=== PATIENT | female | born 1970 ===

== ENCOUNTER 2025-04-05 09:01 | Outpatient (AMB) | payer OTHER, SELFPAY ==
--- OUTSIDE RECORDS SUMMARY | 2025-04-05 10:01 | XMS_ITS | Encounter Summary ---
Author Organization [facility] Address [address] 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 No Sex and Gender Information Value Date Recorded Sex Assigned at Female 04/01/2020 8:33 PM EDT Legal Sex Female 9:32 PM EDT Gender Identity Female 04/01/2020 8:33 PM EDT Sexual Orientation Straight 04/01/2020 8: 33 PM EDT 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 Not on file Not on file documented as of this encounter Plan of Treatment Upcoming Encounters Date Type Department Care Team (Late st Contact Info) Description 10/04/2024 Procedure Pass [address] [address] 04/06/2025 3:45 PM EDT Appointment [facility] [address] [place] [address] Sylvie Eugene MD [address] [place] [address] documented as of this encounter Visit Diagnoses Not on filedocumented in this encounter Care Teams Outbound Sales Consultant Relationship Specialty Start Date End Date Sylvie Eugene MD [address] [place] [address] PCP - General 06/05/17 Katie Landeros NP [address] [place] [address] Historical LMR Provider 06/03/17 2 Sylvie Eugene MD [address] [place] [address] Historical LMR Provider 06/03/17 documented as of this encounter Additional Source Comments The information contained in this document represents components of the legal health record. It is not the complete legal health record.[facility]
--- OUTSIDE RECORDS SUMMARY | 2025-04-05 10:01 | XMS_ITS | Clinical Summary ---
Author Organization [facility] Address [address] [place] [address] Care Team Providers Care Paper Bag Making Machinist Name Role Phone Sylvie Eugene MD Primary Care Provider [phone] Allergies No known active allergies Medications traMADol (ULTRAM) 50 MG tablet Take 50 mg by mouth 4 times daily (every 6 hours) as needed for moderate pain or severe pain. 1-2 tabs (50-100mg) Active acetaminophen (TYLENOL) 650 MG CR tablet Take 650 mg by mouth 4 times daily (every 6 hours) as needed for mild pain or moderate pain. Active albuterol (Proventil HFA) 108 (90 Base) MCG/ACT inhaler Inhale 2 puffs 4 (four) times a day. Active aspirin (ECOTRIN) 325 MG EC tablet Take 325 mg by mouth 2 (two) times a day. Active atorvastatin (LIPITOR) 80 MG tablet Take 80 mg by mouth daily. Active docusate sodium (COLACE) 100 MG capsule Take 100 mg by mouth 2 (two) times a day. Active fluticasone (FloNASE) 50 mcg/spray nasal spray 2 sprays into each nostril daily. Active loratadine (CLARITIN) 10 MG tablet Take 10 mg by mouth daily. Active montelukast (SINGULAIR) 10 MG tablet Take 10 mg by mouth nightly. Active PANTOprazole (PROTONIX) 40 MG EC tablet Take 40 mg by mouth daily. Active polyethylene glycol (miraLAx) 17 g packet Take 17 g by mouth daily as needed for constipation. Active senna (SENOKOT) 8.6 MG Tab tablet Take 1 tablet by mouth daily as needed for constipation. Active ondansetron (ZOFRAN) 4 MG tablet Take 4 mg by mouth 4 times daily (every 6 hours) as needed for nausea or vomiting. Active Social History Tobacco Use Types Packs/Day Years Used Date Smoking Tobacco: Never Assessed OASIS D0700: Social Isolation Answer Da te Recorded Frequency of experiencing loneliness or isolatio n Never 02/01/2023 OASIS A1250: Transportation Answer Date Recorded Lack of Transportation (Medical) No 02/01/2023 Lack of Transportation (Non-Medical) No 02/01/2023 Patient Unable or Declines to Respond No 02/01/2023 Comments Unknown Sex and Gender Information Value Date Recorded Sex Assigned at Not on file Legal Sex Female 10:08 AM EDT Gender Identity Not on file Sexual Orientation Not on file Last Filed Vital Signs Vital Sign Reading Time Taken Comments Blood Pressure 118/76 02/01/2023 11:03 AM EDT Pulse 76 02/01/2023 11:03 AM EDT Temperature 36.4 C (97.5 F) 02/01/2023 11:03 AM EDT Respiratory Rate 20 01/24/2023 3:15 PM EDT Oxygen Saturation 98% 02/01/2023 11:03 AM EDT Inhaled Oxygen Concentration - - Weight 68 kg (150 lb) 01/24/2023 11:45 AM EDT Height 157.5 cm (5' 2 ) 01/24/2023 11:45 AM EDT Body Mass Index 27.44 01/24/2023 11:45 AM EDT Plan of Treatment Health Maintenance Due Date Last Done Comments Hepatitis C Virus Screening 1972 HIV Screening 1985 DTaP/Tdap/Td Vaccines (1 - Tdap) 1991 Hepatitis B Vaccines (1 of 3 - 19+ 3-dose series) 04/17 Pap Smear (Ages 21-65) 1993 Mammogram 2012 Colonoscopy 2017 Pneumococcal Vaccines 50+ (1 of 1 - PCV) 2022 Zoster (Shingles) Vaccine (1 of 2) 2022 COVID-19 Vaccine (1 - 2023- season) 2024 Influenza Vaccine 03/16/2025 Insurance Care Teams Paper Bag Making Machinist Relationship Specialty Start Date End Date Sylvie Eugene MD [address] [place] [address] PCP - General 01/23/23
--- OUTSIDE RECORDS SUMMARY | 2025-04-05 10:01 | XMS_ITS | Encounter Summary ---
Author Organization [facility] Address [address] [facility] [address] [place] [address] Care Team Providers Care Commissioner Public Works Name Role Phone Soo Han DDS Unavailable [phone] Encounter Details Date Type Department Care Team (Latest Contact Info) Description 04/28/2021 Abstract [facility] Dental, Provider, DDS Social History Tobacco Use Types Packs/Day Years Used Date Smoking Tobacco: Never Assessed Comments Unknown Sex and Gender Information Value Date Recorded Sex Assigned at Female 07/20/2022 4:28 PM EST Legal Sex Female 5:35 PM EDT Gender Identity Female 07/20/2022 4:28 PM EST Sexual Orientation Straight 05/16/2024 9: 50 AM EDT documented as of this encounter Plan of Treatment Upcoming Encounters Date Type Department Care Team (Late st Contact Info) Description 08/23/2025 2:00 PM EST Office Visit [facility] [address] [place] [address] Katty Warner documented as of this encounter Visit Diagnoses Not on filedocumented in this encounter Care Teams Commissioner Public Works Relationship Specialty Start Date End Date Soo Han DDS [address] [place] [address] Dental Analytical Research Chemist 02/22/25 documented as of this encounter
== END 2025-04-05 09:26 | disposition home or self-care (01) ==
LOC: HO.HMGAL 09:01
PROVIDERS: PCP Family Medicine; Visit Provider Registered Nurse Emergency
DX: J30.89 Other allergic rhinitis (principal)
CPT/HCPCS: 95117; 95165

== ENCOUNTER 2025-04-18 09:07 | Outpatient (AMB) | payer OTHER, SELFPAY ==
--- OUTSIDE RECORDS SUMMARY | 2025-04-18 09:48 | XMS_ITS | Encounter Summary ---
Author Organization [facility] Address [address] [facility] [address] [place] [address] Phone Care Team Providers Care Torch Straightener Name Role Phone Katie Landeros WASH TANK TENDER Unavailable [phone] Sylvie Eugene MD Unavailable [phone] Sylvie Eugene MD Primary Care Provider Encounter Details Date Type Department Care Team (Late st Contact Info) Description 04/02/2020 Procedure Pass [facility], [address] [address] Social History Tobacco Use Types Packs/Day Years Used Date Smoking Tobacco: Former Smokeless Tobacco: Never Comments:quit 24 years ago [...] Orientation Straight 04/01/2020 8: 33 PM EDT documented as of this encounter Plan of Treatment Not on file documented as of this encounter Visit Diagnoses Not on filedocumented in this encounter Care Teams Torch Straightener Relationship Specialty Start Date End Date Sylvie Eugene MD [address] [place] [address] PCP - General 06/05/17 Katie Landeros NP [address] [place] [address] Historical LMR Provider 06/03/1708/23/ 2 Sylvie Eugene MD [address] [place] [address] Historical LMR Provider 06/03/17 documented as of this encounter Additional Source Comments The information contained in this document represents components of the legal health record. It is not the complete legal health record.[facility]
--- OUTSIDE RECORDS SUMMARY | 2025-04-18 09:48 | XMS_ITS | Encounter Summary ---
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 It is not the complete legal health record.[facility]
--- OUTSIDE RECORDS SUMMARY | 2025-04-18 09:48 | XMS_ITS | Encounter Summary ---
Author Organization [facility] Address [address] [place] [address] Phone Care Team Providers Care Aerodynamics Engineer Name Role Phone Katie Landeros DIRECTOR OF GRADUATE ADMISSIONS Unavailable [phone] Sylvie Eugene MD Unavailable [phone] Sylvie Eugene MD Primary Care Provider Encounter Details Date Type Department Care Team (Late st Contact Info) Description 04/01/2020 Procedure Pass [facility], [facility] - [address] [id number] Social History Tobacco Use Types Packs/Day Years [...] on filedocumented in this encounter Care Teams Aerodynamics Engineer Relationship Specialty Start Date End Date Sylvie Eugene MD [address] [place] [address] PCP - General 06/05/17 Katie Landeros NP [address] [place] [address] Historical LMR Provider 06/03/17 2 Sylvie Eugene MD [address] [place] [address] Historical LMR Provider 06/03/17 documented as of this encounter Additional Source Comments The information contained in this document represents components of the legal health record. It is not the complete legal health record.[facility]
--- OUTSIDE RECORDS SUMMARY | 2025-04-18 09:48 | XMS_ITS | Encounter Summary ---
Author Organization [facility] Address [address] [place] [address] Phone Care Team Providers Care Sheetmetal Patternmaker Name Role Phone Sylvie Eugene MD Unavailable [phone] Sylvie Eugene MD Primary Care Provider Encounter Details Date Type Department Care Team (Late st Contact Info) Description 09/29/2023 Procedure Pass [facility], [facility] [address] [place] [address] Social History Tobacco Use Types Packs/Day Years Used Date Smoking Tobacco: Former Cigarettes 0 08/16/1990 - 08/16/1996 Smokeless Tobacco: Never Comments:quit 24 years ago Alcohol Use Standard Drinks/Week Comments Not 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 Not on anastacia e 12/11/2022 Are you concerned about learning? Not on file 12/11/2022 No 12/11/2022 No 12/11/2022 Digital Access Answer Date Recorded No 01/11/2023 No 01/11/2023 Reliable internet access at home? Not on file 01/11/2023 Device with a working camera? 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 It is not the complete legal health record.[facility]
--- OUTSIDE RECORDS SUMMARY | 2025-04-18 09:48 | XMS_ITS | Encounter Summary ---
Author Organization [facility] Address [address] [facility] [address] [place] [address] Care Team Providers Care File Drawer Finisher Name Role Phone Soo Han DDS Unavailable [phone] Encounter Details Date Type Department Care Team (Latest Contact Info) Description 09/19/2020 Abstract [facility] Dental, Provider, DDS Social [...] Description 08/23/2025 2:00 PM EST Office Visit [facility] DENTAL [address] [place] [address] Katty Warner documented as of this encounter Visit Diagnoses Not on filedocumented in this encounter Care Teams File Drawer Finisher Relationship Specialty Start Date End Date Soo Han DDS [address] [place] [address] Dental Management Assistant 02/22/25 documented as of this encounter
--- OUTSIDE RECORDS SUMMARY | 2025-04-18 09:48 | XMS_ITS | Encounter Summary ---
Author Organization [facility] Address [address] [facility] [address]t [place] [address] Care Team Providers Care Employment Advisor Name Role Phone Soo Han DDS Unavailable [phone] Encounter Details Date Type Department Care Team (Latest Contact Info) Description 03/14/2020 Abstract [facility] Dental, Provider, DDS Social [...] Description 08/23/2025 2:00 PM EST Office Visit [facility] [address] [place] [address] Katty Warner documented as of this encounter Visit Diagnoses Not on filedocumented in this encounter Care Teams Employment Advisor Relationship Specialty Start Date End Date Soo Han DDS [address] [place] [address] Dental Tow Truck Driver 02/22/25 documented as of this encounter
--- OUTSIDE RECORDS SUMMARY | 2025-04-18 09:48 | XMS_ITS | Encounter Summary ---
Author Organization [facility] Address [address] [facility] 7t [place] [address] Care Team Providers Care Constitutional Law Professor Name Role Phone Soo Han DDS Unavailable [phone] Encounter Details Date Type Department Care Team (Latest Contact Info) Description 10/31/2021 Abstract [facility] Dental, Provider, DDS Social [...] Description 08/23/2025 2:00 PM EST Office Visit [facility] D[facility] [address] [place] [address] Katty Warner documented as of this encounter Visit Diagnoses Not on filedocumented in this encounter Care Teams Constitutional Law Professor Relationship Specialty Start Date End Date Soo Han DDS [address] [place] [address] Dental Bowling Floor Desk Clerk 02/22/25 documented as of this encounter
--- OUTSIDE RECORDS SUMMARY | 2025-04-18 09:48 | XMS_ITS | Encounter Summary ---
Author Organization [facility] Address [address] [facility] [address] [place] [address] Phone Care Team Providers Care Bilingual Nanny Name Role Phone Katie Landeros NP Unavailable [phone] Sylvie Eugene MD Unavailable Sylvie Eugene MD Primary Care Provider Encounter Details Date Type Department Care Team (Late st Contact Info) Description 06/15/2019 Ancillary Orders Virtual Department [address] [place] [address] Sylvie Eugene MD [address] [place] [address] Breast screening Social History Tobacco Use Types Packs/Day Years [...] on file documented as of this encounter Results * BI MAMMOGRAM SCREENING WITH TOMOSYNTHESIS WITH CAD (BILATERAL) (07/21/2019 1:52 PM EST) Anatomical Region Laterality Modality Breast Left, Breast Right, Breast Bilateral Bila teral Mammography 07/23/2019 5:58 PM EST Impressions 07/23/2019 6:02 PM EST No findings suspicious for malignancy. In the absence of a worrisome palpable abnormality, annual screening mammography is recommended. BI-RADS CATEGORY: 2 - Benign finding. DENSITY: There are scattered fibroglandular densities. POS [id number] Narrative 07/23/2019 6:02 PM EST COMPARISON: 05/18/2012 through 07/16/2017. Bilateral 3-D tomosynthesis with 2-D reconstructions in the CC and MLO projection of each breast was obtained. Computer-aided detection system also utilized. No new mass, asymmetry, architectural distortion or suspicious calcifications have become apparent on either side. Slight increase in scattered punctate calcifications bilaterally but no new worrisome clusters. Procedure Note Abdirahman Herzog MD - 07/23/2019 COMPARISON: 05/18/2012 through 07/16/2017. Bilateral 3-D tomosynthesis with 2-D reconstructions in the CC and MLOprojection of each breast was obtained. Computer-aided detection systemalso utilized. No new mass, asymmetry, architectural distortion or suspiciouscalcifications have become apparent on either side. Slight increase in scattered punctate calcifications bilaterally but nonew worrisome clusters. IMPRESSION: No findings suspicious for malignancy. In the absence of a worrisomepalpable abnormality, annual screening mammography is recommended. BI-RADS CATEGORY: 2 - Benign finding. DENSITY: There are scattered fibroglandular densities. POS [id number] Sylvie Eugene MD IMG MG EXAMS Final R esult documented in this encounter Visit Diagnoses Diagnosis Breast screening Breast screening, unspecified Breast screening Breast screening, unspecified documented in this encounter Care Teams Bilingual Nanny Relationship Specialty Start Date End Date Sylvie Eugene MD [address] [place] [address] PCP - General 06/05/17 Katie Landeros NP [address] [place] [address] Historical LMR Provider 06/03/17 2 Sylvie Eugene MD [address] [place] [address] Historical LMR Provider 06/03/17 documented as of this encounter Additional Source Comments The information contained in this document represents components of the legal health record. It is not the complete legal health record.[facility]
--- OUTSIDE RECORDS SUMMARY | 2025-04-18 09:48 | XMS_ITS | Encounter Summary ---
Author Organization [facility] Address [address] [facility] [address] [place] [address] Phone Care Team Providers Care Flexible Babysitter Name Role Phone Katie Landeros NP Unavailable [phone] Sylvie Eugene MD Unavailable [phone] Sylvie Eugene MD Primary Care Provider Encounter Details Date Type Department Care Team (Late st Contact Info) Description 06/05/2017 Ancillary Orders [facility], [facility] [address] [place] [address] Sylvie Eugene MD [address] [place], [place] [phone] Diagnosis unknown Social History Tobacco Use Types Packs/Day Years [...] MAMMOGRAM SCREENING WITH TOMOSYNTHESIS WITH CAD (BILATERAL) (07/16/2017 3:39 PM EST) Anatomical Region Laterality Modality Breast Left, Breast Right, Breast Bilateral Bila teral Mammography 07/20/2017 11:3 2 AM EST Impressions 07/20/2017 11:37 AM EST Normal negative. Annual screening is recommended. Patient notified by letter. BI-RADS CATEGORY: 1 - Negative. DENSITY: The breast tissue is extremely dense, an appearance which could obscure a lesion on mammography. POS: [id number] Narrative 07/20/2017 11:37 AM EST Screening Mammogram, bilateral with utilization of computer aided detection and tomosynthesis as well as 2-D C view imaging. Comparison: Dating back to 2013 and the most recent prior examination dated 2015. Findings: No suspicious masses or suspicious clustered microcalcifications are present. No architectural distortion or significant asymmetry is present. Breasts are composed of area dense breast parenchyma. Procedure Note Rachell Bansal MD - 07/20/2017 Screening Mammogram, bilateral with utilization of computer aideddetection and tomosynthesis as well as 2-D C view imaging. Comparison: Dating back to 2013 and the most recent prior examinationdated 2015. Findings: No suspicious masses or suspicious clustered microcalcificationsare present. No architectural distortion or significant asymmetry ispresent. Breasts are composed of area dense breast parenchyma. IMPRESSION: Normal negative. Annual screening is recommended. Patient notified by letter. BI-RADS CATEGORY: 1 - Negative. DENSITY: The breast tissue is extremely dense, an appearance which couldobscure a lesion on mammography. POS: [id number] Sylvie Eugene MD IMG MG EXAMS Final R esult documented in this encounter Visit Diagnoses Diagnosis Diagnosis unknown Diagnosis unknown documented in this encounter Care Teams Flexible Babysitter Relationship Specialty Start Date End Date Sylvie Eugene MD [address] [place] [address] PCP - General 06/05/17 Katie Landeros NP [address] [place] [address] Historical LMR Provider 06/03/1708/23/ 2 Sylvie Eugene MD [address] [place] [address] Historical LMR Provider 06/03/17 documented as of this encounter Additional Source Comments The information contained in this document represents components of the legal health record. It is not the complete legal health record.[facility]
--- OUTSIDE RECORDS SUMMARY | 2025-04-18 09:48 | XMS_ITS | Encounter Summary ---
Author Organization [facility] Address [address] [facility] [address] [place] [address] Phone Care Team Providers Care Media Marketing Director Name Role Phone Katie Landeros DUMP MOTOR OPERATOR Unavailable [phone] Sylvie Eugene MD Unavailable [phone] Sylvie Eugene MD Primary Care Provider Encounter Details Date Type Department Care Team (Late st Contact Info) Description 05/09/2020 Procedure Pass [facility], [address] [id number] Social History Tobacco Use Types Packs/Day Years [...] on filedocumented in this encounter Care Teams Media Marketing Director Relationship Specialty Start Date End Date Sylvie Eugene MD [address] [place] [address] PCP - General 06/05/17 Katie Landeros NP [address] [place] [address] Historical LMR Provider 06/03/1708/23/ 2 Sylvie Eugene MD [address] [place] [address] Historical LMR Provider 06/03/17 documented as of this encounter Additional Source Comments The information contained in this document represents components of the legal health record. It is not the complete legal health record.[facility]
--- OUTSIDE RECORDS SUMMARY | 2025-04-18 09:48 | XMS_ITS | Encounter Summary ---
Author Organization [facility] Address [address] [facility] [address] [place] [address] Phone Care Team Providers Care Model Builder Name Role Phone Katie Landeros NP Unavailable Sylvie Eugene MD Unavailable [phone] Sylvie Eugene MD Primary Care Provider Encounter Details Date Type Department Care Team (Late st Contact Info) Description 05/09/2020 Ancillary Orders Virtual Department [address] [place] [address] Sylvie Eugene MD [address] [place] [address] Breast cancer screening by mammogram Social History Tobacco Use Types Packs/Day Years [...] documented as of this encounter Results * (ABNORMAL) BI MAMMOGRAM SCREENING WITH TOMOSYNTHESIS WITH CAD (BILATERAL) (09/18/2020 10:07 AM EST) Anatomical Region Laterality Modality Breast Left, Breast Right, Breast Bilateral Bila teral Mammography 09/18/2020 11:1 4 AM EST Impressions 09/18/2020 11:26 AM EST Recommend additional imaging for possible developing small mass in the left breast. No other findings suspicious for malignancy. The radiology department will attempt to recall the patient for the additional imaging. BI-RADS CATEGORY: 0 - Incomplete. Need additional imaging evaluation. DENSITY: The breast tissue is heterogeneously dense, which could obscure a lesion on mammography. LEFT RECOMMENDATION DUE DATE: 1 Month Left Additional Imaging RIGHT RECOMMENDATION DUE DATE: 12 Months Right Mammography Screening Recall imaging: Spot compression MLO, 90 degrees ML views left breast, block off left breast ultrasound in case necessary. Narrative 09/18/2020 11:26 AM EST Bilateral mammography is performed in conjunction with computed aided detection. 3-D tomography along with 2-D C view imaging was also performed. Comparison made to previous dated as far back as 05/19/2013 and as recent as 07/21/2019. Possible new partially obscured sub-centimeter mass in the mid-anterior left breast on the MLO tomosynthesis views slightly above the nipple line. Visible correlate is not demonstrated on the cc view. No other suspicious masses, areas of architectural distortion or suspicious microcalcifications. A few scattered bilateral microcatheter occasions are stable. Procedure Note Andrews Mcfadden MD - 09/18/2020 Bilateral mammography is performed in conjunction with computed aideddetection. 3-D tomography along with 2-D C view imaging was alsoperformed. Comparison made to previous dated as far back as 05/19/2013 andas recent as 07/21/2019. Possible new partially obscured sub-centimeter mass in the mid-anteriorleft breast on the MLO tomosynthesis views slightly above the nipple line.Visible correlate is not demonstrated on the cc view. No other suspiciousmasses, areas of architectural distortion or suspiciousmicrocalcifications. A few scattered bilateral microcatheter occasions arestable. IMPRESSION: Recommend additional imaging for possible developing small mass in theleft breast. No other findings suspicious for malignancy. The radiology department will attempt to recall the patient for theadditional imaging. BI-RADS CATEGORY: 0 - Incomplete. Need additional imaging evaluation. DENSITY: The breast tissue is heterogeneously dense, which could obscurea lesion on mammography. LEFT RECOMMENDATION DUE DATE: 1 Month Left Additional Imaging RIGHT RECOMMENDATION DUE DATE: 12 Months Right Mammography Screening Recall imaging: Spot compression MLO, 90 degrees ML views left breast,block off left breast ultrasound in case necessary. us Sylvie Eugene MD IMG MG EXAMS Final R esult documented in this encounter Visit Diagnoses Diagnosis Breast cancer screening by mammogram Breast cancer screening by mammogram documented in this encounter Care Teams Model Builder Relationship Specialty Start Date End Date Sylvie Eugene MD [address] [address] PCP - General 06/05/17 Katie Landeros NP [address] [place] [address] Historical LMR Provider 06/03/17 2 Sylvie Eugene MD [address] [place] [address] Historical LMR Provider 06/03/17 documented as of this encounter Additional Source Comments The information contained in this document represents components of the legal health record. It is not the complete legal health record.[facility]
--- OUTSIDE RECORDS SUMMARY | 2025-04-18 09:48 | XMS_ITS | Encounter Summary ---
Author Organization [employer] Address [address] [facility] [address] [place] [address] Care Team Providers Care Review Manager Name Role Phone Soo Han DDS Unavailable [phone] Encounter Details Date Type Department Care [...] Description 08/23/2025 2:00 PM EST Office Visit [facility] DENT[facility] [address] [place] [address] Katty Warner documented as of this encounter Visit Diagnoses Not on filedocumented in this encounter Care Teams Review Manager Relationship Specialty Start Date End Date Soo Han DDS [address] [place] [address] Dental Par[employer]utuel Ticket Seller 02/22/25 documented as of this encounter
--- OUTSIDE RECORDS SUMMARY | 2025-04-18 09:48 | XMS_ITS | Clinical Summary ---
Author Organization [facility] Address [address] [facility] [address] [place] [address] Phone Care Team Providers Care Senior Planning Analyst Name Role Phone Sylvie Eugene MD Unavailable [phone] Sylvie Eugene MD Primary Care Provider Allergies Active Allergy Reactions Criticality Noted Date Comments Cat/Feline Products 06/09/2023 House Dust 06/09/2023 Other reaction(s): dust mites Pollen Extracts 06/09/2023 Other reaction(s): trees,grass,stone Medications montelukast sodium (MONTELUKAST ORAL) Take by mouth. Active loratadine (CLARITIN) 10 mg tablet Take 10 mg by mouth daily. Active acetaminophen (TYLENOL) 325 mg tablet Take 2 tablets (650 mg total) by mouth every 6 (six) hours as needed for mild pain or headache. 30 tablet 04/03/2020 Active fluticasone propionate (FLONASE ALLERGY RELIEF NASL) 01/14/2005 Active aspirin 325 MG EC tablet Take 1 tablet by mouth every morning. 05/14/2023 Active albuterol 90 mcg/actuation inhaler Inhale 2 puffs into the lungs. 05/17/2020 Active LIPITOR 80 mg tablet Take 80 mg by mouth daily. Active ferrous sulfate 325 mg (65 mg ewiiaapaayp iron) EC tablet Take 325 mg by mouth daily with breakfast. 04/03/2024 Active ascorbic acid, vitamin C, (VITAMIN C) 100 MG tablet Take 100 mg by mouth daily. 04/12/2024 Active Active Problems Problem Noted Date Diagnosed Date Fibroids 01/18/2024 Assessment & Plan (01/18/2024 11:41 AM EDT): The natural history of fibroids was reviewed with the patient. I explained that most fibroids tend to shrink during menopause or at least not grow any further. I explained that the fibroids appear to be stable on ultrasound. Pap smear of cervix with ASCUS, cannot exclude H GSIL 06/25/2023 Assessment & Plan (01/18/2024 11:41 AM EDT): I reviewed the natural history of cervical dysplasia with the patient including appropriate follow-up and treatment. The plan is for repeat Pap and colposcopy in July of this year. Occipital cerebral infarction 04/02/2020 Assessment & Plan (04/02/2020 5:49 PM EDT): Exam today reveals mild decrease sensation right face, and blurry vision of the right periphery. Patient started on aspirin 325 mg daily high-dose statin. This is hypertension has been allowed and blood pressures have been 120s to 140 systolically. *Hypercoagulable labs drawn. *Telemetry reveals sinus rhythm with no evidence of A. Fib. *CTA of the head neck shows no evidence of arterial stenosis. *Echocardiogram-no evidence of arterial septal defect. No evidence of patent foramen ovale. Normal EF no valvular abnormalities. Tele-neurology consulted and recommendations:- -MRI of the brain to confirm that findings on CT and clinically are indeed a stroke. -Dual platelet treatment with aspirin and Plavix for 3 weeks. If in fact patient has a stroke continue Plavix indefinitely and stop aspirin after 3 weeks. -Tele monitoring for afib and implantable loop recorder/30-day holtor at discharge. - OT for evaluation of ability to drive given peripheral vision disturbance. - Recommends outpatient malignant screening-i.e. mammogram, Pap smear. -Follow-up at [facility] stroke clinic in 1 to 2 months for further evaluation of stroke in young person. If MRI does not reveal acute stroke reconsult tele-neurology for further recommendations. Encounters Date Type Department Care Team Description 04/06/2025 3:29 PM EDT - 04/06/2025 11:59 PM EDT Hospital Encounter [facility] [address] [place] [address] Sylvie Eugene MD Discharge Disposition: Home or Self Care 10/04/2024 Procedure Pass [facility] [address] [place] [address] from Last 3 Months Family History Medical History Relation Comments Alzheimer's disease Maternal Grandfather Diabetes Maternal Grandmother Parkinson's disease Maternal Grandmother Cancer Paternal Grandmother Heart block Paternal Grandmother Breast cancer Neg Hx Relation Status Comments Father Alive Maternal Grandfather Maternal Grandmother Mother Alive Paternal Grandfather Paternal Grandmother Sister Alive Social History Tobacco Use Types Packs/Day Years Used Date Smoking Tobacco: Former Cigarettes 0 08/16/1990 - 08/16/1996 Smokeless Tobacco: Never Tobacco Cessation:Counseling Given: Not Answered Comments:quit 24 years ago Alcohol Use Standard [...] 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 Not on file Not on file Last Filed Vital Signs Vital Sign Reading Time Taken Comments Blood Pressure 112/74 07/25/2024 8:40 AM EST Pulse 73 04/03/2020 11:32 AM EDT Temperature 37.2 C (99 F) 04/03/2020 11:32 AM EDT Respiratory Rate 16 04/03/2020 11:32 AM EDT Oxygen Saturation 95% 04/03/2020 9:45 AM EDT Inhaled Oxygen Concentration - - Weight 57.2 kg (126 lb) 07/25/2024 8:40 AM EST Height 157.5 cm (5' 2 ) 07/25/2024 8:40 AM EST Body Mass Index 23.05 07/25/2024 8:40 AM EST Plan of Treatment Health Maintenance Due Date Last Done Comments DEPRESSION SCREENING 1984 HEPATITIS C SCREENING 1990 HIV ONE-TIME SCREENING (18-65 YEARS) 1990 COLOGUARD 2017 COLONOSCOPY 2017 COLORECTAL CANCER SCREENING 2017 FIT TEST 2017 FOBT 2017 SIGMOIDOSCOPY 2017 VIRTUAL COLONOSCOPY 2017 PNEUMOCOCCAL VACCINES (50+ years) (2 of 2 - PCV) 2022 09/20/2017 ZOSTER VACCINES (1 of 2) 2022 INFLUENZA VACCINE (#1) 2025 , 05/11/2022, 05/11/2022, Additional history exists LIPID PANEL 04/02/2025 04/02/2020, 04/02/2020 COVID-19 VACCINE ( season) 2025 05/11/2022, 06/22/2021, 11/27/2020, Additional history exists PAP SMEAR 07/25/2025 07/25/2024, 11/15, 06/09/2023 SMOKING Hx and SMOKELESS TOBACCO SCREENING 04/06/2026 04/06/2025 MAMMOGRAM 04/06/2027 04/06/2025, 12/14, 12/18/2022, Additional history exists Adult Td,Tdap Booster 10/12/2032 10/12/2022, 013 HEPATITIS A VACCINES Aged Out No long er eligible based on patient's age to complete this topic HIB VACCINES Aged Out No longer eligi ble based on patient's age to complete this topic MENINGOCOCCAL VACCINES (ACWY) Aged Out No longer eligible based on patient's age to complete this topic MENINGOCOCCAL VACCINES (B) Aged Out N o longer eligible based on patient's age to complete this topic Medical Devices Not on file Procedures Procedure Name Priority Date/Time Associated Diagnosis Comments BI MAMMOGRAM SCREENING WITH TOMOSYNTHESIS WITH CAD (BILATERAL) Routine 04/06/2025 3:43 PM EDT Breast screening PAP TEST Routine 07/25/2024 12:00 AM EST LIPID PANEL Routine 04/02/2020 3:23 AM EDT from Last 3 Months or Most Recently Relevant to Health Maintenance Results * BI MAMMOGRAM SCREENING WITH TOMOSYNTHESIS WITH CAD (BILATERAL) (04/06/2025 3:43 PM EDT) Anatomical Region Laterality Modality Breast Left, Breast Right, Breast Bilateral Bila teral Mammography 04/09/2025 8:51 AM EDT Impressions 04/09/2025 8:53 AM EDT No mammographic evidence of malignancy in either breast. Annual screening mammography is recommended. BI-RADS 2 BENIGN The patient will be notified of the results and recommendations. Narrative 04/09/2025 8:53 AM EDT BI MAMMOGRAM SCREENING WITH TOMOSYNTHESIS WITH CAD (BILATERAL) Additional patient information: Screening. COMPARISON: Comparison is made with relevant prior imaging. Breast composition: The breasts are heterogeneously dense, which may obscure small masses. FINDINGS: Stable benign calcifications in both breasts. No abnormal masses, suspicious calcifications, or other significant findings are identified mammographically in either breast. Procedure Note Ada Elizondo MD - 04/09/2025 BI MAMMOGRAM SCREENING WITH TOMOSYNTHESIS WITH CAD (BILATERAL) Additional patient information: Screening. COMPARISON: Comparison is made with relevant prior imaging. Breast composition: The breasts are heterogeneously dense, which mayobscure small masses. FINDINGS: Stable benign calcifications in both breasts. No abnormal masses, suspicious calcifications, or other significantfindings are identified mammographically in either breast. IMPRESSION: No mammographic evidence of malignancy in either breast. Annual screening mammography is recommended. BI-RADS 2 BENIGN The patient will be notified of the results and recommendations. us Sylvie Eugene MD IMG MG EXAMS Final R esult * (ABNORMAL) Pap Test (07/25/2024 12:00 AM EST) 07/25/2024 07/26/2024 9:2 8 AM EST Narrative SEE NARRATIVE - 07/27/2024 2:17 PM EST [address] [address] Regional Manager: Spencer Wright MD MANAGER PUBLISHING Cytology Report FINAL DIAGNOSIS A. PAP SMEAR (THIN PREP) CE: SPECIMEN ADEQUACY: Satisfactory for evaluation; transformation zone absent/insufficient. INTERPRETATION: EPITHELIAL CELL ABNORMALITY - SQUAMOUS. Low grade squamous intraepithelial lesion. This specimen was analyzed by the automated ThinPrep Imaging System ([employer] and manually rescreened by a wash oil cooler operator and/or pathologist. Electronically Signed Out By: MD Paradise Munoz CT(ASCP) By his/her signature above, the pathologist listed as making the Final Diagnosis certifies that he/she has personally reviewed this case and confirmed or corrected the diagnosis. The Pap test is a screening test primarily for squamous cancers and precursors and has associated false-negative and false-positive results. New technologies such as liquid-based preparations may decrease but will not eliminate all false-negative results. Regular sampling and follow-up of unexplained clinical signs and symptoms are recommended to minimize false negative results. PROCEDURES/ADDENDA HPV Testing (Requested) Ordered Date: 07/26/2024 A. PAP SMEAR (THIN PREP) CE: High-risk HPV Panel w/ extended genotyping POS HPV 16-NEG HPV 18-NEG HPV 45-NEG HPV 33/58-NEG HPV 31-NEG HPV 56/59/66-NEG HPV 51-NEG HPV 52-POS HPV 35/39/68-NEG Performed by real-time polymerase chain reaction (PCR) at [facility], [address] [place] [address] using the FDA-approved [employer] Onclarity9 HPV Assay with extended genotyping. Uses of the assay in scenarios other than those approved by the FDA should be considered off-label use. The accuracy and precision of this test for all other off-label specimen sources has been verified in the Cytopathology Laboratory of the [facility] and has not been cleared or approved by the U.S. Food and Drug Administration. Clinical correlation is advised. The assay assesses the E6/E7 DNA target and utilizes human beta globin as an internal control. Cytology and HPV testing are screening assays and should not be used as the sole means of detecting cancer. False-positives and false-negatives can occur. CLINICAL HISTORY Date of Last Menstrual Period: 10-08-2022 Menstrual History: Post Menopausal Infection History: HPV: OTHER HIGH RISK, 2022, 2023 Treatment History: Concurrent BXs Other Clinical Conditions: Screening Pap Abnormal PAP: ASCUS-H, 2022 SPECIMEN SOURCE A: PAP SMEAR (THIN PREP) CE Patient Name: KADEEM LEWIS : 1970 (Age: 54) Sex: F Institution: [facility] Location: [facility] Date of Collection: 07/25/2024 Date of Reported: 07/27/2024 12:54 Results to: Norman Godron MD, BS Norman Gordon MD CYTOLOGY ORDERABLES Edited Re sult - Final SEE NARRATIVE * (ABNORMAL) Lipid panel (04/02/2020 3:23 AM EDT) HDL 67 mg/dL [facility] Comment: Interpretation <40 mg/dL: Low HDL cholesterol (major risk factor for CHD) Greater than or equal to 60 mg/dL: High HDL cholesterol ( negative risk factor for CHD) HDL - cholesterol is affected by a number of factors, e.g. smoking, excerise, hormones, sex and age. CHOLESTEROL 204 0 - 240 mg/dL [facility] TRIGLYCERIDES 131 30 - 160 mg/dL [facility] LDL 111 50 - 129 mg/dL [facility] Comment: LDL levels in terms of risk for coronary heart disease: <100 mg/dL: Optimal 100-129 mg/dL: Near or above optimal 130-159 mg/dL: Borderline high 160-189 mg/dL: High >190 mg/dL: Very High CARDIAC RISK RATIO 3.0(L) 3.3 - 4.4 C [facility] 04/02/2020 3:23 AM EDT 04/02/2020 3:32 AM EDT us Garett Romo MD LAB BLOOD ORDERABLES Fin al Result [address] [address] from Last 3 Months or Most Recently Relevant to Health Maintenance Insurance [facility] Advance Directives For more information, please contact: [phone] (9AM - 5PM [place], Wednesday-Wednesday) * Full Code (Confirmed) (Latest Code Status on File) Date Activated Date Inactivated Comments 04/02/2020 5:37 AM Question Answer Comments Code Status Confirmed With: Patient Code Status Communicated To: Inpatient Attending Care Teams Senior Planning Analyst Relationship Specialty Start Date End Date Sylvie Eugene MD [address] [place] [address] PCP - General 06/05/17 Sylvie Eugene MD Historical LMR Provider 06/03/17 Additional Source Comments The information contained in this document represents components of the legal health record. It is not the complete legal health record.[facility]
--- OUTSIDE RECORDS SUMMARY | 2025-04-18 09:48 | XMS_ITS | Encounter Summary ---
Author Organization [facility] Address [address] [place] [address] Phone Care Team Providers Care President Name Role Phone Katie Landeros DIALYSIS CHIEF EQUIPMENT TECHNICIAN Unavailable [phone] Sylvie Eugene MD Unavailable [phone] Sylvie Eugene MD Primary Care Provider Encounter Details Date Type Department Care Team (Late st Contact Info) Description 04/01/2020 Procedure Pass [facility], Ct Scan - [address] [id number] Social History Tobacco Use Types Packs/Day Years [...] on filedocumented in this encounter Care Teams President Relationship Specialty Start Date End Date Sylvie Eugene MD [address] [place] [address] PCP - General 06/05/17 Katie Landeros NP [address] [place] [address] Historical LMR Provider 06/03/17 2 Sylvie Eugene MD [address] [place] [address] Historical LMR Provider 06/03/17 documented as of this encounter Additional Source Comments The information contained in this document represents components of the legal health record. It is not the complete legal health record.[facility]
--- OUTSIDE RECORDS SUMMARY | 2025-04-18 09:48 | XMS_ITS | Encounter Summary ---
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 file Not on file documented as of this encounter Plan of Treatment Not on file documented as of this encounter Visit Diagnoses Not on filedocumented in this encounter Care Teams Medical Writer Relationship Specialty Start Date End Date Sylvie Eugene MD [address] [place] [address] PCP - General 06/05/17 Katie Landeros NP [address] [place] [address] Historical LMR Provider 06/03/17 2 Sylvie Eugene MD [address] [place] [address] Historical LMR Provider 06/03/17 documented as of this encounter Additional Source Comments The information contained in this document represents components of the legal health record. It is not the complete legal health record.[facility]
--- OUTSIDE RECORDS SUMMARY | 2025-04-18 09:48 | XMS_ITS | Clinical Summary ---
Author Organization [employer] Address [address] [place] [address] 7t [place] [address] Care Team Providers Care Road Supervisor Of Engines Name Role Phone Soo Han DDS Unavailable [phone] Allergies No known active allergies Medications amoxicillin (Amoxil) 500 MG capsule TAKE 4 CAPSULES BY MOUTH 1 HOUR BEFORE DENTAL APPOINTMENT 4 Active albuterol 108 (90 Base) MCG/ACT inhaler Inhale 2 puffs. 0 Active aspirin 325 MG EC tablet Take 325 mg by mouth 2 times daily. Active Lipitor 80 MG tablet Take 80 mg by mouth. 2 Active fluticasone (Flonase) 50 MCG/ACT nasal spray Administer 2 sprays into affected nostril(s) Once per day. Active loratadine (Claritin) 10 MG tablet Take 10 mg by mouth Once per day. 8 Active montelukast (Singulair) 10 MG tablet See Instructions, TAKE 1 TABLET DAILY BEFORE DINNER, # 90 tablet, Refills 1, Tot. Refills 1, Maintenance, 03/01/24 10:16:00 EDT, Instructions Replace Required Details, Route to Pharmacy Electronically, [facility], 158, cm, 01/05... 2 Active Encounters Date Type Department Care Team Description 03/14/2025 3:00 PM EDT Office Visit [facility] DENTAL [address] [place] [address] Soo Han DDS 03/08/2025 Travel 02/28/2025 3:00 PM EDT Office Visit [facility] DENT[facility] [address] [place] [address] Soo Han DDS 02/28/2025 Travel 02/27/2025 Travel 02/14/2025 2:00 PM EDT Office Visit [facility] DENT[facility] [address] [place] [address] Soo Han DDS 02/08/2025 3:00 PM EDT Office Visit [facility] DENT[facility] [address] [place] [address] Katty Warner Encounter for dental examination (Primary Dx); Accretions on teeth; Dental calculus; Stage 2 grade A localized periodontitis per AAP/EFP 2017 classification 02/07/2025 Travel from Last 3 Months Social History Tobacco Use Types Packs/Day Years Used Date Smoking Tobacco: Never Assessed Comments Unknown Sex and Gender Information Value Date Recorded Sex Assigned at Female 07/20/2022 4:28 PM EST Legal Sex Female 5:35 PM EDT Gender Identity Female 07/20/2022 4:28 PM EST Sexual Orientation Straight 05/16/2024 9: 50 AM EDT Last Filed Vital Signs Vital Sign Reading Time Taken Comments Blood Pressure 91/69 03/14/2025 3:10 PM EDT Pulse 68 03/14/2025 3:10 PM EDT Temperature - - Respiratory Rate - - Oxygen Saturation - - Inhaled Oxygen Concentration - - Weight - - Height - - Body Mass Index - - Plan of Treatment Upcoming Encounters Date Type Department Care Team (Late st Contact Info) Description 08/23/2025 2:00 PM EST Office Visit [facility] DENTAL [address] [place] [address] Katty Warner Health Maintenance Due Date Last Done Comments CT Colonography 1972 Colonoscopy 1972 Colorectal Cancer Screening 1972 Depression Screening 1972 FIT DNA/Cologuard 1972 FIT 1972 FOBT 1972 HIV Screening 1972 SDOH Screening 1972 Sigmoidoscopy 1972 Disability Screening 1972 Alcohol/Substance Use Screening 1984 Tobacco Screening 1984 Family Planning (PISQ) 1987 Hepatitis C Screening 1990 Hepatitis B Vaccines (1 of 3 - 19+ 3-dose series) 1991 Pap Smear 1993 Cervical Cancer Screening 2002 HPV/Cotest 2002 Pneumococcal Vaccine: 50+ Years (2 of 2 - PCV) 09/20/2018 09/20/2017 Zoster Vaccines (1 of 2) 2022 COVID-19 Vaccine (5 - season) 2024 05/11/2022, 06/22/2021, 11/27/2020, Additional history exists Influenza Vaccine (#1) 2025 , 05/11/2022, 05/11/2022, Additional history exists Dental Oral Exam 08/11/2025 02/08/2025, 01/2024, 12/27/2023, Additional history exists Dental Prophylaxis 08/11/2025 02/08/2025, 1 08/21/2023, 12/27/2023, Additional history exists Dental X-Ray: Full Mouth 11/07/2025 11/06/2022, 12/2016 Mammogram 12/23/2025 12/24/2023, 12/14, 12/18/2022, Additional history exists Dental X-Ray: Bitewings 02/09/2026 02/09/20, 12/27/2023, 11/06/2022, Additional history exists DTaP/Tdap/Td Vaccines (3 - Td or Tdap) 10/12/2032 10/12/2022, 08/18/2012 RSV Patients and Patients Aged 60 years or older (1 - 1-dose 75+ series) 2047 HIB Vaccines Aged Out No longer eligi ble based on patient's age to complete this topic HPV Vaccines Aged Out No longer eligi ble based on patient's age to complete this topic Hepatitis A Vaccines Aged Out No long er eligible based on patient's age to complete this topic IPV Vaccines Aged Out No longer eligi ble based on patient's age to complete this topic Meningococcal B Vaccine Aged Out No l onger eligible based on patient's age to complete this topic Meningococcal Vaccine Aged Out No marycarmen og eligible based on patient's age to complete this topic RSV under 20 months Aged Out No longe r eligible based on patient's age to complete this topic Rotavirus Vaccines Aged Out No longer eligible based on patient's age to complete this topic Procedures Procedure Name Priority Date/Time Associated Diagnosis Comments 31 CROWN - PORCELAIN FUSED TO HIGH MO METAL Routine 03/14/2025 3:00 PM EDT 24 DIF RESIN-BASED COMPOSITE - 3 SURF, ANTERIOR Routine 02/28/2025 3:00 PM EDT 31 CORE BUILDUP, INCL ANY PINS WHEN REQ Routine 02/14/2025 2:00 PM EDT 31 CROWN PREP Routine 02/14/2025 2:00 PM EDT BITEWINGS - 4 RADIOGRAPHIC IMAGES Routine 02/08/2025 3:00 PM EDT Full PROPHYLAXIS - ADULT Routine 025 3:00 PM EDT PERIODIC ORAL EVALUATION - ESTABLISHED PATIENT Routine 02/08/2025 3:00 PM EDT INTRAORAL - COMPLETE SERIES OF RADIOGRAPHIC IMAGES Routine 11/06/2022 1:30 PM EDT from Last 3 Months or Most Recently Relevant to Health Maintenance Insurance [employer] Care Teams Road Supervisor Of Engines Relationship Specialty Start Date End Date Soo Han DDS [address] [place] [address] Dental Automatic Winder Operator 02/22/25
--- OUTSIDE RECORDS SUMMARY | 2025-04-18 09:48 | XMS_ITS | Clinical Summary ---
Author Organization [facility] Address [address] [place] [address] Care Team Providers Care Pbx Inspector Name Role Phone Sylvie Eugene MD Primary Care Provider [phone] Allergies No known active allergies Medications traMADol [...] 2024 Influenza Vaccine 03/16/2025 Insurance Care Teams Pbx Inspector Relationship Specialty Start Date End Date Sylvie Eugene MD [address] [place] [address] PCP - General 01/23/23
--- OUTSIDE RECORDS SUMMARY | 2025-04-18 09:48 | XMS_ITS | Encounter Summary ---
Author Organization [employer] Address [address] [facility] 7t [place] [address] Care Team Providers Care Wort Extractor Name Role Phone Soo Han DDS Unavailable [phone] Encounter Details Date Type Department Care Team (Latest Contact Info) Description 11/11/2018 Abstract [facility] Dental, Provider, DDS Social [...] Description 08/23/2025 2:00 PM EST Office Visit [facility] DENTAL [address] [place] [address] Katty Warner documented as of this encounter Visit Diagnoses Not on filedocumented in this encounter Care Teams Wort Extractor Relationship Specialty Start Date End Date Soo Han DDS [address] [place] [address] Dental Primer Supervisor 02/22/25 documented as of this encounter
--- OUTSIDE RECORDS SUMMARY | 2025-04-18 09:48 | XMS_ITS | Encounter Summary ---
Author Organization [facility] Address [address] [facility] [address] [place] [address] Phone Care Team Providers Care Automotive Technician Instructor Name Role Phone Sylvie Eugene MD Unavailable [phone] Sylvie Eugene MD Primary Care Provider Encounter Details Date Type Department Care Team (Late st Contact Info) Description 09/29/2023 Transcribe Orders Virtual Department [address] [place] [address] Sylvie Eugene MD [address] [place] [address] Breast screening (Primary Dx) Social History Tobacco Use Types Packs/Day Years [...] 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 Annual screening mammography is recommended. BI-RADS 2 BENIGN The patient will be notified of the results and recommendations. Narrative 12/29/2023 8:59 AM EDT BI MAMMOGRAM SCREENING WITH TOMOSYNTHESIS WITH CAD (BILATERAL) Additional patient information: Screening. COMPARISON: Comparison is made with relevant prior imaging, dating back to 2016. Breast composition: The breast tissue is heterogeneously dense which may obscure small masses. FINDINGS: There are scattered groups of amorphous and punctate calcifications bilaterally, there has been no significant interval change dating back to 2016. No abnormal masses, suspicious calcifications, or other significant findings are identified mammographically in either breast. Procedure Note Katie Martinez MD - 12/29/2023 BI MAMMOGRAM SCREENING WITH TOMOSYNTHESIS WITH CAD (BILATERAL) Additional patient information: Screening. COMPARISON: Comparison is made with relevant prior imaging, dating back [id number]. Breast composition: The breast tissue is heterogeneously dense which mayobscure small masses. FINDINGS: There are scattered groups of amorphous and punctate calcificationsbilaterally, there has been no significant interval change dating back [id number]. No abnormal masses, suspicious calcifications, or other significantfindings are identified mammographically in either breast. IMPRESSION: No mammographic evidence of malignancy in either breast. Annual screening mammography is recommended. BI-RADS 2 BENIGN The patient will be notified of the results and recommendations. us Sylvie Eugene MD IMG MG EXAMS Final R esult documented in this encounter Visit Diagnoses Diagnosis Breast screening- Primary Breast screening, unspecified Breast screening Breast screening, unspecified documented in this encounter Care Teams Automotive Technician Instructor Relationship Specialty Start Date End Date Sylvie Eugene MD [address] [place] [address] PCP - General 06/05/17 Sylvie Eugene MD Historical LMR Provider 06/03/17 documented as of this encounter Additional Source Comments The information contained in this document represents components of the legal health record. It is not the complete legal health record.[facility]
--- OUTSIDE RECORDS SUMMARY | 2025-04-18 09:49 | XMS_ITS | Encounter Summary ---
Author Organization [facility] Address [address] [facility] [address] [place] [address] Phone Care Team Providers Care Public Health Aide Name Role Phone Katie Landeros RN FAMILY Unavailable [phone] Sylvie Eugene MD Unavailable [phone] Sylvie Eugene MD Primary Care Provider Encounter Details Date Type Department Care Team (Late st Contact Info) Description 09/19/2020 Procedure Pass [facility] - [address] [place] [address] Social History Tobacco Use Types Packs/Day Years [...] on filedocumented in this encounter Care Teams Public Health Aide Relationship Specialty Start Date End Date Sylvie Eugene MD [address] [place] [address] PCP - General 06/05/17 Katie Landeros NP [address] [place] [address] Historical LMR Provider 06/03/17 2 Sylvie Eugene MD [address] [place] [address] Historical LMR Provider 06/03/17 documented as of this encounter Additional Source Comments The information contained in this document represents components of the legal health record. It is not the complete legal health record.[facility]
--- OUTSIDE RECORDS SUMMARY | 2025-04-18 09:49 | XMS_ITS | Encounter Summary ---
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 It is not the complete legal health record.[facility]
--- OUTSIDE RECORDS SUMMARY | 2025-04-18 09:49 | XMS_ITS | Encounter Summary ---
Author Organization [facility] Address [email or web address] [facility] [address] [place] [address] Phone Care Team Providers Care Ash Collector Name Role Phone Katie Landeros NP Unavailable Sylvie Eugene MD Unavailable Sylvie Eugene MD Primary Care Provider Encounter Details Date Type Department Care Team (Late st Contact Info) Description 09/19/2020 Ancillary Orders Virtual Department [address] [place] [address] Sylvie Eugene MD [address] [place] [address] Abnormal mammogram Social History Tobacco Use Types Packs/Day [...] as of this encounter Results * BI US BREAST LIMITED (LEFT) (09/27/2020 1:57 PM EST) Anatomical Region Laterality Modality Breast Left, Breast Bilateral Left Ul trasound 09/27/2020 2:18 PM EST Narrative 09/27/2020 2:18 PM EST Please see diagnostic mammogram report for details. Procedure Note Andrews Mcfadden MD - 09/27/2020 Please see diagnostic mammogram report for details. us Sylvie Eugene MD IMG US BREAST Final R esult * BI MAMMOGRAM DIAGNOSTIC WITH TOMOSYNTHESIS WITH CAD (LEFT) (09/27/2020 1:05 PM EST) Anatomical Region Laterality Modality Breast Left Left Mammography 09/27/2020 2:15 PM EST Impressions 09/27/2020 2:18 PM EST The small asymmetry in the left breast on the MLO view of 09/18/2020 solitary above the nipple line is consistent with superimposed fibroglandular tissue. Bilateral screening mammography in one year recommended. The results were given to the patient by the technologist at the time of the examination. BI-RADS CATEGORY: 2 - Benign finding. DENSITY: The breast tissue is heterogeneously dense, which could obscure a lesion on mammography. Narrative 09/27/2020 2:18 PM EST HISTORY: Abnormal left screening mammogram. EXAM: Left diagnostic mammogram, left breast ultrasound. COMPARISON: Previous left mammograms, most recent 09/18/2020. FINDINGS: The small asymmetry slightly above the nipple line in the mid-anterior aspect of the left breast on the MLO view of 09/18/2020 does not persist on a 90 degree ML view and is much less conspicuous on a spot compression MLO view. Ultrasound of the left breast performed. No sonographic abnormalities demonstrated. Procedure Note Andrews Mcfadden MD - 09/27/2020 HISTORY: Abnormal left screening mammogram. EXAM: Left diagnostic mammogram, left breast ultrasound. COMPARISON: Previous left mammograms, most recent 09/18/2020. FINDINGS: The small asymmetry slightly above the nipple line in the mid-anterioraspect of the left breast on the MLO view of 09/18/2020 does not persist ursula 90 degree ML view and is much less conspicuous on a spot compression MLOview. Ultrasound of the left breast performed. No sonographicabnormalities demonstrated. IMPRESSION: The small asymmetry in the left breast on the MLO view of 09/18/2020olitary above the nipple line is consistent with superimposedfibroglandular tissue. Bilateral screening mammography in one yearrecommended. The results were given to the patient by the technologist at the time ofthe examination. BI-RADS CATEGORY: 2 - Benign finding. DENSITY: The breast tissue is heterogeneously dense, which could obscurea lesion on mammography. us Sylvie Eugene MD IMG MG EXAMS Final R esult documented in this encounter Visit Diagnoses Diagnosis Abnormal mammogram Abnormal mammogram, unspecified Abnormal mammogram Abnormal mammogram, unspecified Abnormal mammogram Abnormal mammogram, unspecified documented in this encounter Care Teams Ash Collector Relationship Specialty Start Date End Date Sylvie Eugene MD [address] [place] [address] PCP - General 06/05/17 Katie Landeros NP [address] [place] [address] Historical LMR Provider 06/03/1708/23/ 2 Sylvie Eugene MD [address] [place] [address] Historical LMR Provider 06/03/17 documented as of this encounter Additional Source Comments The information contained in this document represents components of the legal health record. It is not the complete legal health record.[facility]
== END 2025-04-18 09:18 | disposition home or self-care (01) ==
LOC: HO.HMGAL 09:07
PROVIDERS: PCP Family Medicine; Visit Provider Registered Nurse Emergency
DX: J30.89 Other allergic rhinitis (principal)
CPT/HCPCS: 95117; 95165

== ENCOUNTER 2025-04-25 08:49 | Outpatient (AMB) | payer OTHER, SELFPAY ==
--- OUTSIDE RECORDS SUMMARY | 2025-04-25 10:17 | XMS_ITS | Encounter Summary ---
Author Organization [employer] Address [address] [facility] 7t [place] [address] Care Team Providers Care Human Resources Manager Manufacturing Name Role Phone Soo Han DDS Unavailable [phone] Encounter Details Date Type Department Care [...] Description 08/23/2025 2:00 PM EST Office Visit [facility] DENTAL [address] [place] [address] Katty Warner documented as of this encounter Visit Diagnoses Not on filedocumented in this encounter Care Teams Human Resources Manager Manufacturing Relationship Specialty Start Date End Date Soo Han DDS [address] [place] [address] Dental Customer Contact Sales Associate 02/22/25 documented as of this encounter
--- OUTSIDE RECORDS SUMMARY | 2025-04-25 10:17 | XMS_ITS | Clinical Summary ---
Author Organization [facility] Address [address] [place] [address] Care Team Providers Care Wood Room Hand Name Role Phone Sylvie Eugene MD Primary Care Provider [phone] Allergies No known active allergies Medications traMADol [...] 2024 Influenza Vaccine 03/16/2025 Insurance Care Teams Wood Room Hand Relationship Specialty Start Date End Date Sylvie Eugene MD [address] [place] [address] PCP - General 01/23/23
--- OUTSIDE RECORDS SUMMARY | 2025-04-25 10:17 | XMS_ITS | Encounter Summary ---
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 Breast composition: The breast tissue is heterogeneously dense which mayobscure small masses. FINDINGS: There are scattered groups of amorphous and punctate calcificationsbilaterally, there has been no significant interval change dating back [id number]. No abnormal masses, suspicious calcifications, or other [...] unspecified documented in this encounter Care Teams Ball Worker Relationship Specialty Start Date End Date Sylvie Eugene MD [address] [place] [address] PCP - General 06/05/17 Sylvie Eugene MD Historical LMR Provider 06/03/17 documented as of this encounter Additional Source Comments The information contained in this document represents components of the legal health record. It is not the complete legal health record.[facility]
--- OUTSIDE RECORDS SUMMARY | 2025-04-25 10:17 | XMS_ITS | Encounter Summary ---
Author Organization [employer] Address [address] [facility] 7t [place] [address] Care Team Providers Care Help Desk Operator Name Role Phone Soo Han DDS Unavailable [phone] Encounter Details Date Type Department Care [...] Description 08/23/2025 2:00 PM EST Office Visit [facility] DENTAL [address] [place] [address] Katty Warner documented as of this encounter Visit Diagnoses Not on filedocumented in this encounter Care Teams Help Desk Operator Relationship Specialty Start Date End Date Soo Han DDS [address] [place] [address] Dental Material Expediter 02/22/25 documented as of this encounter
--- OUTSIDE RECORDS SUMMARY | 2025-04-25 10:17 | XMS_ITS | Clinical Summary ---
Author Organization [employer] Address [address] [place] [address] 7t [place] [address] Care Team Providers Care Prepared Foods Associate Name Role Phone Soo Han DDS Unavailable [phone] Allergies No known active allergies Medications [...] Replace Required Details, Route to Pharmacy Electronically, [facility], 158, cm, 01/05... 2 Active Encounters Date Type Department Care Team Description 03/14/2025 3:00 PM EDT Office Visit [facility] DENTAL [address] [place] [address] Soo Han DDS 03/08/2025 Travel 02/28/2025 3:00 PM EDT Office Visit [facility] DENTAL [address] [place] [address] Soo Han DDS 02/28/2025 Travel 02/27/2025 Travel 02/14/2025 2:00 PM EDT Office Visit [facility] DENTAL [address] [place] [address] Soo Han DDS 02/08/2025 3:00 PM EDT Office Visit [facility] DENT[facility] [address] [place] [address] Katty Warner Encounter for dental examination (Primary [...] Description 08/23/2025 2:00 PM EST Office Visit [facility] DENT[facility] [address] [place] [address] Katty Warner Health Maintenance Due Date Last [...] 2) 2022 COVID-19 Vaccine (5 - season) 2025 05/11/2022, 06/22/2021, 11/27/2020, Additional history exists Influenza Vaccine (#1) 2025 , 05/11/2022, 05/11/2022, Additional history exists Dental Oral Exam 08/11/2025 02/08/2025, 01/2024, 12/27/2023, Additional history exists Dental Prophylaxis 08/11/2025 02/08/2025, 1 08/21/2023, 12/27/2023, Additional history exists Dental X-Ray: Full Mouth 11/07/2025 11/06/2022, 12/2016 Mammogram 12/23/2025 12/24/2023, 12/14, 12/18/2022, Additional history exists Dental X-Ray: Bitewings 02/09/2026 02/09/20 25, 12/27/2023, 11/06/2022, Additional history exists DTaP/Tdap/Td Vaccines [...] Most Recently Relevant to Health Maintenance Insurance [employer] Care Teams Prepared Foods Associate Relationship Specialty Start Date End Date Soo Han DDS [address] [place] [address] Dental Corporate Fitness Program Coordinator 02/22/25
--- OUTSIDE RECORDS SUMMARY | 2025-04-25 10:17 | XMS_ITS | Encounter Summary ---
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 It is not the complete legal health record.[facility]
--- OUTSIDE RECORDS SUMMARY | 2025-04-25 10:17 | XMS_ITS | Encounter Summary ---
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 It is not the complete legal health record.[facility]
--- OUTSIDE RECORDS SUMMARY | 2025-04-25 10:17 | XMS_ITS | Encounter Summary ---
Author Organization [employer] Address [address] [facility] 7t [place] [address] Care Team Providers Care Padded Products Inspector Trimmer Name Role Phone Soo Han DDS Unavailable Encounter Details Date Type Department Care Team [...] 2:00 PM EST Office Visit [facility] [address] [place] [address] Katty Warner documented as of this encounter Visit Diagnoses Not on filedocumented in this encounter Care Teams Padded Products Inspector Trimmer Relationship Specialty Start Date End Date Soo Han DDS [address] [place] [address] Dental Genetic Engineer 02/22/25 documented as of this encounter
--- OUTSIDE RECORDS SUMMARY | 2025-04-25 10:17 | XMS_ITS | Encounter Summary ---
Author Organization [facility] Address [address] [facility] [address] [place] [address] Phone Care Team Providers Care Marketing Reporting Analyst Name Role Phone Katie Landeros NP Unavailable [phone] Sylvie Eugene MD Unavailable [phone] Sylvie Eugene MD Primary Care Provider Encounter Details Date Type Department Care Team (Late st Contact Info) Description 06/05/2017 Ancillary Orders [facility], [facility] [address] [place] [address] Sylvie Eugene MD [address] [place], [place] [id number] Diagnosis unknown Social History Tobacco Use Types [...] could obscure a lesion on mammography. POS: [id number] Narrative 07/20/2017 11:37 AM EST Screening Mammogram, [...] which couldobscure a lesion on mammography. POS: [id number] Sylvie Eugene MD IMG MG EXAMS Final R esult documented in this encounter Visit Diagnoses Diagnosis Diagnosis unknown Diagnosis unknown documented in this encounter Care Teams Marketing Reporting Analyst Relationship Specialty Start Date End Date Sylvie Eugene MD [address] [place] [address] PCP - General 06/05/17 Katie Landreos NP 30 [place] [address] Historical LMR Provider 06/03/1708/23/ 2 Sylvie Eugene MD [address] [place] [address] Historical LMR Provider 06/03/17 documented as of this encounter Additional Source Comments The information contained in this document represents components of the legal health record. It is not the complete legal health record.[facility]
--- OUTSIDE RECORDS SUMMARY | 2025-04-25 10:17 | XMS_ITS | Encounter Summary ---
Author Organization [employer] Address [address] [facility] 7t [place] [address] Care Team Providers Care Director Of Marketing And Promotions Name Role Phone Soo Han DDS Unavailable [phone] Encounter Details Date Type Department Care [...] Description 08/23/2025 2:00 PM EST Office Visit [facility] D[facility] [address] [place] [address] Katty Warner documented as of this encounter Visit Diagnoses Not on filedocumented in this encounter Care Teams Director Of Marketing And Promotions Relationship Specialty Start Date End Date Soo Han DDS 9 [place] [address] Dental Photographic Laboratory Technician 02/22/25 documented as of this encounter
--- OUTSIDE RECORDS SUMMARY | 2025-04-25 10:17 | XMS_ITS | Clinical Summary ---
Author Organization [facility] Address [address] [place] [address] Phone Care Team Providers Care Manager Relationship Name Role Phone Sylvie Eugene MD Unavailable [phone] Sylvie Eugene MD Primary Care Provider Allergies [...] Active ferrous sulfate 325 mg (65 mg paskenta iron) EC tablet Take 325 mg by [...] malignant screening-i.e. mammogram, Pap smear. -Follow-up at [facility] stroke clinic in 1 to 2 months for further evaluation of stroke in young person. If MRI does not reveal acute stroke reconsult tele-neurology for further recommendations. 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 PAP SMEAR (THIN PREP) CE: SPECIMEN ADEQUACY: Satisfactory for evaluation; transformation zone absent/insufficient. INTERPRETATION: EPITHELIAL CELL ABNORMALITY - SQUAMOUS. Low grade squamous intraepithelial lesion. This specimen was analyzed by the automated ThinPrep Imaging System (Advanced-Tec.) and manually rescreened by a rn quality and/or pathologist. Electronically Signed Out By: MD [...] by real-time polymerase chain reaction (PCR) at [facility], [address] [place] [address] using the FDA-approved [employer] Onclarity9 HPV Assay with extended genotyping. Uses of the assay in scenarios other than those approved by the FDA should be considered off-label use. The accuracy and precision of this test for all other off-label specimen sources has been verified in the Cytopathology Laboratory of the [facility] and has not been cleared or [...] : 1970 (Age: 54) Sex: F Institution: [facility] Location: [facility] Date of Collection: 07/25/2024 Date of Reported: 07/27/2024 12:54 Results to: Norman Gordon MD, BS Norman Gordon MD CYTOLOGY ORDERABLES Edited Re sult - Final SEE NARRATIVE * (ABNORMAL) Lipid panel (04/02/2020 3:23 AM EDT) HDL 67 mg/dL [facility] Comment: Interpretation <40 mg/dL: Low HDL cholesterol (major risk factor for CHD) Greater than or equal to 60 mg/dL: High HDL cholesterol ( negative risk factor for CHD) HDL - cholesterol is affected by a number of factors, e.g. smoking, excerise, hormones, sex and age. CHOLESTEROL 204 0 - 240 mg/dL [facility] TRIGLYCERIDES 131 30 - 160 mg/dL [facility] LDL 111 50 - 129 mg/dL [facility] Comment: LDL levels in terms of risk for coronary heart disease: <100 mg/dL: Optimal 100-129 mg/dL: Near or above optimal 130-159 mg/dL: Borderline high 160-189 mg/dL: High >190 mg/dL: Very High CARDIAC RISK RATIO 3.0(L) 3.3 - 4.4 [facility] 04/02/2020 3:23 AM EDT 04/02/2020 3:32 AM EDT us Garett Romo MD LAB BLOOD ORDERABLES Fin al Result [address] [address] from Last 3 Months or Most Recently Relevant to Health Maintenance Insurance [facility] Advance Directives For more information, please contact: [phone] (9AM - 5PM [place], Wednesday-Wednesday) * Full Code (Confirmed) (Latest Code Status on File) Date Activated Date Inactivated Comments 04/02/2020 5:37 AM Question Answer Comments Code Status Confirmed With: Patient Code Status Communicated To: Inpatient Attending Care Teams Manager Relationship Relationship Specialty Start Date End Date Sylvie Eugene MD [address] [place] [address] PCP - General 06/05/17 Sylvie Eugene MD Historical LMR Provider 06/03/17 Additional Source Comments The information contained in this document represents components of the legal health record. It is not the complete legal health record.[facility]
--- OUTSIDE RECORDS SUMMARY | 2025-04-25 10:17 | XMS_ITS | Encounter Summary ---
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 Not on file documented as of this encounter Plan of Treatment Not on file documented as of this encounter Visit Diagnoses Not on filedocumented in this encounter Care Teams Aircraft Maintenance Instructor Relationship Specialty Start Date End Date Sylvie Eugene MD [address] [place] [address] PCP - General 06/05/17 Katie Landeros NP [address] [place] [address] Historical LMR Provider 06/03/17 2 Sylvie Eugene MD [address] [place] [address] Historical LMR Provider 06/03/17 documented as of this encounter Additional Source Comments The information contained in this document represents components of the legal health record. It is not the complete legal health record.[facility]
--- OUTSIDE RECORDS SUMMARY | 2025-04-25 10:17 | XMS_ITS | Encounter Summary ---
Author Organization [employer] Address [address] [facility] 7t [place] [address] Care Team Providers Care Industrial Maintenance Tech Name Role Phone Soo Han DDS Unavailable [phone] Encounter Details Date Type Department Care [...] 2:00 PM EST Office Visit [facility] D[facility] [address] [place] [address] Katty Warner documented as of this encounter Visit Diagnoses Not on filedocumented in this encounter Care Teams Industrial Maintenance Tech Relationship Specialty Start Date End Date Soo Han DDS 9 [place] [address] Dental Patternmaker Apprentice Wood 02/22/25 documented as of this encounter
--- OUTSIDE RECORDS SUMMARY | 2025-04-25 10:18 | XMS_ITS | Encounter Summary ---
Author Organization [facility] Address [address] [facility] [address] [place] [address] Phone Care Team Providers Care Applications Sales Consultant Name Role Phone Katie Landeros NP Unavailable Sylvie Eugene MD Unavailable Sylvie Eugene MD Primary Care Provider Encounter Details Date Type Department Care Team (Late st Contact Info) Description 06/15/2019 Ancillary Orders Virtual Department 30 [place] [address] Sylvie Eugene MD [address] [place] [address] Breast screening Social History Tobacco Use Types [...] unspecified documented in this encounter Care Teams Applications Sales Consultant Relationship Specialty Start Date End Date Sylvie Eugene MD [address] [place] [address] PCP - General 06/05/17 Katie Landeros NP 30 [place] [address] Historical LMR Provider 06/03/17 2 Sylvie Eugene MD 30 [place] [address] Historical LMR Provider 06/03/17 documented as of this encounter Additional Source Comments The information contained in this document represents components of the legal health record. It is not the complete legal health record.[facility]
--- OUTSIDE RECORDS SUMMARY | 2025-04-25 10:18 | XMS_ITS | Encounter Summary ---
Author Organization [facility] Address [address] [place] [address] Phone Care Team Providers Care Finance Assistant Name Role Phone Katie Landeros BEAN SPROUT GROWER Unavailable [phone] Sylvie Eugene MD Unavailable [phone] Sylvie Eugene MD Primary Care Provider Encounter Details Date Type Department Care Team (Late st Contact Info) Description 04/01/2020 Procedure Pass [facility], Ct Scan - [address] [id number] Social History Tobacco Use Types Packs/Day Years [...] on filedocumented in this encounter Care Teams Finance Assistant Relationship Specialty Start Date End Date Sylvie Eugene MD [address] [place] [address] PCP - General 06/05/17 Katie Landeros NP [address] [place] [address] Historical LMR Provider 06/03/17 2 Sylvie Eugene MD [address] [place] [address] Historical LMR Provider 06/03/17 documented as of this encounter Additional Source Comments The information contained in this document represents components of the legal health record. It is not the complete legal health record.[facility]
--- OUTSIDE RECORDS SUMMARY | 2025-04-25 10:18 | XMS_ITS | Encounter Summary ---
Author Organization [facility] Address [address] [facility] [address] [place] [address] Phone Care Team Providers Care Risk Management Intern Name Role Phone Katie Landeros NP Unavailable Sylvie Eugene MD Unavailable Sylvie Eugene MD Primary Care Provider Encounter Details Date Type Department Care Team (Late st Contact Info) Description 09/19/2020 Ancillary Orders Virtual Department [address] [place] [address] Sylvie Eugene MD [address] [place] [address] Abnormal mammogram Social History Tobacco Use Types [...] unspecified documented in this encounter Care Teams Risk Management Intern Relationship Specialty Start Date End Date Sylvie Eugene MD [address] [place] [address] PCP - General 06/05/17 Katie Landeros NP 30 [place] [address] Historical LMR Provider 06/03/1708/23/ 2 Sylvie Eugene MD [address] [place] [address] Historical LMR Provider 06/03/17 documented as of this encounter Additional Source Comments The information contained in this document represents components of the legal health record. It is not the complete legal health record.[facility]
--- OUTSIDE RECORDS SUMMARY | 2025-04-25 10:18 | XMS_ITS | Encounter Summary ---
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 It is not the complete legal health record.[facility]
--- OUTSIDE RECORDS SUMMARY | 2025-04-25 10:18 | XMS_ITS | Encounter Summary ---
Author Organization [facility] Address [address] [facility] [address] [place] [address] Phone Care Team Providers Care Clinical Medical Transcriptionist Name Role Phone Katie Landeros CVOR NURSE Unavailable [phone] Sylvie Eugene MD Unavailable [phone] Sylvie Eugene MD Primary Care Provider Encounter Details Date Type Department Care Team (Late st Contact Info) Description 04/02/2020 Procedure Pass [facility], [address] [address] Social History Tobacco Use Types Packs/Day Years [...] on filedocumented in this encounter Care Teams Clinical Medical Transcriptionist Relationship Specialty Start Date End Date Sylvie Eugene MD [address] [place] [address] PCP - General 06/05/17 Katie Landeros NP [address] [place] [address] Historical LMR Provider 06/03/1708/23/ 2 Sylvie Eugene MD [address] [place] [address] Historical LMR Provider 06/03/17 documented as of this encounter Additional Source Comments The information contained in this document represents components of the legal health record. It is not the complete legal health record.[facility]
--- OUTSIDE RECORDS SUMMARY | 2025-04-25 10:18 | XMS_ITS | Encounter Summary ---
Author Organization [facility] Address [address] [facility] [address] [place] [address] Phone Care Team Providers Care Machinist Outside Name Role Phone Katie Landeros COCONUT BOILER Unavailable [phone] Sylvie Eugene MD Unavailable [phone] Sylvie Eugene MD Primary Care Provider Encounter Details Date Type Department Care Team (Late st Contact Info) Description 05/09/2020 Procedure Pass [facility], [address] [phone] Social History Tobacco Use Types Packs/Day Years [...] on filedocumented in this encounter Care Teams Machinist Outside Relationship Specialty Start Date End Date Sylvie Eugene MD [address] [place] [address] PCP - General 06/05/17 Katie aLnderos NP [address] [place] [address] Historical LMR Provider 06/03/1708/23/ 2 Sylvie Eugene MD [address] [place] [address] Historical LMR Provider 06/03/17 documented as of this encounter Additional Source Comments The information contained in this document represents components of the legal health record. It is not the complete legal health record.[facility]
--- OUTSIDE RECORDS SUMMARY | 2025-04-25 10:18 | XMS_ITS | Encounter Summary ---
Author Organization [facility] Address [address] [facility] [address] [place] [address] Phone Care Team Providers Care Devulcanizer Head Name Role Phone Katie Landeros NP Unavailable Sylvie Eugene MD Unavailable [phone] Sylvie Eugene MD Primary Care Provider Encounter Details Date Type Department Care Team (Late st Contact Info) Description 05/09/2020 Ancillary Orders Virtual Department [address] [place] [address] Sylvie Eugene MD [address] [place] [address] Breast cancer screening by mammogram Social History [...] mammogram documented in this encounter Care Teams Devulcanizer Head Relationship Specialty Start Date End Date Sylvie Eugene MD [address] [address] PCP - General 06/05/17 Katie Landeros NP 30 [place] [address] Historical LMR Provider 06/03/17 2 Sylvie Eugene MD 30 [place] [address] Historical LMR Provider 06/03/17 documented as of this encounter Additional Source Comments The information contained in this document represents components of the legal health record. It is not the complete legal health record.[facility]
--- OUTSIDE RECORDS SUMMARY | 2025-04-25 10:18 | XMS_ITS | Encounter Summary ---
Author Organization [facility] Address [address] [place] [address] Phone Care Team Providers Care Hoof Trimmer Name Role Phone Katie Landeros SPRAYER AUTOMATIC SPRAY MACHINE Unavailable [phone] Sylvie Eugene MD Unavailable [phone] Sylvie Eugene MD Primary Care Provider Encounter Details Date Type Department Care Team (Late st Contact Info) Description 04/01/2020 Procedure Pass [facility], Ct Scan - [address] [phone] Social History Tobacco Use Types Packs/Day Years [...] on filedocumented in this encounter Care Teams Hoof Trimmer Relationship Specialty Start Date End Date Sylvie Eugene MD [address] [place] [address] PCP - General 06/05/17 Katie Landeros NP [address] [place] [address] Historical LMR Provider 06/03/17 2 Sylvie Eugene MD [address] [place] [address] Historical LMR Provider 06/03/17 documented as of this encounter Additional Source Comments The information contained in this document represents components of the legal health record. It is not the complete legal health record.[facility]
--- OUTSIDE RECORDS SUMMARY | 2025-04-25 10:18 | XMS_ITS | Encounter Summary ---
Author Organization [facility] Address [address] [facility] [address] [place] [address] Phone Care Team Providers Care Associate School Psychologist Name Role Phone Katie Landeros HOT DOG VENDOR Unavailable [phone] Sylvie Eugene MD Unavailable [phone] Sylvie Eugene MD Primary Care Provider Encounter Details Date Type Department Care Team (Late st Contact Info) Description 09/19/2020 Procedure Pass [facility] - [address] [place] [address] Social History Tobacco Use Types Packs/Day Years [...] on filedocumented in this encounter Care Teams Associate School Psychologist Relationship Specialty Start Date End Date Sylvie Eugene MD [address] [place] [address] PCP - General 06/05/17 Katie Landeros NP [address] [place] [address] Historical LMR Provider 06/03/17 2 Sylvie Eugene MD [address] [place] [address] Historical LMR Provider 06/03/17 documented as of this encounter Additional Source Comments The information contained in this document represents components of the legal health record. It is not the complete legal health record.[facility]
== END 2025-04-25 08:52 | disposition home or self-care (01) ==
LOC: HO.HMGAL 08:49
PROVIDERS: PCP Family Medicine; Visit Provider Registered Nurse Emergency
DX: J30.89 Other allergic rhinitis (principal)
CPT/HCPCS: 95117; 95165

== ENCOUNTER 2025-04-30 09:02 | Outpatient (AMB) | payer OTHER, SELFPAY ==
--- OUTSIDE RECORDS SUMMARY | 2025-04-30 10:32 | XMS_ITS | Encounter Summary ---
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 Not on file documented as of this encounter Plan of Treatment Not on file documented as of this encounter Visit Diagnoses Not on filedocumented in this encounter Care Teams Home Health Occupational Therapist Relationship Specialty Start Date End Date Sylvie Eugene MD [address] [place] [address] PCP - General 06/05/17 Katie Landeros NP [address] [place] [address] Historical LMR Provider 06/03/17 2 Sylvie Eugene MD [address] [place] [address] Historical LMR Provider 06/03/17 documented as of this encounter Additional Source Comments The information contained in this document represents components of the legal health record. It is not the complete legal health record.[facility]
--- OUTSIDE RECORDS SUMMARY | 2025-04-30 10:32 | XMS_ITS | Encounter Summary ---
Author Organization [employer] Address [address] [facility] 7t [place] [address] Care Team Providers Care Mailing Machine Operator Name Role Phone Soo Han DDS Unavailable [phone] Encounter Details Date Type Department Care [...] 2:00 PM EST Office Visit [facility] DENTAL [address] [place] [address] Katty Warner documented as of this encounter Visit Diagnoses Not on filedocumented in this encounter Care Teams Mailing Machine Operator Relationship Specialty Start Date End Date Soo Han DDS [address] [place] [address] Dental High School Coordinator 02/22/25 documented as of this encounter
--- OUTSIDE RECORDS SUMMARY | 2025-04-30 10:32 | XMS_ITS | Encounter Summary ---
Author Organization [employer] Address [address] [facility] 7t [place] [address] Care Team Providers Care Bung Dropper Name Role Phone Soo Han DDS Unavailable [phone] Encounter Details Date Type Department Care [...] Description 08/23/2025 2:00 PM EST Office Visit [facility] DENTAL [address] [place] [address] Katty Warner documented as of this encounter Visit Diagnoses Not on filedocumented in this encounter Care Teams Bung Dropper Relationship Specialty Start Date End Date Soo Han DDS 9 [place] [address] Dental Desk Maker 02/22/25 documented as of this encounter
--- OUTSIDE RECORDS SUMMARY | 2025-04-30 10:32 | XMS_ITS | Encounter Summary ---
Author Organization [employer] Address 75 [facility] 7t [place] [address] Care Team Providers Care Call Center Coordinator Name Role Phone Soo Han DDS Unavailable [phone] Encounter Details Date Type Department Care [...] [facility] DENTAL [address] [place] [address] Katty Warner documented as of this encounter Visit Diagnoses Not on filedocumented in this encounter Care Teams Call Center Coordinator Relationship Specialty Start Date End Date Soo Han DDS 9 [place] [address] Dental School Cafeteria Cook Head 02/22/25 documented as of this encounter
--- OUTSIDE RECORDS SUMMARY | 2025-04-30 10:32 | XMS_ITS | Encounter Summary ---
Author Organization [employer] Address [address] [facility] 7t [place] [address] Care Team Providers Care Air Operations Manager Name Role Phone Soo Han DDS Unavailable [phone] Encounter Details Date Type Department Care [...] PM EST Office Visit [facility] DENTAL [address] [place] [address] Katty Warner documented as of this encounter Visit Diagnoses Not on filedocumented in this encounter Care Teams Air Operations Manager Relationship Specialty Start Date End Date Soo Han DDS 9 [place] [address] Dental Executive Team Leader 02/22/25 documented as of this encounter
--- OUTSIDE RECORDS SUMMARY | 2025-04-30 10:32 | XMS_ITS | Encounter Summary ---
Author Organization [employer] Address 75 [facility] 7t [place] [address] Care Team Providers Care Sheep Herder Name Role Phone Soo Han DDS Unavailable [phone] Encounter Details Date Type Department Care [...] PM EST Office Visit [facility] DENTAL [address] [place] [address] Katty Warner documented as of this encounter Visit Diagnoses Not on filedocumented in this encounter Care Teams Sheep Herder Relationship Specialty Start Date End Date Soo Han DDS 9 [place] [address] Dental Train Gate Attendant 02/22/25 documented as of this encounter
--- OUTSIDE RECORDS SUMMARY | 2025-04-30 10:32 | XMS_ITS | Encounter Summary ---
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 It is not the complete legal health record.[facility]
--- OUTSIDE RECORDS SUMMARY | 2025-04-30 10:33 | XMS_ITS | Encounter Summary ---
Author Organization [facility] Address [address] [place] [address] Phone Care Team Providers Care Cytotechnologist/Cytology Supervisor Name Role Phone Katie Landeros ALMOND CUTTING MACHINE TENDER Unavailable [phone] Sylvie Eugene MD Unavailable [phone] Sylvie Eugene MD Primary Care Provider Encounter Details Date Type Department Care Team (Late st Contact Info) Description 04/01/2020 Procedure Pass [facility], [facility] Scan - [address] [id number] Social History Tobacco Use Types Packs/Day Years [...] on filedocumented in this encounter Care Teams Cytotechnologist/Cytology Supervisor Relationship Specialty Start Date End Date Sylvie Eugene MD [address] [place] [address] PCP - General 06/05/17 Katie Landeros NP [address] [place] [address] Historical LMR Provider 06/03/17 2 Sylvie Eugene MD [address] [place] [address] Historical LMR Provider 06/03/17 documented as of this encounter Additional Source Comments The information contained in this document represents components of the legal health record. It is not the complete legal health record.[facility]
--- OUTSIDE RECORDS SUMMARY | 2025-04-30 10:33 | XMS_ITS | Encounter Summary ---
Author Organization [facility] Address [address] [facility] [address] [place] [address] Phone Care Team Providers Care Installer Inspector Final Name Role Phone Katie Landeros NP Unavailable Sylvie Eugene MD Unavailable [phone] Sylvie Eugene MD Primary Care Provider Encounter Details Date Type Department Care Team (Late st Contact Info) Description 09/19/2020 Ancillary Orders Virtual Department 30 [place] [address] Sylvie Eugene MD [address] [place] [address] Abnormal mammogram Social History Tobacco Use Types [...] unspecified documented in this encounter Care Teams Installer Inspector Final Relationship Specialty Start Date End Date Sylvie Eugene MD [address] [place] [address] PCP - General 06/05/17 Katie Landeros NP 30 [place] [address] Historical LMR Provider 06/03/1708/23/ 2 Sylvie Eugene MD 30 [place] [address] Historical LMR Provider 06/03/17 documented as of this encounter Additional Source Comments The information contained in this document represents components of the legal health record. It is not the complete legal health record.[facility]
--- OUTSIDE RECORDS SUMMARY | 2025-04-30 10:33 | XMS_ITS | Encounter Summary ---
Author Organization [facility] Address [address] [facility] [address] [place] [address] Phone Care Team Providers Care Grinder And Plater Name Role Phone Katie Landeros NP Unavailable [phone] Sylvie Eugene MD Unavailable [phone] Sylvie Eugene MD Primary Care Provider Encounter Details Date Type Department Care Team (Late st Contact Info) Description 06/05/2017 Ancillary Orders [facility], [facility] 30 [place] [address] Sylvie Eugene MD [address] [place], [place] [id number] Diagnosis unknown Social History Tobacco Use Types [...] could obscure a lesion on mammography. POS: [id number] Narrative 07/20/2017 11:37 AM EST Screening Mammogram, [...] which couldobscure a lesion on mammography. POS: [id number] Sylvie Eugene MD IMG MG EXAMS Final R esult documented in this encounter Visit Diagnoses Diagnosis Diagnosis unknown Diagnosis unknown documented in this encounter Care Teams Grinder And Plater Relationship Specialty Start Date End Date Sylvie Eugene MD [address] [place] [address] PCP - General 06/05/17 Katie Landeros NP 30 [place] [address] Historical LMR Provider 06/03/1708/23/ 2 Sylvie Eugene MD [address] [place] [address] Historical LMR Provider 06/03/17 documented as of this encounter Additional Source Comments The information contained in this document represents components of the legal health record. It is not the complete legal health record.[facility]
--- OUTSIDE RECORDS SUMMARY | 2025-04-30 10:33 | XMS_ITS | Encounter Summary ---
Author Organization [facility] Address [address] [facility] [address] [place] [address] Phone Care Team Providers Care Cherry Picker Operator Name Role Phone Katie Landeros NP Unavailable Sylvie Eugene MD Unavailable [phone] Sylvie Eugene MD Primary Care Provider Encounter Details Date Type Department Care Team (Late st Contact Info) Description 05/09/2020 Ancillary Orders Virtual Department 30 [place] [address] Sylvie Eugene MD [address] [place] [address] Breast cancer screening by mammogram Social History [...] left breast ultrasound in case necessary. us Sylvei Eugene MD IMG MG EXAMS Final R esult documented in this encounter Visit Diagnoses Diagnosis Breast cancer screening by mammogram Breast cancer screening by mammogram documented in this encounter Care Teams Cherry Picker Operator Relationship Specialty Start Date End Date Sylvie Eugene MD [address] [address] PCP - General 06/05/17 Katie Landeros NP [address] [place] [address] Historical LMR Provider 06/03/17 2 Sylvie Eugene MD [address] [place] [address] Historical LMR Provider 06/03/17 documented as of this encounter Additional Source Comments The information contained in this document represents components of the legal health record. It is not the complete legal health record.[facility]
--- OUTSIDE RECORDS SUMMARY | 2025-04-30 10:33 | XMS_ITS | Encounter Summary ---
Author Organization [facility] Address [address] [facility] [address] [place] [address] Phone Care Team Providers Care Trading Specialist Name Role Phone Katie Landeros FENCE ERECTOR Unavailable [phone] Sylvie Eugene MD Unavailable [phone] Sylvie Eugene MD Primary Care Provider Encounter Details Date Type Department Care Team (Late st Contact Info) Description 09/19/2020 Procedure Pass [facility] - [address] [place] [address] Social History Tobacco Use Types Packs/Day Years [...] on filedocumented in this encounter Care Teams Trading Specialist Relationship Specialty Start Date End Date Sylvie Eugene MD [address] [place] [address] PCP - General 06/05/17 Katie Landeros NP [address] [place] [address] Historical LMR Provider 06/03/17 2 Sylvie Eugene MD [address] [place] [address] Historical LMR Provider 06/03/17 documented as of this encounter Additional Source Comments The information contained in this document represents components of the legal health record. It is not the complete legal health record.[facility]
--- OUTSIDE RECORDS SUMMARY | 2025-04-30 10:33 | XMS_ITS | Clinical Summary ---
Author Organization [facility] Address [address] [place] [address] Care Team Providers Care Exhibit Technician Name Role Phone Sylvie Eugene MD Primary Care Provider [phone] Allergies No known active allergies Medications traMADol [...] Zoster (Shingles) Vaccine (1 of 2) 2022 Influenza Vaccine 03/16/2025 COVID-19 Vaccine (1 - 2023- season) 2025 Insurance Care Teams Exhibit Technician Relationship Specialty Start Date End Date Sylvie Eugene MD [address] [place] [address] PCP - General 01/23/23
--- OUTSIDE RECORDS SUMMARY | 2025-04-30 10:33 | XMS_ITS | Encounter Summary ---
Author Organization [facility] Address [address] [facility] [address] [place] [address] Phone Care Team Providers Care Geriatrics Physician Name Role Phone Katie Landeros DAIRY EQUIPMENT INSTALLER Unavailable [phone] Sylvie Eugene MD Unavailable [phone] Sylvie Eugene MD Primary Care Provider Encounter Details Date Type Department Care Team (Late st Contact Info) Description 05/09/2020 Procedure Pass [facility], [address] [id number] Social History Tobacco Use Types Packs/Day Years [...] on filedocumented in this encounter Care Teams Geriatrics Physician Relationship Specialty Start Date End Date Sylvie Eugene MD [address] [place] [address] PCP - General 06/05/17 Katie Landeros NP [address] [place] [address] Historical LMR Provider 06/03/1708/23/ 2 Sylvie Eugene MD [address] [place] [address] Historical LMR Provider 06/03/17 documented as of this encounter Additional Source Comments The information contained in this document represents components of the legal health record. It is not the complete legal health record.[facility]
--- OUTSIDE RECORDS SUMMARY | 2025-04-30 10:33 | XMS_ITS | Encounter Summary ---
Author Organization [facility] Address [address] [facility] [address] [place] [address] Phone Care Team Providers Care Caustic Preparer Name Role Phone Katie Landeros ANIMAL STUNNER Unavailable [phone] Sylvie Eugene MD Unavailable [phone] Sylvie Eugene MD Primary Care Provider Encounter Details Date Type Department Care Team (Late st Contact Info) Description 04/02/2020 Procedure Pass [facility], [address] [address] Social History Tobacco Use Types Packs/Day Years [...] on filedocumented in this encounter Care Teams Caustic Preparer Relationship Specialty Start Date End Date Sylvie Eugene MD [address] [place] [address] PCP - General 06/05/17 Katie Landeros NP [address] [place] [address] Historical LMR Provider 06/03/1708/23/ 2 Sylvie Eugene MD [address] [place] [address] Historical LMR Provider 06/03/17 documented as of this encounter Additional Source Comments The information contained in this document represents components of the legal health record. It is not the complete legal health record.[facility]
--- OUTSIDE RECORDS SUMMARY | 2025-04-30 10:33 | XMS_ITS | Encounter Summary ---
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 Breast composition: The breast tissue is heterogeneously dense which mayobscure small masses. FINDINGS: There are scattered groups of amorphous and punctate calcificationsbilaterally, there has been no significant interval change dating back [id number]. No abnormal masses, suspicious calcifications, or other [...] unspecified documented in this encounter Care Teams Pediatric Oncologist Relationship Specialty Start Date End Date Sylvie Eugene MD [address] [place] [address] PCP - General 06/05/17 Sylvie Eugene MD Historical LMR Provider 06/03/17 documented as of this encounter Additional Source Comments The information contained in this document represents components of the legal health record. It is not the complete legal health record.[facility]
--- OUTSIDE RECORDS SUMMARY | 2025-04-30 10:33 | XMS_ITS | Encounter Summary ---
Author Organization [facility] Address [address] [facility] [address] [place] [address] Phone Care Team Providers Care Hop Separator Name Role Phone Katie Landeros NP Unavailable Sylvie Eugene MD Unavailable Sylvie Eugene MD Primary Care Provider Encounter Details Date Type Department Care Team (Late st Contact Info) Description 06/15/2019 Ancillary Orders Virtual Department 30 [place] [address] Sylvie Eugene MD [address] [place] [address] Breast screening Social History Tobacco Use Types [...] unspecified documented in this encounter Care Teams Hop Separator Relationship Specialty Start Date End Date Sylvie Eugene MD [address] [place] [address] PCP - General 06/05/17 Katie Landeros NP [address] [place] [address] Historical LMR Provider 06/03/17 2 Sylvie Eugene MD [address] [place] [address] Historical LMR Provider 06/03/17 documented as of this encounter Additional Source Comments The information contained in this document represents components of the legal health record. It is not the complete legal health record.[facility]
--- OUTSIDE RECORDS SUMMARY | 2025-04-30 10:33 | XMS_ITS | Encounter Summary ---
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 It is not the complete legal health record.[facility]
--- OUTSIDE RECORDS SUMMARY | 2025-04-30 10:33 | XMS_ITS | Encounter Summary ---
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 It is not the complete legal health record.[facility]
--- OUTSIDE RECORDS SUMMARY | 2025-04-30 10:33 | XMS_ITS | Encounter Summary ---
Author Organization [facility] Address [address] [place] [address] Phone Care Team Providers Care Proposal Engineer Name Role Phone Katie Landeros CHEMICAL LABORATORY TESTER Unavailable [phone] Sylvie Eugene MD Unavailable [phone] Sylvie Eugene MD Primary Care Provider Encounter Details Date Type Department Care Team (Late st Contact Info) Description 04/01/2020 Procedure Pass [facility], Ct Scan - [address] [id number] Social History Tobacco Use Types Packs/Day Years [...] on filedocumented in this encounter Care Teams Proposal Engineer Relationship Specialty Start Date End Date Sylvie Eugene MD [address] [place] [address] PCP - General 06/05/17 Katie Landeros NP [address] [place] [address] Historical LMR Provider 06/03/17 2 Sylvie Eugene MD [address] [place] [address] Historical LMR Provider 06/03/17 documented as of this encounter Additional Source Comments The information contained in this document represents components of the legal health record. It is not the complete legal health record.[facility]
--- OUTSIDE RECORDS SUMMARY | 2025-04-30 10:33 | XMS_ITS | Clinical Summary ---
Author Organization [facility] Address [address] [employer] [facility] [address] [place] [address] Phone Care Team Providers Care Inspector Plumbing Name Role Phone Sylvie Eugene MD Unavailable [phone] Sylvie Eugene MD Primary Care Provider Allergies [...] Active ferrous sulfate 325 mg (65 mg [place] iron) EC tablet Take 325 mg by [...] malignant screening-i.e. mammogram, Pap smear. -Follow-up at [facility] stroke clinic in 1 to 2 months for further evaluation of stroke in young person. If MRI does not reveal acute stroke reconsult tele-neurology for further recommendations. 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 PAP SMEAR (THIN PREP) CE: SPECIMEN ADEQUACY: Satisfactory for evaluation; transformation zone absent/insufficient. INTERPRETATION: EPITHELIAL CELL ABNORMALITY - SQUAMOUS. Low grade squamous intraepithelial lesion. This specimen was analyzed by the automated ThinPrep Imaging System ([employer].) and manually rescreened by a presser cotton ginning and/or pathologist. Electronically Signed Out By: MD [...] by real-time polymerase chain reaction (PCR) at [facility] [place], [address] [place] [address] using the FDA-approved Rewalon Onclarity9 HPV Assay with extended genotyping. Uses of the assay in scenarios other than those approved by the FDA should be considered off-label use. The accuracy and precision of this test for all other off-label specimen sources has been verified in the Cytopathology Laboratory of the [facility] [place] and has not been cleared or approved [...] : 1970 (Age: 54) Sex: F Institution: [facility] Location: [facility] Date of Collection: 07/25/2024 Date of Reported: 07/27/2024 12:54 Results to: Norman Gordon MD, BS Norman Gordon MD CYTOLOGY ORDERABLES Edited Re sult - Final SEE NARRATIVE * (ABNORMAL) Lipid panel (04/02/2020 3:23 AM EDT) HDL 67 mg/dL [facility] Comment: Interpretation <40 mg/dL: Low HDL cholesterol (major risk factor for CHD) Greater than or equal to 60 mg/dL: High HDL cholesterol ( negative risk factor for CHD) HDL - cholesterol is affected by a number of factors, e.g. smoking, excerise, hormones, sex and age. CHOLESTEROL 204 0 - 240 mg/dL [facility] TRIGLYCERIDES 131 30 - 160 mg/dL [facility] LDL 111 50 - 129 mg/dL [facility] Comment: LDL levels in terms of risk for coronary heart disease: <100 mg/dL: Optimal 100-129 mg/dL: Near or above optimal 130-159 mg/dL: Borderline high 160-189 mg/dL: High >190 mg/dL: Very High CARDIAC RISK RATIO 3.0(L) 3.3 - 4.4 C [facility] 04/02/2020 3:23 AM EDT 04/02/2020 3:32 AM EDT us Garett Romo MD LAB BLOOD ORDERABLES Fin al Result [address] [address] from Last 3 Months or Most Recently Relevant to Health Maintenance [facility] Advance Directives For more information, please contact: [phone] (9AM - 5PM [place], Wednesday-Wednesday) * Full Code (Confirmed) (Latest Code Status on File) Date Activated Date Inactivated Comments 04/02/2020 5:37 AM Question Answer Comments Code Status Confirmed With: Patient Code Status Communicated To: Inpatient Attending Care Teams Inspector Plumbing Relationship Specialty Start Date End Date Sylvie Eugene MD [address] [place] [address] PCP - General 06/05/17 Sylvie Eugene MD Historical LMR Provider 06/03/17 Additional Source Comments The information contained in this document represents components of the legal health record. It is not the complete legal health record.[facility]
--- OUTSIDE RECORDS SUMMARY | 2025-04-30 10:33 | XMS_ITS | Clinical Summary ---
Author Organization [employer] Address [address] [place] [address] 7t [place] [address] Care Team Providers Care Automobile Body Worker Name Role Phone Soo Han DDS Unavailable [phone] Allergies No known active allergies Medications [...] Replace Required Details, Route to Pharmacy Electronically, [facility], 158, cm, 01/05... 2 Active Encounters Date Type Department Care Team Description 03/14/2025 3:00 PM EDT Office Visit [facility] DENTAL [address] [place] [address] Soo Han DDS 03/08/2025 Travel 02/28/2025 3:00 PM EDT Office Visit [facility] D[facility] [address] [place] [address] Soo Han DDS 02/28/2025 Travel 02/27/2025 Travel 02/14/2025 2:00 PM EDT Office Visit [facility] DENT[facility] [address] [place] [address] Soo Han DDS 02/08/2025 3:00 PM EDT Office Visit [facility] D[facility] [address] [place] [address] Katty Warner Encounter for dental examination (Primary [...] Description 08/23/2025 2:00 PM EST Office Visit [facility] D[facility] [address] [place] [address] Katty Warner Health Maintenance Due Date Last [...] Most Recently Relevant to Health Maintenance Insurance [facility] [employer] [employer] Care Teams Automobile Body Worker Relationship Specialty Start Date End Date Soo Han DDS 9 [place] [address] Dental Director Of Casework 02/22/25
== END 2025-04-30 10:13 | disposition home or self-care (01) ==
LOC: HO.HMGAL 09:02
PROVIDERS: PCP Family Medicine; Visit Provider Registered Nurse Emergency
DX: J30.89 Other allergic rhinitis (principal)
CPT/HCPCS: 95117; 95165

== ENCOUNTER 2025-05-09 09:26 | Outpatient (AMB) | payer OTHER, SELFPAY ==
--- OUTSIDE RECORDS SUMMARY | 2025-05-09 11:14 | XMS_ITS | Encounter Summary ---
Author Organization [employer] Address 75 [facility] 7t [place] [address] Care Team Providers Care Quilting Supervisor Name Role Phone Soo Han DDS Unavailable [phone] Encounter Details Date Type Department Care [...] Description 08/23/2025 2:00 PM EST [facility] D[facility] [address] [place] [address] Katty Warner documented as of this encounter Visit Diagnoses Not on filedocumented in this encounter Care Teams Quilting Supervisor Relationship Specialty Start Date End Date Soo Han DDS 9 [place] [address] Dental Histologic Aide 02/22/25 documented as of this encounter
--- OUTSIDE RECORDS SUMMARY | 2025-05-09 11:14 | XMS_ITS | Encounter Summary ---
Author Organization [employer] Address 75 [facility] 7t [place] [address] Care Team Providers Care Bobbin Marker Name Role Phone Soo Han DDS Unavailable [phone] Encounter Details Date Type Department Care [...] Office Visit [facility] DENTAL [address] [place] [address] Katty Warner documented as of this encounter Visit Diagnoses Not on filedocumented in this encounter Care Teams Bobbin Marker Relationship Specialty Start Date End Date Soo Han DDS 9 [place] [address] Dental Assistant Store Manager Operations 02/22/25 documented as of this encounter
--- OUTSIDE RECORDS SUMMARY | 2025-05-09 11:14 | XMS_ITS | Encounter Summary ---
Author Organization [employer] Address 75 [facility] 7t [place] [address] Care Team Providers Care Parts Administrator Name Role Phone Soo Han DDS Unavailable [phone] Encounter Details Date Type Department Care [...] PM EST Office Visit [facility] DENTAL [address] [place] [address] Katty Warner documented as of this encounter Visit Diagnoses Not on filedocumented in this encounter Care Teams Parts Administrator Relationship Specialty Start Date End Date Soo Han DDS 9 [place] [address] Dental Escort Blind 02/22/25 documented as of this encounter
--- OUTSIDE RECORDS SUMMARY | 2025-05-09 11:14 | XMS_ITS | Clinical Summary ---
Author Organization [employer] Address [address] [place] [address] 7t [place] [address] Care Team Providers Care County Administrator Name Role Phone Soo Han DDS Unavailable [phone] Allergies No known active allergies Medications [...] Replace Required Details, Route to Pharmacy Electronically, [facility], 158, cm, 01/05... 2 Active Encounters Date Type Department Care Team Description 03/14/2025 3:00 PM EDT Office Visit [facility] DENTAL [address] [place] [address] Soo Han DDS 03/08/2025 Travel 02/28/2025 3:00 PM EDT Office Visit [facility] DENTAL [address] [place] [address] Soo Han DDS 02/28/2025 Travel 02/27/2025 Travel 02/14/2025 2:00 PM EDT Office Visit [facility] DENTAL [address] [place] [address] Soo Han DDS 02/08/2025 3:00 PM EDT Office Visit [facility] DENTAL [address] [place] [address] Katty Wanrer Encounter for dental examination (Primary Dx); Accretions [...] Description 08/23/2025 2:00 PM EST Office Visit [facility] DENT[facility] [address] [place] [address] Katty Warner Health Maintenance Due Date Last [...] topic Meningococcal Vaccine Aged Out No marycarmen go eligible based on patient's age to complete [...] Most Recently Relevant to Health Maintenance Insurance [facility] [employer] Care Teams County Administrator Relationship Specialty Start Date End Date Soo Han DDS 9 [place] [address] Dental Solar Designer/Installer 02/22/25
--- OUTSIDE RECORDS SUMMARY | 2025-05-09 11:14 | XMS_ITS | Encounter Summary ---
Author Organization [employer] Address 75 [facility] 7t [place] [address] Care Team Providers Care Ruby Software Developer Name Role Phone Soo Han DDS Unavailable [phone] Encounter Details Date Type Department Care [...] [facility] DENTAL [address] [place] [address] Katty Warner documented as of this encounter Visit Diagnoses Not on filedocumented in this encounter Care Teams Ruby Software Developer Relationship Specialty Start Date End Date Soo Han DDS 9 [place] [address] Dental Security Sergeant 02/22/25 documented as of this encounter
--- OUTSIDE RECORDS SUMMARY | 2025-05-09 11:14 | XMS_ITS | Encounter Summary ---
Author Organization [employer] Address 75 [facility] 7t [place] [address] Care Team Providers Care Tube Builder Airplane Name Role Phone Soo Han DDS Unavailable [phone] Encounter Details Date Type Department Care [...] Description 08/23/2025 2:00 PM EST Office Visit [facility] DENTAL [address] [place] [address] Katty Warner documented as of this encounter Visit Diagnoses Not on filedocumented in this encounter Care Teams Tube Builder Airplane Relationship Specialty Start Date End Date Soo Han DDS 9 [place] [address] Dental Supervisor Television Chassis Repair 02/22/25 documented as of this encounter
== END 2025-05-09 09:27 | disposition home or self-care (01) ==
LOC: HO.HMGAL 09:26
PROVIDERS: PCP Family Medicine; Visit Provider Registered Nurse Emergency
DX: J30.89 Other allergic rhinitis (principal)
CPT/HCPCS: 95117; 95165

== ENCOUNTER 2025-05-21 09:24 | Outpatient (AMB) | payer OTHER, SELFPAY ==
--- OUTSIDE RECORDS SUMMARY | 2025-05-21 10:37 | XMS_ITS | Clinical Summary ---
Author Organization [facility] Address [address] [facility] [address] [place] [address] Phone Care Team Providers Care Complaint Investigations Officer Name Role Phone Sylvie Eugene MD Unavailable [phone] Sylvie Eugene MD Primary Care Provider Allergies [...] Active ferrous sulfate 325 mg (65 mg [place] iron) EC tablet Take 325 mg by [...] - 04/06/2025 11:59 PM EDT Hospital Encounter [facility] [address] [place] [address] Sylvie Eugene MD Discharge Disposition: Home or Self Care 10/04/2024 Procedure Pass [facility] [address] [place] [address] from Last 3 Months Family History Medical [...] 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 PAP SMEAR (THIN PREP) CE: SPECIMEN ADEQUACY: Satisfactory for evaluation; transformation zone absent/insufficient. INTERPRETATION: EPITHELIAL CELL ABNORMALITY - SQUAMOUS. Low grade squamous intraepithelial lesion. This specimen was analyzed by the automated ThinPrep Imaging System ([employer].) and manually rescreened by a professional nurse and/or pathologist. Electronically Signed Out By: MD [...] by real-time polymerase chain reaction (PCR) at [facility], [address] [place] [address] using the FDA-approved Taplet Onclarity9 HPV Assay with extended genotyping. Uses of the assay in scenarios other than those approved by the FDA should be considered off-label use. The accuracy and precision of this test for all other off-label specimen sources has been verified in the Cytopathology Laboratory of the [facility] and has not been cleared or [...] : 1970 (Age: 54) Sex: F Institution: [facility] Location: [facility] Date of Collection: 07/25/2024 Date of Reported: 07/27/2024 12:54 Results to: Norman Gordon MD, BS Norman Gordon MD CYTOLOGY ORDERABLES Edited Re sult - Final SEE NARRATIVE * (ABNORMAL) Lipid panel (04/02/2020 3:23 AM EDT) HDL 67 mg/dL [facility] Comment: Interpretation <40 mg/dL: Low HDL cholesterol (major risk factor for CHD) Greater than or equal to 60 mg/dL: High HDL cholesterol ( negative risk factor for CHD) HDL - cholesterol is affected by a number of factors, e.g. smoking, excerise, hormones, sex and age. CHOLESTEROL 204 0 - 240 mg/dL [facility] TRIGLYCERIDES 131 30 - 160 mg/dL [facility] LDL 111 50 - 129 mg/dL [facility] Comment: LDL levels in terms of risk for coronary heart disease: <100 mg/dL: Optimal 100-129 mg/dL: Near or above optimal 130-159 mg/dL: Borderline high 160-189 mg/dL: High >190 mg/dL: Very High CARDIAC RISK RATIO 3.0(L) 3.3 - 4.4 C [facility] 04/02/2020 3:23 AM EDT 04/02/2020 3:32 AM EDT us Garett Romo MD LAB BLOOD ORDERABLES Fin al Result [address] [address] from Last 3 Months or Most Recently Relevant to Health Maintenance Insurance [facility] Advance Directives For more information, please contact: [phone] (9AM - 5PM [place], Wednesday-Wednesday) * Full Code (Confirmed) (Latest Code Status on File) Date Activated Date Inactivated Comments 04/02/2020 5:37 AM Question Answer Comments Code Status Confirmed With: Patient Code Status Communicated To: Inpatient Attending Care Teams Complaint Investigations Officer Relationship Specialty Start Date End Date Sylvie Eugene MD [address] [place] [address] PCP - General 06/05/17 Sylvie Eugene MD Historical LMR Provider 06/03/17 Additional Source Comments The information contained in this document represents components of the legal health record. It is not the complete legal health record.[facility]
--- OUTSIDE RECORDS SUMMARY | 2025-05-21 10:37 | XMS_ITS | Encounter Summary ---
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 It is not the complete legal health record.[facility]
--- OUTSIDE RECORDS SUMMARY | 2025-05-21 10:37 | XMS_ITS | Encounter Summary ---
Author Organization [facility] Address [address] [employer] [facility] [address] [place] [address] Phone Care Team Providers Care Senior Devops Engineer Name Role Phone Katie Landeros MANAGER FIRE Unavailable [phone] Sylvie Eugene MD Unavailable [phone] Sylvie Eugene MD Primary Care Provider Encounter Details Date Type Department Care Team (Late st Contact Info) Description 07/21/2021 Procedure Pass [facility], [address] [id number] Social History Tobacco Use Types Packs/Day Years [...] on filedocumented in this encounter Care Teams Senior Devops Engineer Relationship Specialty Start Date End Date Sylvie Eugene MD [address] [place] [address] PCP - General 06/05/17 Katie Landeros NP [address] [place] [address] Historical LMR Provider 06/03/17 2 Sylvie Eugene MD [address] [place] [address] Historical LMR Provider 06/03/17 documented as of this encounter Additional Source Comments The information contained in this document represents components of the legal health record. It is not the complete legal health record.[facility]
--- OUTSIDE RECORDS SUMMARY | 2025-05-21 10:37 | XMS_ITS | Encounter Summary ---
Author Organization [facility] Address [address] [employer] [place] [facility] [address] [place] [address] Phone Care Team Providers Care Senior Sales Associate Name Role Phone Katie Landeros WEAVING SUPERVISOR Unavailable [phone] Sylvie Eugene MD Unavailable [phone] Sylvie Eugene MD Primary Care Provider Encounter Details Date Type Department Care Team (Late st Contact Info) Description 05/09/2020 Procedure Pass [facility], [address] [id number] Social History Tobacco Use Types Packs/Day Years [...] filedocumented in this encounter Care Teams Senior Sales Associate Relationship Specialty Start Date End Date Sylvie Eugene MD [address] [place] [address] PCP - General 06/05/17 Katie Landeros NP [address] [place] [address] Historical LMR Provider 06/03/1708/23/ 2 Sylvie Eugene MD [address] [place] [address] Historical LMR Provider 06/03/17 documented as of this encounter Additional Source Comments The information contained in this document represents components of the legal health record. It is not the complete legal health record.[facility]
--- OUTSIDE RECORDS SUMMARY | 2025-05-21 10:37 | XMS_ITS | Encounter Summary ---
Author Organization [facility] Address [address] [employer] [facility] [address] [place] [address] Phone Care Team Providers Care Discharge Planner Name Role Phone Katie Landeros CHIEF HOSPITAL ADMINISTRATOR Unavailable [phone] Sylvie Eugene MD Unavailable [phone] Sylvie Eugene MD Primary Care Provider Encounter Details Date Type Department Care Team (Late st Contact Info) Description 09/19/2020 Procedure Pass [facility] - [address] [place] [address] Social History Tobacco Use Types Packs/Day Years [...] on filedocumented in this encounter Care Teams Discharge Planner Relationship Specialty Start Date End Date Sylvie Eugene MD [address] [place] [address] PCP - General 06/05/17 Katie Landeros NP [address] [place] [address] Historical LMR Provider 06/03/17 2 Sylvie Eugene MD [address] [place] [address] Historical LMR Provider 06/03/17 documented as of this encounter Additional Source Comments The information contained in this document represents components of the legal health record. It is not the complete legal health record.[facility]
--- OUTSIDE RECORDS SUMMARY | 2025-05-21 10:37 | XMS_ITS | Encounter Summary ---
Author Organization [employer] Address [address] [facility] 7t [place] [address] Care Team Providers Care Political Worker Name Role Phone Soo Han DDS Unavailable [phone] Encounter Details Date Type Department Care [...] Description 08/23/2025 2:00 PM EST Office Visit [facility] DENTAL [address] [place] [address] Katty Warner documented as of this encounter Visit Diagnoses Not on filedocumented in this encounter Care Teams Political Worker Relationship Specialty Start Date End Date Soo Han DDS [address] [place] [address] Dental Golf Course Keeper 02/22/25 documented as of this encounter
--- OUTSIDE RECORDS SUMMARY | 2025-05-21 10:37 | XMS_ITS | Encounter Summary ---
Author Organization [employer] Address 75 [facility] 7t [place] [address] Care Team Providers Care Animal Stunner Name Role Phone Soo Han DDS Unavailable [phone] Encounter Details Date Type Department Care [...] 2:00 PM EST Office Visit [facility] DENTAL [address] [place] [address] Katty Warner documented as of this encounter Visit Diagnoses Not on filedocumented in this encounter Care Teams Animal Stunner Relationship Specialty Start Date End Date Soo Han DDS 9 [place] [address] Dental Assistant Hairstylist 02/22/25 documented as of this encounter
--- OUTSIDE RECORDS SUMMARY | 2025-05-21 10:37 | XMS_ITS | Encounter Summary ---
Author Organization [facility] Address [address] [employer] [facility] [address] [place] [address] Phone Care Team Providers Care Forging Machine Operator Name Role Phone Katie Landeros NP Unavailable Sylvie Eugene MD Unavailable [phone] Sylvie Eugene MD Primary Care Provider Encounter Details Date Type Department Care Team (Late st Contact Info) Description 09/19/2020 Ancillary Orders Virtual Department [address] [place] [address] Sylvie Eugene MD [address] [place] [address] Abnormal mammogram Social History Tobacco Use Types [...] unspecified documented in this encounter Care Teams Forging Machine Operator Relationship Specialty Start Date End Date Sylvie Eugene MD [address] [place] [address] PCP - General 06/05/17 Katie Landeros NP [address] [place] [address] Historical LMR Provider 06/03/1708/23/ 2 Sylvie Eugene MD [address] [place] [address] Historical LMR Provider 06/03/17 documented as of this encounter Additional Source Comments The information contained in this document represents components of the legal health record. It is not the complete legal health record.[facility]
--- OUTSIDE RECORDS SUMMARY | 2025-05-21 10:37 | XMS_ITS | Encounter Summary ---
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 Breast composition: The breast tissue is heterogeneously dense which mayobscure small masses. FINDINGS: There are scattered groups of amorphous and punctate calcificationsbilaterally, there has been no significant interval change dating back [id number]. No abnormal masses, suspicious calcifications, or other [...] unspecified documented in this encounter Care Teams Field Nurse Case Manager Relationship Specialty Start Date End Date Sylvie Eugene MD [address] [place] [address] PCP - General 06/05/17 Sylvie Eugene MD Historical LMR Provider 06/03/17 documented as of this encounter Additional Source Comments The information contained in this document represents components of the legal health record. It is not the complete legal health record.[facility]
--- OUTSIDE RECORDS SUMMARY | 2025-05-21 10:37 | XMS_ITS | Clinical Summary ---
Author Organization [facility] Address [address] [place] [address] Care Team Providers Care Telephone Switchboard Operator Name Role Phone Sylvie Eugene MD Primary Care Provider [phone] Allergies No known active allergies Medications traMADol [...] - 2023- season) 2025 Insurance Care Teams Telephone Switchboard Operator Relationship Specialty Start Date End Date Sylvie Eugene MD [address] [place] [address] PCP - General 01/23/23
--- OUTSIDE RECORDS SUMMARY | 2025-05-21 10:37 | XMS_ITS | Encounter Summary ---
Author Organization [facility] Address [address] [place] [address] Phone Care Team Providers Care Replenishment Analyst Name Role Phone Katie Landeros BROADBAND TECHNICIAN Unavailable [phone] Sylvie Eugnee MD Unavailable [phone] Sylvie Eugene MD Primary Care Provider Encounter Details Date Type Department Care Team (Late st Contact Info) Description 04/01/2020 Procedure Pass [facility], Ct Scan - [address] [id number] Social History Tobacco Use Types Packs/Day Years [...] on filedocumented in this encounter Care Teams Replenishment Analyst Relationship Specialty Start Date End Date Sylvie Eugene MD [address] [place] [address] PCP - General 06/05/17 Katie Landeros NP [address] [place] [address] Historical LMR Provider 06/03/17 2 Sylvie Eugene MD [address] [place] [address] Historical LMR Provider 06/03/17 documented as of this encounter Additional Source Comments The information contained in this document represents components of the legal health record. It is not the complete legal health record.[facility]
--- OUTSIDE RECORDS SUMMARY | 2025-05-21 10:37 | XMS_ITS | Encounter Summary ---
Author Organization [facility] Address [address] [employer] [facility] [address] [place] [address] Phone Care Team Providers Care Lozenge Maker Helper Name Role Phone Katie Landeros NP Unavailable [phone] Sylvie Eugene MD Unavailable [phone] Sylvie Eugene MD Primary Care Provider Encounter Details Date Type Department Care Team (Late st Contact Info) Description 06/05/2017 Ancillary Orders [facility], [facility] [address] [place] [address] Sylvie Eugene MD [address] [place], [place] [id number] Diagnosis unknown Social History Tobacco Use Types [...] could obscure a lesion on mammography. POS: [id number] Narrative 07/20/2017 11:37 AM EST Screening Mammogram, [...] which couldobscure a lesion on mammography. POS: [id number] Sylvie Eugene MD IMG MG EXAMS Final R esult documented in this encounter Visit Diagnoses Diagnosis Diagnosis unknown Diagnosis unknown documented in this encounter Care Teams Lozenge Maker Helper Relationship Specialty Start Date End Date Sylvie Eugene MD [address] [place] [address] PCP - General 06/05/17 Katie Landeros NP [address] [place] [address] Historical LMR Provider 06/03/1708/23/ 2 Sylvie Eugene MD [address] [place] [address] Historical LMR Provider 06/03/17 documented as of this encounter Additional Source Comments The information contained in this document represents components of the legal health record. It is not the complete legal health record.[facility]
--- OUTSIDE RECORDS SUMMARY | 2025-05-21 10:37 | XMS_ITS | Encounter Summary ---
Author Organization [employer] Address [address] [facility] 7t [place] [address] Care Team Providers Care Ophthalmic Technician Apprentice Name Role Phone Soo Han DDS Unavailable [phone] Encounter Details Date Type Department Care [...] Office Visit [facility] DENTAL [address] [place] [address] Katty Warner documented as of this encounter Visit Diagnoses Not on filedocumented in this encounter Care Teams Ophthalmic Technician Apprentice Relationship Specialty Start Date End Date Soo Han DDS 9 [place] [address] Dental Animal Care Attendant 02/22/25 documented as of this encounter
--- OUTSIDE RECORDS SUMMARY | 2025-05-21 10:37 | XMS_ITS | Encounter Summary ---
Author Organization [employer] Address [address] [facility] 7t [place] [address] Care Team Providers Care Underwriting Consultant Name Role Phone Soo Han DDS Unavailable [phone] Encounter Details Date Type Department Care [...] Description 08/23/2025 2:00 PM EST Office Visit [facility] DENTAL [address] [place] [address] Katty Warner documented as of this encounter Visit Diagnoses Not on filedocumented in this encounter Care Teams Underwriting Consultant Relationship Specialty Start Date End Date Soo Han DDS 9 [place] [address] Dental Desulphurizer Operator 02/22/25 documented as of this encounter
--- OUTSIDE RECORDS SUMMARY | 2025-05-21 10:37 | XMS_ITS | Encounter Summary ---
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 It is not the complete legal health record.[facility]
--- OUTSIDE RECORDS SUMMARY | 2025-05-21 10:37 | XMS_ITS | Encounter Summary ---
Author Organization [facility] Address [address] [place] [address] Phone Care Team Providers Care Wet Process Assistant Head Miller Name Role Phone Katie Landeros RACE CAR DRIVER Unavailable [phone] Sylvie Eugene MD Unavailable [phone] Sylvie Eugene MD Primary Care Provider Encounter Details Date Type Department Care Team (Late st Contact Info) Description 04/01/2020 Procedure Pass [facility], Ct Scan - [address] [id number] Social History Tobacco Use Types Packs/Day Years [...] on filedocumented in this encounter Care Teams Wet Process Assistant Head Miller Relationship Specialty Start Date End Date Sylvie Eugene MD [address] [place] [address] PCP - General 06/05/17 Katie Landeros NP [address] [place] [address] Historical LMR Provider 06/03/17 2 Sylvie Eugene MD [address] [place] [address] Historical LMR Provider 06/03/17 documented as of this encounter Additional Source Comments The information contained in this document represents components of the legal health record. It is not the complete legal health record.[facility]
--- OUTSIDE RECORDS SUMMARY | 2025-05-21 10:37 | XMS_ITS | Encounter Summary ---
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 It is not the complete legal health record.[facility]
--- OUTSIDE RECORDS SUMMARY | 2025-05-21 10:37 | XMS_ITS | Encounter Summary ---
Author Organization [facility] Address [address] [employer] [facility] [address] [place] [address] Phone Care Team Providers Care Supervisor Forming And Tempering Name Role Phone Katie Landeros HAIRSPRING INSPECTOR Unavailable [phone] Sylvie Eugene MD Unavailable [phone] Sylvie Eugene MD Primary Care Provider Encounter Details Date Type Department Care Team (Late st Contact Info) Description 04/02/2020 Procedure Pass [facility], [address] [address] Social History Tobacco Use Types Packs/Day Years [...] on filedocumented in this encounter Care Teams Supervisor Forming And Tempering Relationship Specialty Start Date End Date Sylvie Eugene MD [address] [place] [address] PCP - General 06/05/17 Katie Landeros NP [address] [place] [address] Historical LMR Provider 06/03/1708/23/ 2 Sylvie Euegne MD [address] [place] [address] Historical LMR Provider 06/03/17 documented as of this encounter Additional Source Comments The information contained in this document represents components of the legal health record. It is not the complete legal health record.[facility]
--- OUTSIDE RECORDS SUMMARY | 2025-05-21 10:37 | XMS_ITS | Clinical Summary ---
Author Organization [employer] Address [address] [place] [address] 7t [place] [address] Care Team Providers Care Mold Checker Name Role Phone Soo Han DDS Unavailable [phone] Allergies No known active allergies Medications [...] Replace Required Details, Route to Pharmacy Electronically, [facility], 158, cm, 01/05... 2 Active Encounters Date Type Department Care Team Description 03/14/2025 3:00 PM EDT Office Visit [facility] DENTAL [address] [place] [address] Soo Han DDS 03/08/2025 Travel 02/28/2025 3:00 PM EDT Office Visit [facility] DENTAL [address] [place] [address] Soo Han DDS 02/28/2025 Travel 02/27/2025 Travel from Last 3 Months Social History [...] Description 08/23/2025 2:00 PM EST Office Visit [facility] DENTAL [address] [place] [address] Katty Warner Health Maintenance Due Date Last Done Comments CT Colonography 1972 Colonoscopy 1972 Colorectal Cancer Screening 1972 Depression Screening 1972 FIT DNA/Cologuard 1972 FIT 1972 FOBT 1972 HIV Screening 1972 SDOH Screening 1972 Sigmoidoscopy 1972 Disability Screening 1972 Alcohol/Substance Use Screening 1984 Tobacco Screening 1984 Hepatitis C Screening 1990 Hepatitis B Vaccines (1 of 3 - 19+ 3-dose series) 1991 Pap Smear 1993 Cervical Cancer Screening 2002 HPV/Cotest 2002 Pneumococcal Vaccine: 50+ Years (2 of 2 - PCV) 09/20/2018 09/20/2017 Zoster Vaccines (1 of 2) 2022 COVID-19 Vaccine ( - season) 2025 05/11/2022, 06/22/2021, 11/27/2020, Additional history exists Influenza Vaccine (#1) 2025 , 05/11/2022, 05/11/2022, Additional history exists Dental Oral Exam 08/11/2025 02/08/2025, 01/2024, 12/27/2023, Additional history exists Dental Prophylaxis 08/11/2025 02/08/2025, 1 08/21/2023, 12/27/2023, Additional history exists Dental X-Ray: Full Mouth 11/07/2025 11/06/2022, 050 12/2016 Mammogram 12/23/2025 12/24/2023, 12/14, 12/18/2022, Additional [...] SURF, ANTERIOR Routine 02/28/2025 3:00 PM EDT Full PROPHYLAXIS - ADULT Routine 06/26/2 025 3:00 PM EDT BITEWINGS - 4 RADIOGRAPHIC IMAGES Routine 02/08/2025 3:00 PM EDT PERIODIC ORAL EVALUATION - ESTABLISHED PATIENT Routine 02/08/2025 3:00 PM EDT INTRAORAL - COMPLETE SERIES OF RADIOGRAPHIC IMAGES Routine 11/06/2022 1:30 PM EDT from Last 3 Months or Most Recently Relevant to Health Maintenance Insurance Member Subscriber Plan / Payer (Ef fective 2023-Present) Name:Lenora Lewis Relation to Subscriber:Self Name:Lenora Lewis Payer ID:Not on file Type:Indemnity Address: [place] [phone] Care Teams Mold Checker Relationship Specialty Start Date End Date Soo Han DDS [address] [place] [address] Dental Research Laboratory Specialist 02/22/25
--- OUTSIDE RECORDS SUMMARY | 2025-05-21 10:37 | XMS_ITS | Encounter Summary ---
Author Organization [employer] Address [address] [facility] 7t [place] [address] Care Team Providers Care Meat Selector Name Role Phone Soo Han DDS Unavailable [phone] Encounter Details Date Type Department Care [...] Description 08/23/2025 2:00 PM EST Office Visit [facility] DENTAL [address] [place] [address] Katty Warner documented as of this encounter Visit Diagnoses Not on filedocumented in this encounter Care Teams Meat Selector Relationship Specialty Start Date End Date Soo Han DDS [address] [place] [address] Dental Immigration Guard 02/22/25 documented as of this encounter
--- OUTSIDE RECORDS SUMMARY | 2025-05-21 10:37 | XMS_ITS | Encounter Summary ---
Author Organization [facility] Address [address] [employer] [facility] [address] [place] [address] Phone Care Team Providers Care Title Curator Name Role Phone Katie Landeros NP Unavailable Sylvie Eugene MD Unavailable [phone] Sylvie Eugene MD Primary Care Provider Encounter Details Date Type Department Care Team (Late st Contact Info) Description 06/15/2019 Ancillary Orders Virtual Department [address] [place] [address] Sylvie Eugene MD [address] [place] [address] Breast screening Social History Tobacco Use Types [...] unspecified documented in this encounter Care Teams Title Curator Relationship Specialty Start Date End Date Sylvie Eugene MD [address] [place] [address] PCP - General 06/05/17 Katie Landeros NP [address] [place] [address] Historical LMR Provider 06/03/17 2 Sylvie Eugene MD [address] [place] [address] Historical LMR Provider 06/03/17 documented as of this encounter Additional Source Comments The information contained in this document represents components of the legal health record. It is not the complete legal health record.[facility]
--- OUTSIDE RECORDS SUMMARY | 2025-05-21 10:37 | XMS_ITS | Encounter Summary ---
Author Organization [facility] Address [address] [employer] [facility] [address] [place] [address] Phone Care Team Providers Care Foreign Languages Department Chair Name Role Phone Katie Landeros NP Unavailable [phone] Sylvie Eugene MD Unavailable [phone] Sylvie Eugene MD Primary Care Provider Encounter Details Date Type Department Care Team (Late st Contact Info) Description 05/09/2020 Ancillary Orders Virtual Department [address] [place] [address] Sylvie Eugene MD [address] [place] [address] Breast cancer screening by mammogram Social History [...] mammogram documented in this encounter Care Teams Foreign Languages Department Chair Relationship Specialty Start Date End Date Sylvie Eugene MD [address], [place] [address] PCP - General 06/05/17 Katie Landeros NP [address] [place] [address] Historical LMR Provider 06/03/17 2 Sylvie Eugene MD [address] [place] [address] Historical LMR Provider 06/03/17 documented as of this encounter Additional Source Comments The information contained in this document represents components of the legal health record. It is not the complete legal health record.[facility]
== END 2025-05-21 09:46 | disposition home or self-care (01) ==
LOC: HO.HMGAL 09:24
PROVIDERS: PCP Family Medicine; Visit Provider Registered Nurse Emergency
DX: J30.89 Other allergic rhinitis (principal)
CPT/HCPCS: 95117; 95165

== ENCOUNTER 2025-06-04 09:28 | Outpatient (AMB) | payer OTHER, SELFPAY ==
--- OUTSIDE RECORDS SUMMARY | 2025-06-04 10:34 | XMS_ITS | Encounter Summary ---
Author Organization [employer] Address [address] [facility] 7t [place] [address] Care Team Providers Care Emr Analyst Name Role Phone Soo Han DDS Unavailable [phone] Encounter Details Date Type Department Care [...] Description 08/23/2025 2:00 PM EST Office Visit [facility] DENTAL [address] [place] [address] Katty Warner documented as of this encounter Visit Diagnoses Not on filedocumented in this encounter Care Teams Emr Analyst Relationship Specialty Start Date End Date Soo Han DDS [address] [place] [address] Dental Hand Stoner 02/22/25 documented as of this encounter
--- OUTSIDE RECORDS SUMMARY | 2025-06-04 10:34 | XMS_ITS | Encounter Summary ---
Author Organization [employer] Address [address] [facility] 7t [place] [address] Care Team Providers Care Fire Tower Keeper Name Role Phone Soo Han DDS Unavailable [phone] Encounter Details Date Type Department Care [...] Description 08/23/2025 2:00 PM EST Office Visit [facility] DENTAL [address] [place] [address] Katty Warner documented as of this encounter Visit Diagnoses Not on filedocumented in this encounter Care Teams Fire Tower Keeper Relationship Specialty Start Date End Date Soo Han DDS [address] [place] [address] Dental Visual Effects Editor 02/22/25 documented as of this encounter
--- OUTSIDE RECORDS SUMMARY | 2025-06-04 10:34 | XMS_ITS | Clinical Summary ---
Author Organization [employer] Address [address] [place] [address] 7t [place] [address] Care Team Providers Care Day Care Home Mother Name Role Phone Soo Han DDS Unavailable [phone] Allergies No known active allergies Medications [...] Replace Required Details, Route to Pharmacy Electronically, [facility], 158, cm, 01/05... 2 Active Encounters Date Type Department Care Team Description 03/14/2025 3:00 PM EDT Office Visit [facility] DENTAL [address] [place] [address] Soo Han DDS 03/08/2025 Travel from Last 3 Months Social History [...] 2:00 PM EST Office Visit [facility] DENTAL [address] [place] [address] Katty Warner Health Maintenance Due Date Last [...] of 2) 2022 COVID-19 Vaccine (5 - 2024- season) 2025 05/11/2022, 06/22/2021, 11/27/2020, Additional history [...] MO METAL Routine 03/14/2025 3:00 PM EDT Full PROPHYLAXIS - ADULT Routine 025 3:00 PM EDT BITEWINGS - 4 RADIOGRAPHIC IMAGES Routine 02/08/2025 3:00 PM EDT PERIODIC ORAL EVALUATION - ESTABLISHED PATIENT Routine 02/08/2025 3:00 PM EDT INTRAORAL - COMPLETE SERIES OF RADIOGRAPHIC IMAGES Routine 11/06/2022 1:30 PM EDT from Last 3 Months or Most Recently Relevant to Health Maintenance Insurance [employer] Care Teams Day Care Home Mother Relationship Specialty Start Date End Date Soo Han DDS [address] [place] [address] Dental Referral And Information Aide 02/22/25
--- OUTSIDE RECORDS SUMMARY | 2025-06-04 10:34 | XMS_ITS | Clinical Summary ---
Author Organization [facility] Address [address] [place] [address] Care Team Providers Care Vice President Global Digital Marketing Name Role Phone Sylvie Eugene MD Primary Care Provider [phone] Allergies No known active allergies Medications traMADol [...] Influenza Vaccine 03/16/2025 COVID-19 Vaccine (1 - season) 2025 RSV Vaccine 50 years and old er and Patients (1 - 1-dose 75+ series) 2047 Insurance Care Teams Vice President Global Digital Marketing Relationship Specialty Start Date End Date Sylvie Eugene [place] [address] PCP - General 01/23/23
--- OUTSIDE RECORDS SUMMARY | 2025-06-04 10:34 | XMS_ITS | Encounter Summary ---
Author Organization [employer] Address [address] [facility] 7t [place] [address] Care Team Providers Care Sound Engineer Name Role Phone Soo Han DDS Unavailable [phone] Encounter Details Date Type Department Care [...] Description 08/23/2025 2:00 PM EST Office Visit [facility] DENTAL [address] [place] [address] Katty Warner documented as of this encounter Visit Diagnoses Not on filedocumented in this encounter Care Teams Sound Engineer Relationship Specialty Start Date End Date Soo Han DDS [address] [place] [address] Dental Sales Performance Manager 02/22/25 documented as of this encounter
--- OUTSIDE RECORDS SUMMARY | 2025-06-04 10:34 | XMS_ITS | Encounter Summary ---
Author Organization [employer] Address [address] [facility] 7t [place] [address] Care Team Providers Care Marketing Technology Coordinator Name Role Phone Soo Han DDS Unavailable [phone] Encounter Details Date Type Department Care [...] Description 08/23/2025 2:00 PM EST Office Visit [facility] DENTAL [address] [place] [address] Katty Warner documented as of this encounter Visit Diagnoses Not on filedocumented in this encounter Care Teams Marketing Technology Coordinator Relationship Specialty Start Date End Date Soo Han DDS [address] [place] [address] Bailiff Or Sheriff 02/22/25 documented as of this encounter
--- OUTSIDE RECORDS SUMMARY | 2025-06-04 10:34 | XMS_ITS | Encounter Summary ---
Author Organization [employer] Address [address] [facility] 7t [place] [address] Care Team Providers Care Scientific Software Developer Name Role Phone Soo Han DDS Unavailable [phone] Encounter Details Date Type Department Care [...] Description 08/23/2025 2:00 PM EST Office Visit [facility] DENTAL [address] [place] [address] Katty Warner documented as of this encounter Visit Diagnoses Not on filedocumented in this encounter Care Teams Scientific Software Developer Relationship Specialty Start Date End Date Soo Han DDS [address] [place] [address] Dental Financial Sales Manager 02/22/25 documented as of this encounter
== END 2025-06-04 09:30 | disposition home or self-care (01) ==
LOC: HO.HMGAL 09:28
PROVIDERS: PCP Family Medicine; Visit Provider Registered Nurse Emergency
DX: J30.89 Other allergic rhinitis (principal)
CPT/HCPCS: 95117; 95165

== ENCOUNTER 2025-06-18 11:39 | Outpatient (AMB) | payer OTHER, SELFPAY ==
--- OUTSIDE RECORDS SUMMARY | 2025-06-18 14:50 | XMS_ITS | Encounter Summary ---
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 Not on file documented as of this encounter Plan of Treatment Not on file documented as of this encounter Visit Diagnoses Not on filedocumented in this encounter Care Teams Beam Department Supervisor Relationship Specialty Start Date End Date Sylvie Eugene MD [address] [place] [address] [email or web address] PCP - General 06/05/17 Katie Landeros NP [address] [place] [address] Historical LMR Provider 06/03/17 2 Sylvie Eugene MD [address] [place] [address] [email or web address] Historical LMR Provider 06/03/17 documented as of this encounter Additional Source Comments The information contained in this document represents components of the legal health record. It is not the complete legal health record.[facility]
--- OUTSIDE RECORDS SUMMARY | 2025-06-18 14:50 | XMS_ITS | Encounter Summary ---
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 It is not the complete legal health record.[facility]
--- OUTSIDE RECORDS SUMMARY | 2025-06-18 14:51 | XMS_ITS | Encounter Summary ---
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 It is not the complete legal health record.[facility]
--- OUTSIDE RECORDS SUMMARY | 2025-06-18 14:51 | XMS_ITS | Encounter Summary ---
Author Organization [facility] Address [address] [facility] [address] [place] [address] Phone Care Team Providers Care Divorce Attorney Name Role Phone Katie Landeros NP Unavailable Sylvie Eugene MD Unavailable [phone] Sylvie Eugene MD Primary Care Provider Encounter Details Date Type Department Care Team (Late st Contact Info) Description 05/09/2020 Ancillary Orders Virtual Department [address] [place] [address] Sylvie Eugene MD [address] [place] [address] [email or web address] Breast cancer screening by mammogram Social History [...] mammogram documented in this encounter Care Teams Divorce Attorney Relationship Specialty Start Date End Date Sylvie Eugene MD [address] [place] [address] PCP - General 06/05/17 Katie Landeros NP [address] [place] [address] Historical LMR Provider 06/03/1708/23/ 2 Sylvie Eugene MD [address] [place] [address] Historical LMR Provider 06/03/17 documented as of this encounter Additional Source Comments The information contained in this document represents components of the legal health record. It is not the complete legal health record.[facility]
--- OUTSIDE RECORDS SUMMARY | 2025-06-18 14:51 | XMS_ITS | Encounter Summary ---
Author Organization [facility] Address [address] [facility] [address] [place] [address] Phone Care Team Providers Care Residential Treatment Specialist Name Role Phone Katie Landeros SUPERVISORY INVESTIGATIVE SPECIALIST Unavailable [phone] Sylvie Eugene MD Unavailable [phone] Sylvie Eugene MD Primary Care Provider Encounter Details Date Type Department Care Team (Late st Contact Info) Description 04/01/2020 Procedure Pass [facility], [facility] Scan - [address] [phone] Social History Tobacco Use Types Packs/Day Years [...] on filedocumented in this encounter Care Teams Residential Treatment Specialist Relationship Specialty Start Date End Date Sylvie Eugene MD [address] [place] [address] [email or web address] PCP - General 06/05/17 Katie Landeros NP [address] [place] [address] Historical LMR Provider 06/03/1708/23/ 2 Sylvie Eugene MD [address] [place] [address] [email or web address] Historical LMR Provider 06/03/17 documented as of this encounter Additional Source Comments The information contained in this document represents components of the legal health record. It is not the complete legal health record.[facility]
--- OUTSIDE RECORDS SUMMARY | 2025-06-18 14:51 | XMS_ITS | Encounter Summary ---
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 Breast composition: The breast tissue is heterogeneously dense which mayobscure small masses. FINDINGS: There are scattered groups of amorphous and punctate calcificationsbilaterally, there has been no significant interval change dating back [id number]. No abnormal masses, suspicious calcifications, or other significantfindings are identified mammographically in either breast. IMPRESSION: No mammographic evidence of malignancy in either breast. Annual screening mammography is recommended. BI-RADS 2 BENIGN The patient will be notified of the results and recommendations. Sylvie Eugene MD IMG MG EXAMS Final R esult documented in this encounter Visit Diagnoses Diagnosis Breast screening- Primary Breast screening, unspecified Breast screening Breast screening, unspecified documented in this encounter Care Teams Dealer Analyst Relationship Specialty Start Date End Date Sylvie Eugene MD [address] [place] [address] PCP - General 06/05/17 Sylvie Eugene MD [email or web address] Historical LMR Provider 06/03/17 documented as of this encounter Additional Source Comments The information contained in this document represents components of the legal health record. It is not the complete legal health record.[facility]
--- OUTSIDE RECORDS SUMMARY | 2025-06-18 14:51 | XMS_ITS | Encounter Summary ---
Author Organization [facility] Address [address] [facility] [address] [place] [address] Phone Care Team Providers Care Registration Manager Name Role Phone Katie Landeros APPLICATION TECHNICAL DESIGNER Unavailable [phone] Sylvie Eugene MD Unavailable [phone] Sylvie Eugene MD Primary Care Provider Encounter Details Date Type Department Care Team (Late st Contact Info) Description 09/19/2020 Procedure Pass [facility] - [address] [place] [address] Social History Tobacco Use Types Packs/Day Years [...] on filedocumented in this encounter Care Teams Registration Manager Relationship Specialty Start Date End Date Sylvie Eugene MD [address] [place] [address] [email or web address] PCP - General 06/05/17 Katie Landeros NP [address] [place] [address] Historical LMR Provider 06/03/1708/23/ 2 Sylvie Eugene MD [address] [place] [address] [email or web address] Historical LMR Provider 06/03/17 documented as of this encounter Additional Source Comments The information contained in this document represents components of the legal health record. It is not the complete legal health record.[facility]
--- OUTSIDE RECORDS SUMMARY | 2025-06-18 14:51 | XMS_ITS | Encounter Summary ---
Author Organization [facility] Address [address] [facility] [address] [place] [address] Phone Care Team Providers Care Quill Picking Machine Operator Name Role Phone Katie Landeros NP Unavailable [phone] Sylvie Eugene MD Unavailable [phone] Sylvie Eugene MD Primary Care Provider Encounter Details Date Type Department Care Team (Late st Contact Info) Description 09/19/2020 Ancillary Orders Virtual Department [address] [place] [address] Sylvie Eugene MD [address] [place] [address] [email or web address] Abnormal mammogram Social History Tobacco Use Types [...] unspecified documented in this encounter Care Teams Quill Picking Machine Operator Relationship Specialty Start Date End Date Sylvie Eugene MD [address] [place] [address] PCP - General 06/05/17 Katie Landeros NP [address] [place] [address] Historical LMR Provider 06/03/17 2 Sylvie Eugene MD [address] [place] [address] Historical LMR Provider 06/03/17 documented as of this encounter Additional Source Comments The information contained in this document represents components of the legal health record. It is not the complete legal health record.[facility]
--- OUTSIDE RECORDS SUMMARY | 2025-06-18 14:51 | XMS_ITS | Encounter Summary ---
Author Organization [employer] Address [address] [facility] 7t [place] [address] Care Team Providers Care Orthotic Fitter Name Role Phone Soo Han DDS Unavailable [phone] Encounter Details Date Type Department Care [...] Description 08/23/2025 2:00 PM EST Office Visit [facility] D[facility] [address] [place] [address] Katty Warner documented as of this encounter Visit Diagnoses Not on filedocumented in this encounter Care Teams Orthotic Fitter Relationship Specialty Start Date End Date Soo Han DDS [address] [place] [address] Dental Order Fulfillment Specialist 02/22/25 documented as of this encounter
--- OUTSIDE RECORDS SUMMARY | 2025-06-18 14:51 | XMS_ITS | Encounter Summary ---
Author Organization [employer] Address [address] [facility] 7t [place] [address] Care Team Providers Care Script Writer Name Role Phone Soo Han DDS Unavailable [phone] Encounter Details Date Type Department Care [...] PM EST Office Visit [facility] DENTAL [address] [place] [address] Katty Warner documented as of this encounter Visit Diagnoses Not on filedocumented in this encounter Care Teams Script Writer Relationship Specialty Start Date End Date Soo Han DDS [address] [place] [address] Dental Director Of Special Services 02/22/25 documented as of this encounter
--- OUTSIDE RECORDS SUMMARY | 2025-06-18 14:51 | XMS_ITS | Encounter Summary ---
Author Organization [facility] Address [address] [facility] [address] [place] [address] Phone Care Team Providers Care Silk Screen Cutter Name Role Phone Katie Landeros VEHICLE DELIVERY WORKER Unavailable [phone] Sylvie Eugene MD Unavailable [phone] Sylvie Eugene MD Primary Care Provider Encounter Details Date Type Department Care Team (Late st Contact Info) Description 04/01/2020 Procedure Pass [facility], Ct Scan - [address] [phone] Social History Tobacco Use Types Packs/Day Years [...] on filedocumented in this encounter Care Teams Silk Screen Cutter Relationship Specialty Start Date End Date Sylvie Eugene MD [address] [place] [address] [email or web address] PCP - General 06/05/17 Katie Landeros NP [address] [place] [address] Historical LMR Provider 06/03/1708/23/ 2 Sylvie Eugene MD [address] [place] [address] [email or web address] Historical LMR Provider 06/03/17 documented as of this encounter Additional Source Comments The information contained in this document represents components of the legal health record. It is not the complete legal health record.[facility]
--- OUTSIDE RECORDS SUMMARY | 2025-06-18 14:51 | XMS_ITS | Encounter Summary ---
Author Organization [facility] Address [address] [facility] [address] [place] [address] Phone Care Team Providers Care Dumb Waiter Operator Name Role Phone Katie Landeros SYSTEMS MGR Unavailable [phone] Sylvie Eugene MD Unavailable [phone] Sylvie Eugene MD Primary Care Provider Encounter Details Date Type Department Care Team (Late st Contact Info) Description 05/09/2020 Procedure Pass [facility], [address] [phone] Social History Tobacco Use Types Packs/Day Years [...] on filedocumented in this encounter Care Teams Dumb Waiter Operator Relationship Specialty Start Date End Date Sylvie Eugene MD [address] [place] [address] [email or web address] PCP - General 06/05/17 Katie Landeros NP [address] [place] [address] Historical LMR Provider 06/03/1708/23/ 2 Sylvie Eugene MD [address] [place] [address] [email or web address] Historical LMR Provider 06/03/17 documented as of this encounter Additional Source Comments The information contained in this document represents components of the legal health record. It is not the complete legal health record.[facility]
--- OUTSIDE RECORDS SUMMARY | 2025-06-18 14:51 | XMS_ITS | Encounter Summary ---
Author Organization [facility] Address [facility] [address] [place] [address] Phone Care Team Providers Care Geriatric Social Worker Name Role Phone Katie Landeros NP Unavailable [phone] Sylvie Eugene MD Unavailable [phone] Sylvie Eugene MD Primary Care Provider Encounter Details Date Type Department Care Team (Late st Contact Info) Description 06/05/2017 Ancillary Orders [facility], [facility] [address] [place] [address] Sylvie Eugene MD [address] [place], [place] [phone] [email or web address] Diagnosis unknown Social History Tobacco Use Types [...] could obscure a lesion on mammography. POS: [id number] Narrative 07/20/2017 11:37 AM EST Screening Mammogram, [...] which couldobscure a lesion on mammography. POS: [id number] Sylvie Eugene MD IMG MG EXAMS Final R esult documented in this encounter Visit Diagnoses Diagnosis Diagnosis unknown Diagnosis unknown documented in this encounter Care Teams Geriatric Social Worker Relationship Specialty Start Date End Date Sylvie Eugene MD [address] [place] [address] PCP - General 06/05/17 Katie Landeros NP [address] [place] [address] Historical LMR Provider 06/03/17 2 Sylvie Eugene MD [address] [place] [address] [email or web address] Historical LMR Provider 06/03/17 documented as of this encounter Additional Source Comments The information contained in this document represents components of the legal health record. It is not the complete legal health record.[facility]
--- OUTSIDE RECORDS SUMMARY | 2025-06-18 14:51 | XMS_ITS | Encounter Summary ---
Author Organization [employer] Address [address] [facility] 7t [place] [address] Care Team Providers Care Internet Programmer Name Role Phone Soo Han DDS Unavailable [phone] Encounter Details Date Type Department Care [...] 08/23/2025 2:00 PM EST Office [facility] DENTAL [address] [place] [address] Katty Warner documented as of this encounter Visit Diagnoses Not on filedocumented in this encounter Care Teams Internet Programmer Relationship Specialty Start Date End Date Soo Han DDS [address] [place] [address] Dental Stain Wiper 02/22/25 documented as of this encounter
--- OUTSIDE RECORDS SUMMARY | 2025-06-18 14:51 | XMS_ITS | Encounter Summary ---
Author Organization [employer] Address [address] [facility] 7t [place] [address] Care Team Providers Care Icu Registered Nurse Name Role Phone Soo Han DDS Unavailable [phone] Encounter Details Date Type Department Care [...] 08/23/2025 2:00 PM EST Office [facility] DENTAL [address] [place] [address] Katty Warner documented as of this encounter Visit Diagnoses Not on filedocumented in this encounter Care Teams Icu Registered Nurse Relationship Specialty Start Date End Date Soo Han DDS [address] [place] [address] Dental Fisherman Helper 02/22/25 documented as of this encounter
--- OUTSIDE RECORDS SUMMARY | 2025-06-18 14:51 | XMS_ITS | Clinical Summary ---
Author Organization [facility] Address [address] [place] [address] Care Team Providers Care Used Car Sales Supervisor Name Role Phone Sylvie Eugene MD Primary Care Provider [phone] Allergies No known active allergies Medications traMADol [...] series) 04/17 Pap Smear (Ages 21-65) 1993 Colonoscopy 2017 Pneumococcal Vaccines 50+ (1 of 1 - PCV) 2022 Zoster (Shingles) Vaccine (1 of 2) 2022 Mammogram 12/18/2024 12/18/2022 Influenza Vaccine 03/16/2025 COVID-19 Vaccine (1 - 2023- season) 2025 RSV Vaccine 50 years and old er and Patients (1 - 1-dose 75+ series) 2047 Insurance Care Teams Used Car Sales Supervisor Relationship Specialty Start Date End Date Sylvie Eugene MD [address] [place] [address] PCP - General 01/23/23
--- OUTSIDE RECORDS SUMMARY | 2025-06-18 14:51 | XMS_ITS | Clinical Summary ---
Author Organization [facility] Address [address] [employer] [facility] [address] [place] [address] Phone Care Team Providers Care Guide Dog Trainer Name Role Phone Sylvie Eugene MD Unavailable [phone] Sylvie Eugene MD Primary Care Provider Allergies [...] Active ferrous sulfate 325 mg (65 mg tatitlek iron) EC tablet Take 325 mg by [...] malignant screening-i.e. mammogram, Pap smear. -Follow-up at [facility] stroke clinic in 1 to 2 months for further evaluation of stroke in young person. If MRI does not reveal acute stroke reconsult tele-neurology for further recommendations. Encounters Date Type Department Care Team Description 04/06/2025 3:29 PM EDT - 04/06/2025 11:59 PM EDT Hospital Encounter [facility] [address] [place] [address] Sylvie Eugene MD Discharge Disposition: Home or Self Care 10/04/2024 Procedure Pass 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 PAP SMEAR (THIN PREP) CE: SPECIMEN ADEQUACY: Satisfactory for evaluation; transformation zone absent/insufficient . INTERPRETATION: EPITHELIAL CELL ABNORMALITY - SQUAMOUS. Low grade squamous intraepithelial lesion. This specimen was analyzed by the automated ThinPrep Imaging System ([employer]bird.) and manually rescreened by a novelty maker and/or pathologist. Electronically Signed Out By: MD [...] by real-time polymerase chain reaction (PCR) at [facility], [address] [place] [address] using the FDA-approved [employer] Onclarity9 HPV Assay with extended genotyping. Uses of the assay in scenarios other than those approved by the FDA should be considered off-label use. The accuracy and precision of this test for all other off-label specimen sources has been verified in the Cytopathology Laboratory of the [facility] and has not been cleared or [...] Menopausal Infection History: HPV: OTHER HIGH RISK, 2023 Treatment History: Concurrent BXs Other Clinical Conditions: Screening Pap Abnormal PAP: ASCUS-H, 2022 SPECIMEN SOURCE A: PAP SMEAR (THIN PREP) CE Patient Name: KADEEM LEWIS : 1970 (Age: 54) Sex: F Institution: [facility] Location: [facility] Date of Collection: 07/25/2024 Date of Reported: 07/27/2024 12:54 Results to: Norman Gordon MD, BS [facility] Final Diagnosis A. PAP SMEAR (THIN PREP) CE: SPECIMEN ADEQUACY: Satisfactory for evaluation; transformation zone absent/insufficient . INTERPRETATION: EPITHELIAL CELL ABNORMALITY - SQUAMOUS. Low grade squamous intraepithelial lesion. This specimen was analyzed by the automated ThinPrep Imaging System (Storybird.) and manually rescreened by a novelty maker and/or pathologist. [facility] Gross Description [facility] Results\Interp retation A. PAP SMEAR (THIN PREP) CE: High-risk HPV Panel w/ extended genotyping POSHPV 16-NEG HPV 18-NEG HPV 45-NEG HPV 33/58-NEG HPV 31-NEG HPV 56/59/66-NEG HPV 51-NEG HPV 52-POSHPV 35/39/68-NEG Performed by real-time polymerase chain reaction (PCR) at [facility], [address] [place] [address] using the FDA-approved BD Onclarity HPV Assay with extended genotyping. Uses of the assay in scenarios other than those approved by the FDA should be considered off-label use. The accuracy and precision of this test for all other off-label specimen sources has been verified in the Cytopathology Laboratory of the [facility] and has not been cleared or approved by the U.S. Food and Drug Administration. Clinical correlation is advised. The assay assesses the E6/E7 DNA target and utilizes human beta globin as an internal control. Cytology and HPV testing are screening assays and should not be used as the sole means of detecting cancer. False-positives and false-negatives can occur. [facility] Conversion Type (Conversion Source) 07/25/2024 07/26/2024 9:28 AM EST us Norman Gordon MD CYTOLOGY ORDERABLES Edited Re sult - Final Performing Organization Address [facility] Co de Phone Number [address] [address] * (ABNORMAL) Lipid panel (04/02/2020 3:23 AM EDT) HDL 67 mg/dL [facility] Comment: Interpretation <40 mg/dL: Low HDL cholesterol (major risk factor for CHD) Greater than or equal to 60 mg/dL: High HDL cholesterol ( negative risk factor for CHD) HDL - cholesterol is affected by a number of factors, e.g. smoking, excerise, hormones, sex and age. CHOLESTEROL 204 0 - 240 mg/dL [facility] TRIGLYCERIDES 131 30 - 160 mg/dL [facility] LDL 111 50 - 129 mg/dL [facility] Comment: LDL levels in terms of risk for coronary heart disease: <100 mg/dL: Optimal 100-129 mg/dL: Near or above optimal 130-159 mg/dL: Borderline high 160-189 mg/dL: High >190 mg/dL: Very High CARDIAC RISK RATIO 3.0(L) 3.3 - 4.4 C [facility] 04/02/2020 3:23 AM EDT 04/02/2020 3:32 AM EDT us Garett Romo MD LAB BLOOD BKR ORDERABLES Final Result Performing Organization Address City/[facility] Co de Phone Number [address] [place] [address] from Last 3 Months or Most Recently Relevant to Health Maintenance Insurance [facility] [address] [facility] Advance Directives For more information, please contact: [phone] (9AM - 5PM [place], Wednesday-Wednesday) * Full Code (Confirmed) (Latest Code Status on File) Date Activated Date Inactivated Comments 04/02/2020 5:37 AM Question Answer Comments Code Status Confirmed With: Patient Code Status Communicated To: Inpatient Attending Care Teams Guide Dog Trainer Relationship Specialty Start Date End Date Sylvie Eugene MD [facility] [place] [address] [email or web address] PCP - General 06/05/17 Sylvie Eugene MD [email or web address] Historical LMR Provider 06/03/17 Additional Source Comments The information contained in this document represents components of the legal health record. It is not the complete legal health record.[facility]
--- OUTSIDE RECORDS SUMMARY | 2025-06-18 14:51 | XMS_ITS | Encounter Summary ---
Author Organization [employer] Address [address] [facility] 7t [place] [address] Care Team Providers Care Standpipe Tender Name Role Phone Soo Han DDS Unavailable [phone] Encounter Details Date Type Department Care [...] [facility] DENTAL [address] [place] [address] Katty Warner documented as of this encounter Visit Diagnoses Not on filedocumented in this encounter Care Teams Standpipe Tender Relationship Specialty Start Date End Date Soo Han DDS [address] [place] [address] Dental Ec Teacher 02/22/25 documented as of this encounter
--- OUTSIDE RECORDS SUMMARY | 2025-06-18 14:51 | XMS_ITS | Clinical Summary ---
Author Organization [employer] Address [address] [place] [address] 7t [place] [address] Care Team Providers Care Supervisor Intelligence Analyst Name Role Phone Soo Han DDS Unavailable [phone] Allergies No known active allergies Medications [...] Replace Required Details, Route to Pharmacy [facility]ically[facility], 158, cm, 01/05... 2 Active Social History Tobacco Use Types Packs/Day [...] Description 08/23/2025 2:00 PM EST Office Visit [facility] [address] [place] [address] Katty Warner Health Maintenance Due Date Last [...] exists Dental X-Ray: Full Mouth 11/07/2025 11/06/2022, 0 12/2016 Mammogram 12/23/2025 12/24/2023, 12/14, 12/18/2022, Additional [...] Procedure Name Priority Date/Time Associated Diagnosis Comments Full PROPHYLAXIS - ADULT Routine 025 3:00 PM EDT BITEWINGS - 4 RADIOGRAPHIC IMAGES Routine 02/08/2025 3:00 PM EDT PERIODIC ORAL EVALUATION - ESTABLISHED PATIENT Routine 02/08/2025 3:00 PM EDT INTRAORAL - COMPLETE SERIES OF RADIOGRAPHIC IMAGES Routine 11/06/2022 1:30 PM EDT from Last 3 Months or Most Recently Relevant to Health Maintenance Insurance [employer] [address] [place] [address] [address] [place] [address] Care Teams Supervisor Intelligence Analyst Relationship Specialty Start Date End Date Soo Han DDS [address] [place] [address] Dental Processor Helper 02/22/25
--- OUTSIDE RECORDS SUMMARY | 2025-06-18 14:51 | XMS_ITS | Encounter Summary ---
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 Not on file documented as of this encounter Plan of Treatment Not on file documented as of this encounter Visit Diagnoses Not on filedocumented in this encounter Care Teams Banbury Mill Operator Relationship Specialty Start Date End Date Syl[facility] [place] [address] [email or web address] PCP - General 06/05/17 Sylvie Eugene MD [email or web address] Historical LMR Provider 06/03/17 documented as of this encounter Additional Source Comments The information contained in this document represents components of the legal health record. It is not the complete legal health record.[facility]
--- OUTSIDE RECORDS SUMMARY | 2025-06-18 14:51 | XMS_ITS | Encounter Summary ---
Author Organization [facility] Address [address] [facility] [address] [place] [address] Phone Care Team Providers Care Auto Bumper Mechanic Name Role Phone Katie Landeros NP Unavailable Sylvie Eugene MD Unavailable [phone] Sylvie Eugene MD Primary Care Provider Encounter Details Date Type Department Care Team (Late st Contact Info) Description 06/15/2019 Ancillary Orders Virtual Department [address] [place] [address] Sylvie Eugene MD [address] [place] [address] [email or web address] Breast screening Social History Tobacco Use Types [...] unspecified documented in this encounter Care Teams Auto Bumper Mechanic Relationship Specialty Start Date End Date Sylvie Eugene MD [facility] [place] [address] PCP - General 06/05/17 Katie Landeros NP [address] [place] [address] Historical LMR Provider 06/03/1708/23/ 2 Sylvie Eugene MD [address] [place] [address] [email or web address] Historical LMR Provider 06/03/17 documented as of this encounter Additional Source Comments The information contained in this document represents components of the legal health record. It is not the complete legal health record.[facility]
--- OUTSIDE RECORDS SUMMARY | 2025-06-18 14:51 | XMS_ITS | Encounter Summary ---
Author Organization [facility] Address [address] [facility] [address] [place] [address] Phone Care Team Providers Care Programs Director Name Role Phone Katie Landeros BELT SPLICER Unavailable [phone] Sylvie Eugene MD Unavailable [phone] Sylvie Eugene MD Primary Care Provider Encounter Details Date Type Department Care Team (Late st Contact Info) Description 04/02/2020 Procedure Pass [facility], [address] [address] Social History Tobacco Use Types Packs/Day Years [...] on filedocumented in this encounter Care Teams Programs Director Relationship Specialty Start Date End Date Sylvie Eugene MD [address] [place] [address] [email or web address] PCP - General 06/05/17 Katie Landeros NP [address] [place] [address] Historical LMR Provider 06/03/1708/23/ 2 Sylvie Eugene MD [address] [place] [address] [email or web address] Historical LMR Provider 06/03/17 documented as of this encounter Additional Source Comments The information contained in this document represents components of the legal health record. It is not the complete legal health record.[facility]
== END 2025-06-18 11:40 | disposition home or self-care (01) ==
LOC: HO.HMGAL 11:39
PROVIDERS: PCP Family Medicine; Visit Provider Registered Nurse Emergency
DX: J30.89 Other allergic rhinitis (principal)
CPT/HCPCS: 95117; 95165

== ENCOUNTER 2025-06-25 09:32 | Outpatient (AMB) | payer OTHER, SELFPAY ==
--- OUTSIDE RECORDS SUMMARY | 2025-06-25 10:41 | XMS_ITS | Clinical Summary ---
Author Organization [employer] Address [address] [place] [address] 7t [place] [address] Care Team Providers Care Operations Expert Name Role Phone Soo Han DDS Unavailable [phone] Allergies No known active allergies Medications [...] Replace Required Details, Route to Pharmacy Electronically[facility] Pharm[facility], 158, cm, 01/05... 2 Active Social [...] Care Team (Late st Contact Info) Description 09/19/2025 2:00 PM EST Office Visit [facility] [address] [place] [address] Cindy Canales Health Maintenance Due Date Last Done Comments [...] 2025 05/11/2022, 06/22/2021, 11/27/2020, Additional history exists Dental Oral Exam 08/11/2025 02/08/2025, 01/2024, 12/27/2023, Additional history exists Dental Prophylaxis 08/11/2025 02/08/2025, 1 08/21/2023, 12/27/2023, Additional history exists Dental X-Ray: Full Mouth 11/07/2025 11/06/2022, 0512/2016 Mammogram 12/23/2025 12/24/2023, 12/14, 12/18/2022, Additional history exists Dental X-Ray: Bitewings 02/09/2026 02/09/20, 12/27/2023, 11/06/2022, Additional history exists DTaP/Tdap/Td Vaccines (3 - Td or Tdap) 10/12/2032 10/12/2022, 08/18/2012 RSV Patients and Patients Aged 60 years or older (1 - 1-dose 75+ series) 2047 Influenza Vaccine Completed 05/14/2025, , 05/11/2022, Additional history exists HIB Vaccines Aged Out No longer eligi [...] Most Recently Relevant to Health Maintenance Insurance [employer] Y [address] [place] [id number] [address] [place] [address] [id number] [address] [address] Care Teams Operations Expert Relationship Specialty Start Date End Date Soo Han DDS [address] [place] [address] Dental Bake Room Worker 02/22/25
--- OUTSIDE RECORDS SUMMARY | 2025-06-25 10:41 | XMS_ITS | Encounter Summary ---
Author Organization [employer] Address [address] [place] [address] 7t [place] [address] Care Team Providers Care License Issuer Name Role Phone Soo Han DDS Unavailable [phone] Encounter Details Date Type Department Care [...] Description 09/19/2025 2:00 PM EST Office Visit [facility] DENTAL [address] [place] [address] Cindy Canales documented as of this encounter Visit Diagnoses Not on filedocumented in this encounter Care Teams License Issuer Relationship Specialty Start Date End Date Soo Han DDS [address] [place] [address] Dental Implementation Consultant 02/22/25 documented as of this encounter
--- OUTSIDE RECORDS SUMMARY | 2025-06-25 10:41 | XMS_ITS | Encounter Summary ---
Author Organization [employer] Address [address] [place] [address] 7t [place] [address] Care Team Providers Care Construction Accountant Name Role Phone Soo Han DDS Unavailable [...] Description 09/19/2025 2:00 PM EST Office Visit [facility] DENTAL [address] [place] [address] Cindy Canales documented as of this encounter Visit Diagnoses Not on filedocumented in this encounter Care Teams Construction Accountant Relationship Specialty Start Date End Date Soo Han DDS [address] [place] [address] Dental Refrigeration Plant Operator 02/22/25 documented as of this encounter
--- OUTSIDE RECORDS SUMMARY | 2025-06-25 10:41 | XMS_ITS | Clinical Summary ---
Author Organization [facility] Address [address] [place] [address] Care Team Providers Care Supervisor Airplane Flight Attendant Name Role Phone Sylvie Eugene MD Primary Care Provider [phone] Allergies No known active allergies Medications traMADol [...] 1-dose 75+ series) 2047 Insurance Care Teams Supervisor Airplane Flight Attendant Relationship Specialty Start Date End Date Sylvie Eugene MD [address] [place] [address] PCP - General 01/23/23
--- OUTSIDE RECORDS SUMMARY | 2025-06-25 10:41 | XMS_ITS | Encounter Summary ---
Author Organization [employer] Address [address] [facility] 7t [place] [address] Care Team Providers Care Transfer Clerk Name Role Phone Soo Han DDS Unavailable [phone] Encounter Details Date Type Department Care [...] Description 09/19/2025 2:00 PM EST [facility] Visit [facility] D[facility] [address] [place] [address] Cindy Canales documented as of this encounter Visit Diagnoses Not on filedocumented in this encounter Care Teams Transfer Clerk Relationship Specialty Start Date End Date Soo Han DDS [address] [place] [address] Dental Retail Sales Representative 02/22/25 documented as of this encounter
--- OUTSIDE RECORDS SUMMARY | 2025-06-25 10:41 | XMS_ITS | Encounter Summary ---
Author Organization [employer] Address [address] [place] [address] 7t [place] [address] Care Team Providers Care Automatic Pad Making Machine Operator Name Role Phone Soo Han DDS Unavailable [phone] Encounter Details Date Type Department Care [...] Description 09/19/2025 2:00 PM EST Office [facility] DENTAL [address] [place] [address] Cindy Canales documented as of this encounter Visit Diagnoses Not on filedocumented in this encounter Care Teams Automatic Pad Making Machine Operator Relationship Specialty Start Date End Date Soo Han DDS [address] [place] [address] Dental Farm Management Professor 02/22/25 documented as of this encounter
--- OUTSIDE RECORDS SUMMARY | 2025-06-25 10:41 | XMS_ITS | Encounter Summary ---
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 It is not the complete legal health record.[facility]
--- OUTSIDE RECORDS SUMMARY | 2025-06-25 10:41 | XMS_ITS | Encounter Summary ---
Author Organization [employer] Address [address] [facility] 7t [place] [address] Care Team Providers Care Formulator Compounder Name Role Phone Soo Han DDS Unavailable [phone] Encounter Details Date Type Department Care [...] Description 09/19/2025 2:00 PM EST Office Visit [facility] DENTAL [address] [place] [address] Cindy Canales documented as of this encounter Visit Diagnoses Not on filedocumented in this encounter Care Teams Formulator Compounder Relationship Specialty Start Date End Date Soo Han DDS [address] [place] [address] Dental Tool And Die Machinist 02/22/25 documented as of this encounter
--- OUTSIDE RECORDS SUMMARY | 2025-06-25 10:41 | XMS_ITS | Encounter Summary ---
Author Organization [facility] Address [address] 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 Not on file documented as of this encounter Plan of Treatment Not on file documented as of this encounter Visit Diagnoses Not on filedocumented in this encounter Care Teams Remote Sensing Specialist Relationship Specialty Start Date End Date Sylvie Eugene MD [address] [place] [address] [email or web address] PCP - General 06/05/17 Katie Landeros NP [address] [place] [address] Historical LMR Provider 06/03/17 2 Sylvie Eugene MD [address] [place] [address] [email or web address] Historical LMR Provider 06/03/17 documented as of this encounter Additional Source Comments The information contained in this document represents components of the legal health record. It is not the complete legal health record.[facility]
--- OUTSIDE RECORDS SUMMARY | 2025-06-25 10:42 | XMS_ITS | Encounter Summary ---
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 It is not the complete legal health record.[facility]
--- OUTSIDE RECORDS SUMMARY | 2025-06-25 10:42 | XMS_ITS | Encounter Summary ---
Author Organization [facility] Address [address] [facility] [address] [place] [address] Phone Care Team Providers Care Car Wash Attendant Name Role Phone Katie Landeros NP Unavailable [phone] Sylvie Eugene MD Unavailable [phone] Sylvie Eugene MD Primary Care Provider Encounter Details Date Type Department Care Team (Late st Contact Info) Description 06/05/2017 Ancillary Orders [facility], [facility] [address] [place] [address] Sylvie Eugene MD [address] [place], [place] [phone] [email or web address] Diagnosis unknown Social History Tobacco Use Types [...] could obscure a lesion on mammography. POS: [id number] Narrative 07/20/2017 11:37 AM EST Screening Mammogram, [...] which couldobscure a lesion on mammography. POS: [id number] Sylvie Eugene MD IMG MG EXAMS Final R esult documented in this encounter Visit Diagnoses Diagnosis Diagnosis unknown Diagnosis unknown documented in this encounter Care Teams Car Wash Attendant Relationship Specialty Start Date End Date Sylvie Eugene MD [address] [place] [address] PCP - General 06/05/17 Katie Landeros NP [address] [place] [address] Historical LMR Provider 06/03/17 2 Sylvie Eugene MD [address] [place] [address] [email or web address] Historical LMR Provider 06/03/17 documented as of this encounter Additional Source Comments The information contained in this document represents components of the legal health record. It is not the complete legal health record.[facility]
--- OUTSIDE RECORDS SUMMARY | 2025-06-25 10:42 | XMS_ITS | Encounter Summary ---
Author Organization [facility] Address [address] [facility] [address] [place] [address] Phone Care Team Providers Care Director Cpg Name Role Phone Katie Landeros NP Unavailable Sylvie Eugene MD Unavailable [phone] Sylvie Eugene MD Primary Care Provider Encounter Details Date Type Department Care Team (Late st Contact Info) Description 09/19/2020 Ancillary Orders Virtual Department 30 [place] [address] Sylvie Eugene MD [address] [place] [address] [email or web address] Abnormal mammogram Social History Tobacco Use [...] unspecified documented in this encounter Care Teams Director Cpg Relationship Specialty Start Date End Date Sylvie Eugene MD [address] [place] [address] PCP - General 06/05/17 Katie Landeros NP [address] [place] [address] Historical LMR Provider 06/03/17 2 Sylvie Eugene MD [address] [place] [address] Historical LMR Provider 06/03/17 documented as of this encounter Additional Source Comments The information contained in this document represents components of the legal health record. It is not the complete legal health record.[facility]
--- OUTSIDE RECORDS SUMMARY | 2025-06-25 10:42 | XMS_ITS | Encounter Summary ---
Author Organization [facility] Address [address] [place] [address] Phone Care Team Providers Care Senior Systems Architect Name Role Phone Katie Landeros LEAD PROGRAMMER Unavailable [phone] Sylvie Eugene MD Unavailable [phone] Sylvie Eugene MD Primary Care Provider Encounter Details Date Type Department Care Team (Late st Contact Info) Description 04/01/2020 Procedure Pass [facility], Ct Scan - [address] [id number] Social History Tobacco Use Types Packs/Day Years [...] filedocumented in this encounter Care Teams Senior Systems Architect Relationship Specialty Start Date End Date Sylvie Eugene MD [address] [place] [address] [email or web address] PCP - General 06/05/17 Katie Landeros NP [address] [place] [address] Historical LMR Provider 06/03/1708/23/ 2 Sylvie Eugene MD [address] [place] [address] [email or web address] Historical LMR Provider 06/03/17 documented as of this encounter Additional Source Comments The information contained in this document represents components of the legal health record. It is not the complete legal health record.[facility]
--- OUTSIDE RECORDS SUMMARY | 2025-06-25 10:42 | XMS_ITS | Encounter Summary ---
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 It is not the complete legal health record.[facility]
--- OUTSIDE RECORDS SUMMARY | 2025-06-25 10:42 | XMS_ITS | Encounter Summary ---
Author Organization [facility] Address [address] [facility] [address] [place] [address] Phone Care Team Providers Care Shop Assistant Name Role Phone Katie Landeros BOILER WATER TESTER Unavailable [phone] Sylvie Eugene MD Unavailable [phone] Sylvie Eugene MD Primary Care Provider Encounter Details Date Type Department Care Team (Late st Contact Info) Description 09/19/2020 Procedure Pass [facility] - [address] [place] [address] Social History Tobacco Use Types Packs/Day Years [...] on filedocumented in this encounter Care Teams Shop Assistant Relationship Specialty Start Date End Date Sylvie Eugene MD [address] [place] [address] [email or web address] PCP - General 06/05/17 Katie Landeros NP [address] [place] [address] Historical LMR Provider 06/03/1708/23/ 2 Sylvie Eugene MD [address] [place] [address] [email or web address] Historical LMR Provider 06/03/17 documented as of this encounter Additional Source Comments The information contained in this document represents components of the legal health record. It is not the complete legal health record.[facility]
--- OUTSIDE RECORDS SUMMARY | 2025-06-25 10:42 | XMS_ITS | Encounter Summary ---
Author Organization [facility] Address [address] [facility] [address] [place] [address] Phone Care Team Providers Care Sales And Marketing Specialist Name Role Phone Katie Landeros OIL TREATER Unavailable [phone] Sylvie Eugene MD Unavailable [phone] Sylvie Eugene MD Primary Care Provider Encounter Details Date Type Department Care Team (Late st Contact Info) Description 05/09/2020 Procedure Pass [facility], [address] [phone] Social History Tobacco Use Types Packs/Day Years [...] on filedocumented in this encounter Care Teams Sales And Marketing Specialist Relationship Specialty Start Date End Date Sylvie Eugene MD [address] [place] [address] [email or web address] PCP - General 06/05/17 Katie Landeros NP [address] [place] [address] Historical LMR Provider 06/03/1708/23/ 2 Sylvie Eugene MD [address] [place] [address] [email or web address] Historical LMR Provider 06/03/17 documented as of this encounter Additional Source Comments The information contained in this document represents components of the legal health record. It is not the complete legal health record.[facility]
--- OUTSIDE RECORDS SUMMARY | 2025-06-25 10:42 | XMS_ITS | Encounter Summary ---
Author Organization [facility] Address [address] [facility] [address] [place] [address] Phone Care Team Providers Care Automotive Light Mechanic Name Role Phone Katie Landeros NP Unavailable Sylvie Eugene MD Unavailable [phone] Sylvie Eugene MD Primary Care Provider Encounter Details Date Type Department Care Team (Late st Contact Info) Description 05/09/2020 Ancillary Orders Virtual Department 30 [place] [address] Sylvie Eugene MD [address] [place] [address] [email or web address] Breast cancer screening by mammogram Social [...] mammogram documented in this encounter Care Teams Automotive Light Mechanic Relationship Specialty Start Date End Date Sylvie Eugene MD [address] [place] [address] PCP - General 06/05/17 Katie Landeros NP [address] [place] [address] Historical LMR Provider 06/03/1708/23/ 2 Sylvie Eugene MD [address] [place] [address] Historical LMR Provider 06/03/17 documented as of this encounter Additional Source Comments The information contained in this document represents components of the legal health record. It is not the complete legal health record.[facility]
--- OUTSIDE RECORDS SUMMARY | 2025-06-25 10:42 | XMS_ITS | Clinical Summary ---
Author Organization [facility] Address [address] [employer] [facility] [address] [place] [address] Phone Care Team Providers Care Commissioned Sales Associate Name Role Phone Sylvie Eugene MD Unavailable [phone] Sylvie Eugene MD Primary Care Provider Allergies [...] Active ferrous sulfate 325 mg (65 mg creek iron) EC tablet Take 325 mg by [...] malignant screening-i.e. mammogram, Pap smear. -Follow-up at [facility] stroke clinic in 1 to 2 months for further evaluation of stroke in young person. If MRI does not reveal acute stroke reconsult tele-neurology for further recommendations. 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 PAP SMEAR (THIN PREP) CE: SPECIMEN ADEQUACY: Satisfactory for evaluation; transformation zone absent/insufficient . INTERPRETATION: EPITHELIAL CELL ABNORMALITY - SQUAMOUS. Low grade squamous intraepithelial lesion. This specimen was analyzed by the automated ThinPrep Imaging System ([employer] and manually rescreened by a brain wave technician and/or pathologist. Electronically Signed Out By: MD [...] by real-time polymerase chain reaction (PCR) at [facility], [address] [place] [address] using the FDA-approved [employer] Onclarity9 HPV Assay with extended genotyping. Uses of the assay in scenarios other than those approved by the FDA should be considered off-label use. The accuracy and precision of this test for all other off-label specimen sources has been verified in the Cytopathology Laboratory of the [facility] and has not been cleared or [...] : 1970 (Age: 54) Sex: F Institution: [facility] Location: [facility] Date of Collection: 07/25/2024 Date of Reported: 07/27/2024 12:54 Results to: Norman Gordon MD, BS [facility] Final Diagnosis A. PAP SMEAR (THIN PREP) CE: SPECIMEN ADEQUACY: Satisfactory for evaluation; transformation zone absent/insufficient . INTERPRETATION: EPITHELIAL CELL ABNORMALITY - SQUAMOUS. Low grade squamous intraepithelial lesion. This specimen was analyzed by the automated ThinPrep Imaging System ([employer].) and manually rescreened by a brain wave technician and/or pathologist. [facility] Gross Description [facility] Results\Interp retation A. PAP SMEAR (THIN PREP) CE: High-risk HPV Panel w/ extended genotyping POSHPV 16-NEG HPV 18-NEG HPV 45-NEG HPV 33/58-NEG HPV 31-NEG HPV 56/59/66-NEG HPV 51-NEG HPV 52-POSHPV 35/39/68-NEG Performed by real-time polymerase chain reaction (PCR) at [facility], [address] [place] [address] using the FDA-approved [employer] Onclarity HPV Assay with extended genotyping. Uses of the assay in scenarios other than those approved by the FDA should be considered off-label use. The accuracy and precision of this test for all other off-label specimen sources has been verified in the Cytopathology Laboratory of the [facility] and has not been cleared or approved by the U.S. Food and Drug Administration. Clinical correlation is advised. The assay assesses the E6/E7 DNA target and utilizes human beta globin as an internal control. Cytology and HPV testing are screening assays and should not be used as the sole means of detecting cancer. False-positives and false-negatives can occur. [facility] Conversion Type (Conversion Source) 07/25/2024 07/26/2024 9:28 AM EST us Norman Gordon MD CYTOLOGY ORDERABLES Edited Re sult - Final Performing Organization Address [facility] Co de Phone Number [address] [address] * (ABNORMAL) Lipid panel (04/02/2020 3:23 AM EDT) HDL 67 mg/dL [facility] Comment: Interpretation <40 mg/dL: Low HDL cholesterol (major risk factor for CHD) Greater than or equal to 60 mg/dL: High HDL cholesterol ( negative risk factor for CHD) HDL - cholesterol is affected by a number of factors, e.g. smoking, excerise, hormones, sex and age. CHOLESTEROL 204 0 - 240 mg/dL [facility] TRIGLYCERIDES 131 30 - 160 mg/dL [facility] LDL 111 50 - 129 mg/dL [facility] Comment: LDL levels in terms of risk for coronary heart disease: <100 mg/dL: Optimal 100-129 mg/dL: Near or above optimal 130-159 mg/dL: Borderline high 160-189 mg/dL: High >190 mg/dL: Very High CARDIAC RISK RATIO 3.0(L) 3.3 - 4.4 C [facility] 04/02/2020 3:23 AM EDT 04/02/2020 3:32 AM EDT us Garett Romo MD LAB BLOOD BKR ORDERABLES Final Result Performing Organization Address City/[facility] Co de Phone Number [address] [place] [address] from Last 3 Months or Most Recently Relevant to Health Maintenance Insurance [facility] [place] [address] [facility] Advance Directives For more information, please contact: [phone] (9AM - 5PM [place], Wednesday-Wednesday) * Full Code (Confirmed) (Latest Code Status on File) Date Activated Date Inactivated Comments 04/02/2020 5:37 AM Question Answer Comments Code Status Confirmed With: Patient Code Status Communicated To: Inpatient Attending Care Teams Commissioned Sales Associate Relationship Specialty Start Date End Date Sylvie Eugene MD [facility] [place] [address] [email or web address] PCP - General 06/05/17 Sylvie Eugene MD [email or web address] Historical LMR Provider 06/03/17 Additional Source Comments The information contained in this document represents components of the legal health record. It is not the complete legal health record.[facility]
--- OUTSIDE RECORDS SUMMARY | 2025-06-25 10:42 | XMS_ITS | Encounter Summary ---
Author Organization [facility] Address [address] [facility] [address] [place] [address] Phone Care Team Providers Care Senior Sql Server Database Developer Name Role Phone Katie Landeros DIRECTOR OF PEDIATRIC REHABILITATION Unavailable [phone] Sylvie Eugene MD Unavailable [phone] Sylvie Eugene MD Primary Care Provider Encounter Details Date Type Department Care Team (Late st Contact Info) Description 04/02/2020 Procedure Pass [facility], [address] [address] Social History Tobacco Use Types Packs/Day Years [...] filedocumented in this encounter Care Teams Senior Sql Server Database Developer Relationship Specialty Start Date End Date Sylvie Eugene MD [address] [place] [address] [facility] health [email or web address] PCP - General 06/05/17 Katie Landeros NP [address] [place] [address] Historical LMR Provider 06/03/1708/23/ 2 Sylvie Eugene MD [address] [place] [address] [email or web address] Historical LMR Provider 06/03/17 documented as of this encounter Additional Source Comments The information contained in this document represents components of the legal health record. It is not the complete legal health record.[facility]
--- OUTSIDE RECORDS SUMMARY | 2025-06-25 10:42 | XMS_ITS | Encounter Summary ---
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 Breast composition: The breast tissue is heterogeneously dense which mayobscure small masses. FINDINGS: There are scattered groups of amorphous and punctate calcificationsbilaterally, there has been no significant interval change dating back [id number]. No abnormal masses, suspicious calcifications, or other [...] unspecified documented in this encounter Care Teams Caustic Purification Operator Relationship Specialty Start Date End Date Sylvie Eugene MD [address] [place] [address] PCP - General 06/05/17 Sylvie Eugene MD [email or web address] Historical LMR Provider 06/03/17 documented as of this encounter Additional Source Comments The information contained in this document represents components of the legal health record. It is not the complete legal health record.[facility]
--- OUTSIDE RECORDS SUMMARY | 2025-06-25 10:42 | XMS_ITS | Encounter Summary ---
Author Organization [facility] Address [address] [facility] [address] [place] [address] Phone Care Team Providers Care Inventory Control Manager Name Role Phone Katie Landeros NP Unavailable Sylvie Eugene MD Unavailable [phone] Sylvie Eugene MD Primary Care Provider Encounter Details Date Type Department Care Team (Late st Contact Info) Description 06/15/2019 Ancillary Orders Virtual Department [address] [place] [address] Sylvie Eugene MD [address] [place] [address] [email or web address] Breast screening Social History Tobacco Use Types [...] unspecified documented in this encounter Care Teams Inventory Control Manager Relationship Specialty Start Date End Date Sylvie Eugene MD [facility] [place] [address] PCP - General 06/05/17 Katie Landeros NP [address] [place] [address] Historical LMR Provider 06/03/1708/23/ 2 Sylvie Eugene MD [address] [place] [address] [email or web address] Historical LMR Provider 06/03/17 documented as of this encounter Additional Source Comments The information contained in this document represents components of the legal health record. It is not the complete legal health record.[facility]
--- OUTSIDE RECORDS SUMMARY | 2025-06-25 10:42 | XMS_ITS | Encounter Summary ---
Author Organization [facility] Address [address] [place] [address] Phone Care Team Providers Care Back Strip Machine Operator Name Role Phone Katie Landeros RESOURCE CENTER TEACHER Unavailable [phone] Sylvie Eugene MD Unavailable [phone] Sylvie Eugene MD Primary Care Provider Encounter Details Date Type Department Care Team (Late st Contact Info) Description 04/01/2020 Procedure Pass [facility], Ct Scan - [address] [id number] Social History Tobacco Use Types Packs/Day Years [...] on filedocumented in this encounter Care Teams Back Strip Machine Operator Relationship Specialty Start Date End Date Sylvie Eugene MD [address] [place] [address] [email or web address] PCP - General 06/05/17 Katie Landeros NP [address] [place] [address] Historical LMR Provider 06/03/1708/23/ 2 Sylvie Eugene MD [address] [place] [address] [email or web address] Historical LMR Provider 06/03/17 documented as of this encounter Additional Source Comments The information contained in this document represents components of the legal health record. It is not the complete legal health record.[facility]
== END 2025-06-25 09:43 | disposition home or self-care (01) ==
LOC: HO.HMGAL 09:32
PROVIDERS: PCP Family Medicine; Visit Provider Registered Nurse Emergency
DX: J30.89 Other allergic rhinitis (principal)
CPT/HCPCS: 95117; 95165

== ENCOUNTER 2025-07-04 11:19 | Outpatient (AMB) | payer OTHER, SELFPAY ==
--- OUTSIDE RECORDS SUMMARY | 2025-07-04 22:16 | XMS_ITS | Encounter Summary ---
Author Organization [employer] [facility] Address [address] [place] [address] 7t [place] [address] Care Team Providers Care Proofer Prepress Name Role Phone Soo Han DDS Unavailable [phone] Encounter Details Date Type Department Care [...] [facility] D[facility]AL [address] [place] [address] Cindy Canales documented as of this encounter Visit Diagnoses Not on filedocumented in this encounter Care Teams Proofer Prepress Relationship Specialty Start Date End Date Soo Han DDS [address] [place] [address] Dental Sand Blaster 02/22/25 documented as of this encounter
--- OUTSIDE RECORDS SUMMARY | 2025-07-04 22:16 | XMS_ITS | Encounter Summary ---
Author Organization [facility] Address [address] [place] [address] 7t [place] [address] Care Team Providers Care Exchange Trouble Shooter Name Role Phone Soo Han DDS Unavailable [...] Description 09/19/2025 2:00 PM EST Office Visit [facility] DENTAL [address] [place] [address] Cindy Canales documented as of this encounter Visit Diagnoses Not on filedocumented in this encounter Care Teams Exchange Trouble Shooter Relationship Specialty Start Date End Date Soo Han DDS [address] [place] [address] Dental Acid Dumper 02/22/25 documented as of this encounter
--- OUTSIDE RECORDS SUMMARY | 2025-07-04 22:16 | XMS_ITS | Encounter Summary ---
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 It is not the complete legal health record.[facility]
--- OUTSIDE RECORDS SUMMARY | 2025-07-04 22:16 | XMS_ITS | Clinical Summary ---
Author Organization [employer] Address [address] [place] [address] 7t [place] [address] Care Team Providers Care Sleep Manager Name Role Phone Soo Han DDS Unavailable [phone] Allergies No known active allergies Medications [...] Replace Required Details, Route to Pharm[facility]ically[facility], 158, cm, 01/05... 2 [...] Description 09/19/2025 2:00 PM EST Office Visit [facility] [address] [place] [address] Cindy Canales Health Maintenance Due Date Last [...] (2 of 2 - PCV) 09/20/2018 09/20/2017 RSV Patients and Patients Aged 60 years or older (1 - Risk 50-74 years 1-dose series) 2022 Zoster Vaccines (1 of 2) 2022 COVID-19 Vaccine ( season) 2025 05/11/2022, 06/22/2021, 11/27/2020, Additional history exists Dental Oral Exam 08/11/2025 02/08/2025, 01/2024, 12/27/2023, Additional history exists Dental Prophylaxis 08/11/2025 02/08/2025, 1 08/21/2023, 12/27/2023, Additional history exists Dental X-Ray: Full Mouth 11/07/2025 11/06/2022, 05/0 12/2016 Mammogram 12/23/2025 12/24/2023, 12/14, 12/18/2022, Additional history exists Dental X-Ray: Bitewings 02/09/2026 02/09/20, 12/27/2023, 11/06/2022, Additional history exists DTaP/Tdap/Td Vaccines (3 - Td or Tdap) 10/12/2032 10/12/2022, 08/18/2012 Influenza Vaccine Completed 05/14/2025, , 05/11/2022, Additional [...] Most Recently Relevant to Health Maintenance Insurance [employer] [address] [place] [id number] [address] [place] [id number] Care Teams Sleep Manager Relationship Specialty Start Date End Date Soo Han DDS [address] [place] [address] Dental Installment Account Checker 02/22/25
--- OUTSIDE RECORDS SUMMARY | 2025-07-04 22:16 | XMS_ITS | Encounter Summary ---
Author Organization [employer] Address [address] [place] [address] 7t [place] [address] Care Team Providers Care Plywood Stock Grader Name Role Phone Soo Han DDS Unavailable [phone] Encounter Details Date Type Department Care [...] Description 09/19/2025 2:00 PM EST Office Visit [facility] [address] [place] [address] Cindy Canales documented as of this encounter Visit Diagnoses Not on filedocumented in this encounter Care Teams Plywood Stock Grader Relationship Specialty Start Date End Date Soo Han DDS [address] [place] [address] Dental Retinal Surgeon 02/22/25 documented as of this encounter
--- OUTSIDE RECORDS SUMMARY | 2025-07-04 22:16 | XMS_ITS | Encounter Summary ---
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 file documented as of this encounter Plan of Treatment Not on file documented as of this encounter Visit Diagnoses Not on filedocumented in this encounter Care Teams Airplane Pilot Relationship Specialty Start Date End Date Sylvie Eugene MD [address] [place] [address] [email or web address] PCP - General 06/05/17 Katie Landeros NP [address] [place] [address] Historical LMR Provider 06/03/17 2 Sylvie Eugene MD [address] [place] [address] [email or web address] Historical LMR Provider 06/03/17 documented as of this encounter Additional Source Comments The information contained in this document represents components of the legal health record. It is not the complete legal health record.[facility]
--- OUTSIDE RECORDS SUMMARY | 2025-07-04 22:16 | XMS_ITS | Encounter Summary ---
Author Organization [employer] Address [address] [place] [address] 7t [place] [address] Care Team Providers Care Gripper Attacher Name Role Phone Soo Han DDS Unavailable [phone] Encounter Details Date Type Department Care [...] Description 09/19/2025 2:00 PM EST Office Visit [facility] [address] [place] [address] Cindy Canales documented as of this encounter Visit Diagnoses Not on filedocumented in this encounter Care Teams Gripper Attacher Relationship Specialty Start Date End Date Soo Han DDS [address] [place] [address] Dental City Auditor 02/22/25 documented as of this encounter
--- OUTSIDE RECORDS SUMMARY | 2025-07-04 22:16 | XMS_ITS | Encounter Summary ---
Author Organization [employer] Address [address] [place] [address] 7t [place] [address] Care Team Providers Care Theater Manager Name Role Phone Soo Hna DDS Unavailable [phone] Encounter Details Date Type Department Care [...] Description 09/19/2025 2:00 PM EST Office Visit [facility] [address] [place] [address] Cindy Canales documented as of this encounter Visit Diagnoses Not on filedocumented in this encounter Care Teams Theater Manager Relationship Specialty Start Date End Date Soo Han DDS [address] [place] [address] Dental Avaya Engineer 02/22/25 documented as of this encounter
--- OUTSIDE RECORDS SUMMARY | 2025-07-04 22:16 | XMS_ITS | Clinical Summary ---
Author Organization [facility] Address [address] [place] [address] Care Team Providers Care Tug Boat Captain Name Role Phone Sylvie Eugene MD Primary Care Provider [phone] Allergies No known active allergies Medications traMADol [...] 1-dose 75+ series) 2047 Insurance Care Teams Tug Boat Captain Relationship Specialty Start Date End Date Sylvie Eugene MD [address] [place] [address] PCP - General 01/23/23
--- OUTSIDE RECORDS SUMMARY | 2025-07-04 22:17 | XMS_ITS | Encounter Summary ---
Author Organization [facility] Address [address] [facility] [address] [place] [address] Phone Care Team Providers Care Pond Tender Name Role Phone Katie Landeros HAND BANDER Unavailable [phone] Sylvie Eugene MD Unavailable [phone] Sylvie Eugene MD Primary Care Provider Encounter Details Date Type Department Care Team (Late st Contact Info) Description 05/09/2020 Procedure Pass [facility], [address] [id number] Social History Tobacco Use Types Packs/Day Years [...] on filedocumented in this encounter Care Teams Pond Tender Relationship Specialty Start Date End Date Sylvie Eugene MD [address] [place] [address] [email or web address] PCP - General 06/05/17 Katie Landeros NP [address] [place] [address] Historical LMR Provider 06/03/1708/23/ 2 Sylvie Eugene MD [address] [place] [address] [email or web address] Historical LMR Provider 06/03/17 documented as of this encounter Additional Source Comments The information contained in this document represents components of the legal health record. It is not the complete legal health record.[facility]
--- OUTSIDE RECORDS SUMMARY | 2025-07-04 22:17 | XMS_ITS | Encounter Summary ---
Author Organization [facility] Address [address] [place] [address] Phone Care Team Providers Care Student Financial Services Counselor Name Role Phone Sylvie Eugene MD Unavailable [phone] Sylvie Eugene MD Primary Care Provider Encounter Details Date Type Department Care Team (Late st Contact Info) Description 10/04/2024 Procedure Pass [facility], 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 Not on file documented as of this encounter Plan of Treatment Not on file documented as of this encounter Visit Diagnoses Not on filedocumented in this encounter Care Teams Student Financial Services Counselor Relationship Specialty Start Date End Date Sylvie Eugene MD [facility] [place] [address] [email or web address] PCP - General 06/05/17 Sylvie Eugene MD [email or web address] Historical LMR Provider 06/03/17 documented as of this encounter Additional Source Comments The information contained in this document represents components of the legal health record. It is not the complete legal health record.[facility]
--- OUTSIDE RECORDS SUMMARY | 2025-07-04 22:17 | XMS_ITS | Encounter Summary ---
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 on file documented as of this encounter Plan of Treatment Not on file documented as of this encounter Visit Diagnoses Not on filedocumented in this encounter Care Teams Precinct Police Captain Relationship Specialty Start Date End Date Sylvie Eugene MD [facility] [place] [address] [email or web address] PCP - General 06/05/17 Sylvie Eugene MD [email or web address] Historical LMR Provider 06/03/17 documented as of this encounter Additional Source Comments The information contained in this document represents components of the legal health record. It is not the complete legal health record.[facility]
--- OUTSIDE RECORDS SUMMARY | 2025-07-04 22:17 | XMS_ITS | Encounter Summary ---
Author Organization [facility] Address [facility] [address] [place] [address] Phone Care Team Providers Care Paraffin Plant Operator Name Role Phone Katie Landeros NP Unavailable [phone] Sylvie Eugene MD Unavailable [phone] Sylvie Eugene MD Primary Care Provider Encounter Details Date Type Department Care Team (Late st Contact Info) Description 06/05/2017 Ancillary Orders [facility], [facility] [address] [place] [address] Sylvie Eugene MD [address] [place], [place] [phone] [email or web address] Diagnosis unknown Social History Tobacco Use Types [...] could obscure a lesion on mammography. POS: [id number] Narrative 07/20/2017 11:37 AM EST Screening Mammogram, [...] which couldobscure a lesion on mammography. POS: [id number] Sylvie Eugene MD IMG MG EXAMS Final R esult documented in this encounter Visit Diagnoses Diagnosis Diagnosis unknown Diagnosis unknown documented in this encounter Care Teams Paraffin Plant Operator Relationship Specialty Start Date End Date Sylvie Eugene MD [address] [place] [address] PCP - General 06/05/17 Katie Landeros NP [address] [place] [address] Historical LMR Provider 06/03/17 2 Sylvie Eugene MD [address] [place] [address] [email or web address] Historical LMR Provider 06/03/17 documented as of this encounter Additional Source Comments The information contained in this document represents components of the legal health record. It is not the complete legal health record.[facility]
--- OUTSIDE RECORDS SUMMARY | 2025-07-04 22:17 | XMS_ITS | Encounter Summary ---
Author Organization [facility] Address [address] [facility] [address] [place] [address] Phone Care Team Providers Care Assistant Manager Pt Name Role Phone Katie Landeros CORONER/MEDICAL EXAMINER Unavailable [phone] Sylvie Eugene MD Unavailable [phone] Sylvie Eugene MD Primary Care Provider Encounter Details Date Type Department Care Team (Late st Contact Info) Description 04/01/2020 Procedure Pass [facility], Ct Scan - [address] [id number] Social History Tobacco Use Types Packs/Day Years [...] on filedocumented in this encounter Care Teams Assistant Manager Pt Relationship Specialty Start Date End Date Sylvie Eugene MD [address] [place] [address] [email or web address] PCP - General 06/05/17 Katie Landeros NP [address] [place] [address] Historical LMR Provider 06/03/1708/23/ 2 Sylvie Eugene MD [address] [place] [address] [email or web address] Historical LMR Provider 06/03/17 documented as of this encounter Additional Source Comments The information contained in this document represents components of the legal health record. It is not the complete legal health record.[facility]
--- OUTSIDE RECORDS SUMMARY | 2025-07-04 22:17 | XMS_ITS | Encounter Summary ---
Author Organization [facility] Address [address] [facility] [address] [place] [address] Phone Care Team Providers Care Thinner Sprayer Name Role Phone Katie Landeros MIND READER Unavailable [phone] Sylvie Eugene MD Unavailable [phone] Sylvie Eugene MD Primary Care Provider Encounter Details Date Type Department Care Team (Late st Contact Info) Description 04/02/2020 Procedure Pass [facility], [address] [address] Social History Tobacco Use Types Packs/Day Years [...] on filedocumented in this encounter Care Teams Thinner Sprayer Relationship Specialty Start Date End Date Sylvei Eugene MD [address] [place] [address] critical access [email or web address] PCP - General 06/05/17 Katie Landeros NP [address] [place] [address] Historical LMR Provider 06/03/1708/23/ 2 Sylvie Eugene MD [address] [place] [address] [email or web address] Historical LMR Provider 06/03/17 documented as of this encounter Additional Source Comments The information contained in this document represents components of the legal health record. It is not the complete legal health record.[facility]
--- OUTSIDE RECORDS SUMMARY | 2025-07-04 22:17 | XMS_ITS | Encounter Summary ---
Author Organization [facility] Address [address] [facility] [address] [place] [address] Phone Care Team Providers Care Dock Superintendent Name Role Phone Katie Landeros NP Unavailable Sylvie Eugene MD Unavailable [phone] Sylvie Eugene MD Primary Care Provider Encounter Details Date Type Department Care Team (Late st Contact Info) Description 09/19/2020 Ancillary Orders Virtual Department [address] [place] [address] Sylvie Eugene MD [address] [place] [address] [email or web address] Abnormal mammogram Social History Tobacco Use [...] unspecified documented in this encounter Care Teams Dock Superintendent Relationship Specialty Start Date End Date Sylvie Eugene MD [address] [place] [address] PCP - General 06/05/17 Katie Landeros NP [address] [place] [address] Historical LMR Provider 06/03/17 2 Sylvie Eugene MD [address] [place] [address] Historical LMR Provider 06/03/17 documented as of this encounter Additional Source Comments The information contained in this document represents components of the legal health record. It is not the complete legal health record.[facility]
--- OUTSIDE RECORDS SUMMARY | 2025-07-04 22:17 | XMS_ITS | Encounter Summary ---
Author Organization [facility] Address [address] [facility] [address] [place] [address] Phone Care Team Providers Care Home Health Care Provider Name Role Phone Katie Landeros SWITCHBOARD OPERATOR HELPER Unavailable [phone] Sylvie Eugene MD Unavailable [phone] Sylvie Eugene MD Primary Care Provider Encounter Details Date Type Department Care Team (Late st Contact Info) Description 09/19/2020 Procedure Pass [facility] - [address] [place] [address] Social History Tobacco Use Types Packs/Day Years [...] in this encounter Care Teams Home Health Care Provider Relationship Specialty Start Date End Date Sylvie Eugene MD [address] [place] [address] formerly [email or web address] PCP - General 06/05/17 Katie Landeros NP [address] [place] [address] Historical LMR Provider 06/03/1708/23/ 2 Sylvie Eugene MD [address] [place] [address] [email or web address] Historical LMR Provider 06/03/17 documented as of this encounter Additional Source Comments The information contained in this document represents components of the legal health record. It is not the complete legal health record.[facility]
--- OUTSIDE RECORDS SUMMARY | 2025-07-04 22:17 | XMS_ITS | Encounter Summary ---
Author Organization [facility] Address [address] [facility] [address] [place] [address] Phone Care Team Providers Care Stencil Cutter Name Role Phone Katie Landeros SCHOOL PRINCIPAL Unavailable [phone] Sylvie Eugene MD Unavailable [phone] Sylvie Eugene MD Primary Care Provider Encounter Details Date Type Department Care Team (Late st Contact Info) Description 04/01/2020 Procedure Pass [facility], Ct Scan - [address] [id number] Social History Tobacco Use Types Packs/Day Years [...] on filedocumented in this encounter Care Teams Stencil Cutter Relationship Specialty Start Date End Date Sylvie Eugene MD [address] [place] [address] [email or web address] PCP - General 06/05/17 Katie Landeros NP [address] [place] [address] Historical LMR Provider 06/03/1708/23/ 2 Sylvie Eugene MD [address] [place] [address] [email or web address] Historical LMR Provider 06/03/17 documented as of this encounter Additional Source Comments The information contained in this document represents components of the legal health record. It is not the complete legal health record.[facility]
--- OUTSIDE RECORDS SUMMARY | 2025-07-04 22:17 | XMS_ITS | Encounter Summary ---
Author Organization [facility] Address [email or web address] [facility] [address] [place] [address] Phone Care Team Providers Care Automatic Wheel Line Operator Name Role Phone Katie Landeros NP Unavailable [phone] Sylvie Eugene MD Unavailable [phone] Sylvie Eugene MD Primary Care Provider Encounter Details Date Type Department Care Team (Late st Contact Info) Description 05/09/2020 Ancillary Orders Virtual Department [address] [place] [address] Sylvie Eugene MD [address] [place] [address] [email or web address] Breast cancer screening by mammogram Social [...] mammogram documented in this encounter Care Teams Automatic Wheel Line Operator Relationship Specialty Start Date End Date Sylvie Eugene MD [address] [place] [address] PCP - General 06/05/17 Katie Landeros NP [address] [place] [address] Historical LMR Provider 06/03/1708/23/ 2 Sylvie Eugene MD [address] [place] [address] Historical LMR Provider 06/03/17 documented as of this encounter Additional Source Comments The information contained in this document represents components of the legal health record. It is not the complete legal health record.[facility]
--- OUTSIDE RECORDS SUMMARY | 2025-07-04 22:17 | XMS_ITS | Encounter Summary ---
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 Breast composition: The breast tissue is heterogeneously dense which mayobscure small masses. FINDINGS: There are scattered groups of amorphous and punctate calcificationsbilaterally, there has been no significant interval change dating back [id number]. No abnormal masses, suspicious calcifications, or other [...] unspecified documented in this encounter Care Teams Retouching Operator Relationship Specialty Start Date End Date Sylvie Eugene MD [address] [place] [address] PCP - General 06/05/17 Sylvie Eugene MD Historical LMR Provider 06/03/17 documented as of this encounter Additional Source Comments The information contained in this document represents components of the legal health record. It is not the complete legal health record.[facility]
--- OUTSIDE RECORDS SUMMARY | 2025-07-04 22:17 | XMS_ITS | Encounter Summary ---
Author Organization [facility] Address [address] [facility] [address] [place] [address] Phone Care Team Providers Care Fulling Machine Operator Name Role Phone Katie Landeros NP Unavailable [phone] Sylvie Eugene MD Unavailable [phone] Sylvie Eugene MD Primary Care Provider Encounter Details Date Type Department Care Team (Late st Contact Info) Description 06/15/2019 Ancillary Orders Virtual Department 30 [place] [address] Sylvie Eugene MD [address] [place] [address] [email or web address] Breast screening Social History Tobacco Use Types [...] unspecified documented in this encounter Care Teams Fulling Machine Operator Relationship Specialty Start Date End Date Sylvie Eugene [facility] [place] [address] PCP - General 06/05/17 Katie Landeros NP 30 [place] [address] Historical LMR Provider 06/03/1708/23/ 2 Sylvie Eugene MD [address] [place] [address] [email or web address] Historical LMR Provider 06/03/17 documented as of this encounter Additional Source Comments The information contained in this document represents components of the legal health record. It is not the complete legal health record.[facility]
== END 2025-07-04 11:21 | disposition home or self-care (01) ==
LOC: HO.HMGAL 11:19
PROVIDERS: PCP Family Medicine; Visit Provider Registered Nurse Emergency
DX: J30.89 Other allergic rhinitis (principal)
CPT/HCPCS: 95117; 95165

== ENCOUNTER 2025-07-09 11:47 | Outpatient (AMB) | payer OTHER, SELFPAY ==
--- OUTSIDE RECORDS SUMMARY | 2025-07-09 15:43 | XMS_ITS | Encounter Summary ---
Author Organization [employer] Address [address] [facility] 7t [place] [address] Care Team Providers Care Sheetmetal Worker Name Role Phone Soo Han DDS Unavailable [phone] Encounter Details Date Type Department Care [...] Description 09/19/2025 2:00 PM EST Office Visit [facility] DENTAL [address] [place] [address] Cindy Canales documented as of this encounter Visit Diagnoses Not on filedocumented in this encounter Care Teams Sheetmetal Worker Relationship Specialty Start Date End Date Soo Han DDS 9 [place] [address] Dental Engine Watchman 02/22/25 documented as of this encounter
--- OUTSIDE RECORDS SUMMARY | 2025-07-09 15:43 | XMS_ITS | Encounter Summary ---
Author Organization [facility] Address [address] [facility] [address] [place] [address] Phone Care Team Providers Care Funeral Director/Embalmer/Owner Name Role Phone Katie Landeros OFFICE SUPPORT Unavailable Sylvie Eugene MD Unavailable [phone] Sylvie Eugene MD Primary Care Provider Encounter Details Date Type Department Care Team (Late st Contact Info) Description 07/21/2021 Procedure Pass [facility], [address] [id number] Social History Tobacco Use Types Packs/Day Years [...] on filedocumented in this encounter Care Teams Funeral Director/Embalmer/Owner Relationship Specialty Start Date End Date Sylvie Eugene MD [address] [place] [address] [email or web address] PCP - General 06/05/17 Katie Landeros NP [address] [place] [address] Historical LMR Provider 06/03/17 2 Sylvie Eugene MD [address] [place] [address] [email or web address] Historical LMR Provider 06/03/17 documented as of this encounter Additional Source Comments The information contained in this document represents components of the legal health record. It is not the complete legal health record.[facility]
--- OUTSIDE RECORDS SUMMARY | 2025-07-09 15:43 | XMS_ITS | Encounter Summary ---
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 It is not the complete legal health record.[facility]
--- OUTSIDE RECORDS SUMMARY | 2025-07-09 15:43 | XMS_ITS | Encounter Summary ---
Author Organization [employer] Address [address] [facility] 7t [place] [address] Care Team Providers Care Director For Beauty School Name Role Phone Soo Han DDS Unavailable [phone] Encounter Details Date Type Department Care [...] PM EST Office Visit [facility] DENTAL [address] [place] [address] Cindy Canales documented as of this encounter Visit Diagnoses Not on filedocumented in this encounter Care Teams Director For Beauty School Relationship Specialty Start Date End Date Soo Han DDS 9 [place] [address] Dental Oracle Fusion Middleware Developer 02/22/25 documented as of this encounter
--- OUTSIDE RECORDS SUMMARY | 2025-07-09 15:43 | XMS_ITS | Encounter Summary ---
Author Organization [employer] Address [address] [place] [address] 7t [place] [address] Care Team Providers Care Guard Captain Name Role Phone Soo Han DDS Unavailable [phone] Encounter Details Date Type Department Care [...] Description 09/19/2025 2:00 PM EST Office Visit [facility] DENTAL [address] [place] [address] Cindy Canales documented as of this encounter Visit Diagnoses Not on filedocumented in this encounter Care Teams Guard Captain Relationship Specialty Start Date End Date Soo Han DDS 9 [place] [address] Dental Senior Front End Developer 02/22/25 documented as of this encounter
--- OUTSIDE RECORDS SUMMARY | 2025-07-09 15:44 | XMS_ITS | Encounter Summary ---
Author Organization [facility] Address [address] [facility] [address] [place] [address] Phone Care Team Providers Care Machine Repairman Name Role Phone Katie Landeros NP Unavailable Sylvie Eugene MD Unavailable [phone] Sylvie Eugene MD Primary Care Provider Encounter Details Date Type Department Care Team (Late st Contact Info) Description 06/15/2019 Ancillary Orders Virtual Department 30 [place] [address] Sylvie Eugene MD [address] [place] [address] [email or web address] Breast screening Social History [...] unspecified documented in this encounter Care Teams Machine Repairman Relationship Specialty Start Date End Date Syl[facility] [place] [address] PCP - General 06/05/17 Katie Landeros NP 30 [place] [address] Historical LMR Provider 06/03/1708/23/ 2 Sylvie Eugene MD [address] [place] [address] [email or web address] Historical LMR Provider 06/03/17 documented as of this encounter Additional Source Comments The information contained in this document represents components of the legal health record. It is not the complete legal health record.[facility]
--- OUTSIDE RECORDS SUMMARY | 2025-07-09 15:44 | XMS_ITS | Clinical Summary ---
Author Organization [facility] Address [address] [facility] [address] [place] [address] Phone Care Team Providers Care Web Content Editor Name Role Phone Sylvie Eugene MD Unavailable Sylvie Eugene MD Primary Care Provider Allergies [...] Active ferrous sulfate 325 mg (65 mg yuhaaviatam iron) EC tablet Take 325 mg by [...] malignant screening-i.e. mammogram, Pap smear. -Follow-up at [facility] stroke clinic in 1 to 2 months for further evaluation of stroke in young person. If MRI does not reveal acute stroke reconsult tele-neurology for further recommendations. 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 PAP SMEAR (THIN PREP) CE: SPECIMEN ADEQUACY: Satisfactory for evaluation; transformation zone absent/insufficient . INTERPRETATION: EPITHELIAL CELL ABNORMALITY - SQUAMOUS. Low grade squamous intraepithelial lesion. This specimen was analyzed by the automated ThinPrep Imaging System (Iptune.) and manually rescreened by a sweeper brush maker machine and/or pathologist. Electronically Signed Out By: MD Paradise Munoz CT(ASC) By his/her signature above, the pathologist listed [...] by real-time polymerase chain reaction (PCR) at [facility], [address] [place] [address] using the FDA-approved BD Onclarity9 HPV Assay with extended genotyping. Uses of the assay in scenarios other than those approved by the FDA should be considered off-label use. The accuracy and precision of this test for all other off-label specimen sources has been verified in the Cytopathology Laboratory of the [facility] and has not been cleared or approved [...] : 1970 (Age: 54) Sex: F Institution: [facility] Location: [facility] Date of Collection: 07/25/2024 Date of Reported: 07/27/2024 12:54 Results to: Norman Gordon MD, BS [facility] Final Diagnosis A. PAP SMEAR (THIN PREP) CE: SPECIMEN ADEQUACY: Satisfactory for evaluation; transformation zone absent/insufficient . INTERPRETATION: EPITHELIAL CELL ABNORMALITY - SQUAMOUS. Low grade squamous intraepithelial lesion. This specimen was analyzed by the automated ThinPrep Imaging System (Iptune.) and manually rescreened by a sweeper brush maker machine and/or pathologist. [facility] Gross Description [facility] Results\Interp retation A. PAP SMEAR (THIN PREP) CE: High-risk HPV Panel w/ extended genotyping POSHPV 16-NEG HPV 18-NEG HPV 45-NEG HPV 33/58-NEG HPV 31-NEG HPV 56/59/66-NEG HPV 51-NEG HPV 52-POSHPV 35/39/68-NEG Performed by real-time polymerase chain reaction (PCR) at [facility], [address] [place] [address] using the FDA-approved BD Onclarity HPV Assay with extended genotyping. Uses of the assay in scenarios other than those approved by the FDA should be considered off-label use. The accuracy and precision of this test for all other off-label specimen sources has been verified in the Cytopathology Laboratory of the [facility] and has not been cleared or approved by the U.S. Food and Drug Administration. Clinical correlation is advised. The assay assesses the E6/E7 DNA target and utilizes human beta globin as an internal control. Cytology and HPV testing are screening assays and should not be used as the sole means of detecting cancer. False-positives and false-negatives can occur. [facility] Conversion Type (Conversion Source) 07/25/2024 07/26/2024 9:28 AM EST us Norman Gordon MD CYTOLOGY ORDERABLES Edited Re sult - Final Performing Organization Address [facility]/ZIP Co de Phone Number [address] [address] * (ABNORMAL) Lipid panel (04/02/2020 3:23 AM EDT) HDL 67 mg/dL [facility] Comment: Interpretation <40 mg/dL: Low HDL cholesterol (major risk factor for CHD) Greater than or equal to 60 mg/dL: High HDL cholesterol ( negative risk factor for CHD) HDL - cholesterol is affected by a number of factors, e.g. smoking, excerise, hormones, sex and age. CHOLESTEROL 204 0 - 240 mg/dL [facility] TRIGLYCERIDES 131 30 - 160 mg/dL [facility] LDL 111 50 - 129 mg/dL [facility] Comment: LDL levels in terms of risk for coronary heart disease: <100 mg/dL: Optimal 100-129 mg/dL: Near or above optimal 130-159 mg/dL: Borderline high 160-189 mg/dL: High >190 mg/dL: Very High CARDIAC RISK RATIO 3.0(L) 3.3 - 4.4 C [facility] 04/02/2020 3:23 AM EDT 04/02/2020 3:32 AM EDT us Garett Romo MD LAB BLOOD BKR ORDERABLES Final Result Performing Organization Address City/[facility]/ZIP Co de Phone Number [address] [address] from Last 3 Months or Most Recently Relevant to Health Maintenance Insurance #[address] [place] [address] [facility] HMO [facility] HMO Advance Directives For more information, please contact: [phone] (9AM - 5PM [facility], Wednesday-Wednesday) * Full Code (Confirmed) (Latest Code Status on File) Date Activated Date Inactivated Comments 04/02/2020 5:37 AM Question Answer Comments Code Status Confirmed With: Patient Code Status Communicated To: Inpatient Attending Care Teams Web Content Editor Relationship Specialty Start Date End Date Sylvie Eugene MD [address] [place] [address] PCP - General 06/05/17 Sylvie Eugene MD Historical LMR Provider 06/03/17 Additional Source Comments The information contained in this document represents components of the legal health record. It is not the complete legal health record.[facility]
--- OUTSIDE RECORDS SUMMARY | 2025-07-09 15:44 | XMS_ITS | Clinical Summary ---
Author Organization [facility] Address [address] [place] [address] Care Team Providers Care Store Assistant Name Role Phone Sylvie Eugene MD Primary Care Provider [phone] Allergies No known active allergies Medications traMADol [...] 1-dose 75+ series) 2047 Insurance Care Teams Store Assistant Relationship Specialty Start Date End Date Sylvie Eugene MD [address] [place] [address] PCP - General 01/23/23
--- OUTSIDE RECORDS SUMMARY | 2025-07-09 15:44 | XMS_ITS | Encounter Summary ---
Author Organization [facility] Address [address] [facility] [address] [place] [address] Phone Care Team Providers Care Tyre Builder Name Role Phone Katie Landeros NP Unavailable Sylvie Eugene MD Unavailable [phone] Sylvie Eugene MD Primary Care Provider Encounter Details Date Type Department Care Team (Late st Contact Info) Description 05/09/2020 Ancillary Orders Virtual Department 30 [place] [address] Sylvie Eugene MD [address] [place] [address] [email or web address] Breast cancer screening by mammogram Social [...] mammogram documented in this encounter Care Teams Tyre Builder Relationship Specialty Start Date End Date Sylvie Eugene MD [address] [place] [address] PCP - General 06/05/17 Katie Landeros NP [address] [place] [address] Historical LMR Provider 06/03/1708/23/ 2 Sylvie Eugene MD [address] [place] [address] Historical LMR Provider 06/03/17 documented as of this encounter Additional Source Comments The information contained in this document represents components of the legal health record. It is not the complete legal health record.[facility]
--- OUTSIDE RECORDS SUMMARY | 2025-07-09 15:44 | XMS_ITS | Encounter Summary ---
Author Organization [employer] Address [address] [facility] 7t [place] [address] Care Team Providers Care Thermo Processor Name Role Phone Soo Han DDS Unavailable [phone] Encounter Details Date Type Department Care [...] Description 09/19/2025 2:00 PM EST Office Visit [facility] DENTAL [address] [place] [address] Cindy Canales documented as of this encounter Visit Diagnoses Not on filedocumented in this encounter Care Teams Thermo Processor Relationship Specialty Start Date End Date Soo Han DDS 9 [place] [address] Dental Student Ministry Pastor 02/22/25 documented as of this encounter
--- OUTSIDE RECORDS SUMMARY | 2025-07-09 15:44 | XMS_ITS | Encounter Summary ---
Author Organization [facility] Address [address] [facility] [address] [place] [address] Phone Care Team Providers Care Solar Sales Ambassador Name Role Phone Katie Landeros WAREHOUSE LOGISTICS COORDINATOR Unavailable [phone] Sylvie Eugene MD Unavailable [phone] Sylvie Eugene MD Primary Care Provider Encounter Details Date Type Department Care Team (Late st Contact Info) Description 04/02/2020 Procedure Pass [facility], [address] [address] Social History Tobacco Use Types Packs/Day Years [...] on filedocumented in this encounter Care Teams Solar Sales Ambassador Relationship Specialty Start Date End Date Sylvie Eugene MD [address] [place] [address] [email or web address] PCP - General 06/05/17 Katie Landeros NP [address] [place] [address] Historical LMR Provider 06/03/1708/23/ 2 Sylvie Eugene MD [address] [place] [address] [email or web address] Historical LMR Provider 06/03/17 documented as of this encounter Additional Source Comments The information contained in this document represents components of the legal health record. It is not the complete legal health record.[facility]
--- OUTSIDE RECORDS SUMMARY | 2025-07-09 15:44 | XMS_ITS | Encounter Summary ---
Author Organization [facility] Address [address] [facility] [address] [place] [address] Phone Care Team Providers Care Supervisor Dumping Name Role Phone Katie Landeros AUTOMOBILE BUMPER STRAIGHTENER Unavailable [phone] Sylvie Eugene MD Unavailable [phone] Sylvie Eugene MD Primary Care Provider Encounter Details Date Type Department Care Team (Late st Contact Info) Description 05/09/2020 Procedure Pass [facility], [address] [phone] Social History Tobacco Use Types Packs/Day Years [...] filedocumented in this encounter Care Teams Supervisor Dumping Relationship Specialty Start Date End Date Sylvie Eugene MD [address] [place] [address] [email or web address] PCP - General 06/05/17 Katie Landeros NP [address] [place] [address] Historical LMR Provider 06/03/1708/23/ 2 Sylvie Eugene MD [address] [place] [address] [email or web address] Historical LMR Provider 06/03/17 documented as of this encounter Additional Source Comments The information contained in this document represents components of the legal health record. It is not the complete legal health record.[facility]
--- OUTSIDE RECORDS SUMMARY | 2025-07-09 15:44 | XMS_ITS | Encounter Summary ---
Author Organization [facility] Address [address] [place] [address] Phone Care Team Providers Care Weed Inspector Name Role Phone Katie Landeros APPLICATION ARCHITECT MANAGER Unavailable [phone] Sylvie Eugene MD Unavailable [phone] Sylvie Eugene MD Primary Care Provider Encounter Details Date Type Department Care Team (Late st Contact Info) Description 04/01/2020 Procedure Pass [facility], Ct Scan - [address] [phone] Social History Tobacco Use Types Packs/Day Years [...] on filedocumented in this encounter Care Teams Weed Inspector Relationship Specialty Start Date End Date Sylvie Eugene MD [address] [place] [address] [email or web address] PCP - General 06/05/17 Katie Landeros NP [address] [place] [address] Historical LMR Provider 06/03/1708/23/ 2 Sylvie Eugene MD [address] [place] [address] [email or web address] Historical LMR Provider 06/03/17 documented as of this encounter Additional Source Comments The information contained in this document represents components of the legal health record. It is not the complete legal health record.[facility]
--- OUTSIDE RECORDS SUMMARY | 2025-07-09 15:44 | XMS_ITS | Encounter Summary ---
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 It is not the complete legal health record.[facility]
--- OUTSIDE RECORDS SUMMARY | 2025-07-09 15:44 | XMS_ITS | Encounter Summary ---
Author Organization [facility] Address [address] [place] [address] Phone Care Team Providers Care Promotions Assistant Sales Marketing Name Role Phone Katie Landeros PRICING ANALYST Unavailable [phone] Sylvie Eugene MD Unavailable [phone] Sylvie Eugene MD Primary Care Provider Encounter Details Date Type Department Care Team (Late st Contact Info) Description 04/01/2020 Procedure Pass [facility], Ct Scan - [address] [phone] Social History Tobacco Use Types Packs/Day Years [...] on filedocumented in this encounter Care Teams Promotions Assistant Sales Marketing Relationship Specialty Start Date End Date Sylvie Eugene MD [address] [place] [address] [email or web address] PCP - General 06/05/17 Katie Landeros NP [address] [place] [address] Historical LMR Provider 06/03/1708/23/ 2 Sylvie Eugene MD [address] [place] [address] [email or web address] Historical LMR Provider 06/03/17 documented as of this encounter Additional Source Comments The information contained in this document represents components of the legal health record. It is not the complete legal health record.[facility]
--- OUTSIDE RECORDS SUMMARY | 2025-07-09 15:44 | XMS_ITS | Encounter Summary ---
Author Organization [facility] Address [address] [employer] [facility] [address] [place] [address] Phone Care Team Providers Care Change Booth Attendant Name Role Phone Katie Landeros NP Unavailable [phone] Sylvie Eugene MD Unavailable [phone] Sylvie Eugene MD Primary Care Provider Encounter Details Date Type Department Care Team (Late st Contact Info) Description 06/05/2017 Ancillary Orders [facility], [facility] [address] [place] [address] Sylvie Eugene MD [address] [place], [place] [id number] [email or web address] Diagnosis unknown Social History Tobacco Use Types [...] could obscure a lesion on mammography. POS: [id number] Narrative 07/20/2017 11:37 AM EST Screening Mammogram, [...] which couldobscure a lesion on mammography. POS: [id number] Sylvie Eugene MD IMG MG EXAMS Final R esult documented in this encounter Visit Diagnoses Diagnosis Diagnosis unknown Diagnosis unknown documented in this encounter Care Teams Change Booth Attendant Relationship Specialty Start Date End Date Sylvie Eugene MD [address] [place] [address] PCP - General 06/05/17 Katie Landeros NP [address] [place] [address] Historical LMR Provider 06/03/17 2 Sylvie Eugene MD [address] [place] [address] [email or web address] Historical LMR Provider 06/03/17 documented as of this encounter Additional Source Comments The information contained in this document represents components of the legal health record. It is not the complete legal health record.[facility]
--- OUTSIDE RECORDS SUMMARY | 2025-07-09 15:44 | XMS_ITS | Encounter Summary ---
Author Organization [employer] Address [address] [facility] 7t [place] [address] Care Team Providers Care Spiral Machine Operator Name Role Phone Soo Han DDS Unavailable [phone] Encounter Details Date Type Department Care [...] Description 09/19/2025 2:00 PM EST Office Visit [facility] DENTAL [address] [place] [address] Cindy Canales documented as of this encounter Visit Diagnoses Not on filedocumented in this encounter Care Teams Spiral Machine Operator Relationship Specialty Start Date End Date Soo Han DDS 9 [place] [address] Dental Electronic Systems Technician 02/22/25 documented as of this encounter
--- OUTSIDE RECORDS SUMMARY | 2025-07-09 15:44 | XMS_ITS | Clinical Summary ---
Author Organization [employer] Address [address] [place] [address] 7t [place] [address] Care Team Providers Care Breakfast Hostess Name Role Phone Soo Han DDS Unavailable [phone] Allergies No known active allergies Medications [...] Replace Required Details, Route to Pharmacy Electronically, [facility], [facility], cm, 01/05... 2 Active [...] Description 09/19/2025 2:00 PM EST Office Visit [facility] [address] [place] [address] Cindy Canales Health Maintenance Due Date Last [...] Most Recently Relevant to Health Maintenance Insurance [employer] [address] [place] [id number] [address] [place] [id number] Care Teams Breakfast Hostess Relationship Specialty Start Date End Date Soo Han DDS 9 [place] [address] Dental Manager Clinical Research 02/22/25
--- OUTSIDE RECORDS SUMMARY | 2025-07-09 15:44 | XMS_ITS | Encounter Summary ---
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 Breast composition: The breast tissue is heterogeneously dense which mayobscure small masses. FINDINGS: There are scattered groups of amorphous and punctate calcificationsbilaterally, there has been no significant interval change dating back [id number]. No abnormal masses, suspicious calcifications, or other [...] unspecified documented in this encounter Care Teams Meter Tester Relationship Specialty Start Date End Date Sylvie Eugene MD [address] [place] [address] PCP - General 06/05/17 Sylvie Eugene MD [email or web address] Historical LMR Provider 06/03/17 documented as of this encounter Additional Source Comments The information contained in this document represents components of the legal health record. It is not the complete legal health record.[facility]
--- OUTSIDE RECORDS SUMMARY | 2025-07-09 15:45 | XMS_ITS | Encounter Summary ---
Author Organization [facility] Address [address] [employer] [facility] [address] [place] [address] Phone Care Team Providers Care Bow Tacker Name Role Phone Katie Landeros NP Unavailable [phone] Sylvie Eugene MD Unavailable [phone] Sylvie Eugene MD Primary Care Provider Encounter Details Date Type Department Care Team (Late st Contact Info) Description 09/19/2020 Ancillary Orders Virtual Department 30 [place] [address] Sylvie Eugene MD [address] [place] [address] [email or web address] Abnormal mammogram Social History Tobacco Use [...] unspecified documented in this encounter Care Teams Bow Tacker Relationship Specialty Start Date End Date Sylvie Eugene MD [address] [place] [address] PCP - General 06/05/17 Katie Landeros NP 30 [place] [address] Historical LMR Provider 06/03/17 2 Sylvie Eugene MD 30 [place] [address] Historical LMR Provider 06/03/17 documented as of this encounter Additional Source Comments The information contained in this document represents components of the legal health record. It is not the complete legal health record.[facility]
--- OUTSIDE RECORDS SUMMARY | 2025-07-09 15:45 | XMS_ITS | Encounter Summary ---
Author Organization 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 Not on file documented as of this encounter Plan of Treatment Not on file documented as of this encounter Visit Diagnoses Not on filedocumented in this encounter Care Teams Ultimate Hoops Scoreboard Operator Relationship Specialty Start Date End Date Sylvie Eugene [facility] [place] [address] [email or web address] PCP - General 06/05/17 Sylvie Eugene MD [email or web address] Historical LMR Provider 06/03/17 documented as of this encounter Additional Source Comments The information contained in this document represents components of the legal health record. It is not the complete legal health record.[facility]
== END 2025-07-09 11:48 | disposition home or self-care (01) ==
LOC: HO.HMGAL 11:47
PROVIDERS: PCP Family Medicine; Visit Provider Registered Nurse Emergency
DX: J30.89 Other allergic rhinitis (principal)
CPT/HCPCS: 95117; 95165

== ENCOUNTER 2025-07-23 14:03 | Outpatient (AMB) | payer OTHER, SELFPAY ==
--- OUTSIDE RECORDS SUMMARY | 2025-07-23 22:53 | XMS_ITS | Encounter Summary ---
Author Organization [facility] Address [address] [employer] [facility] [address] [place] [address] Phone Care Team Providers Care Parquetry Floor Layer Name Role Phone Katie Landeros SCORING MACHINE OPERATOR Unavailable [phone] Sylvie Eugene MD Unavailable [phone] Sylvie Eugene MD Primary Care Provider Encounter Details Date Type Department Care Team (Late st Contact Info) Description 04/01/2020 Procedure Pass [facility], [facility] - [address] [id number] Social History Tobacco Use Types Packs/Day Years [...] on filedocumented in this encounter Care Teams Parquetry Floor Layer Relationship Specialty Start Date End Date Sylvie Eugene MD [address] [place] [address] [email or web address] PCP - General 06/05/17 Katie Landeros NP [address] [place] [address] Historical LMR Provider 06/03/1708/23/ 2 Sylvie Eugene MD [address] [place] [address] [email or web address] Historical LMR Provider 06/03/17 documented as of this encounter Additional Source Comments The information contained in this document represents components of the legal health record. It is not the complete legal health record.[facility]
--- OUTSIDE RECORDS SUMMARY | 2025-07-23 22:53 | XMS_ITS | Encounter Summary ---
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 It is not the complete legal health record.[facility]
--- OUTSIDE RECORDS SUMMARY | 2025-07-23 22:53 | XMS_ITS | Encounter Summary ---
Author Organization [employer] Address [address] [place] [address] 7t [place] [address] Care Team Providers Care Spare Hand Carding Name Role Phone Soo Han DDS Unavailable [phone] Encounter Details Date Type Department Care [...] Description 09/19/2025 2:00 PM EST Office Visit [facility] DENTAL [address] [place] [address] Cindy Canales documented as of this encounter Visit Diagnoses Not on filedocumented in this encounter Care Teams Spare Hand Carding Relationship Specialty Start Date End Date Soo Han DDS 9 [place] [address] Dental Director Of Labor Relations 02/22/25 documented as of this encounter
--- OUTSIDE RECORDS SUMMARY | 2025-07-23 22:53 | XMS_ITS | Encounter Summary ---
Author Organization [facility] Address [facility] [address] [place] [address] Phone Care Team Providers Care Maternity Nurse Name Role Phone Katie Landeros NP Unavailable [phone] Sylvie Eugene MD Unavailable [phone] Sylvie Eugene MD Primary Care Provider Encounter Details Date Type Department Care Team (Late st Contact Info) Description 06/05/2017 Ancillary Orders [facility], [facility] 30 [place] [address] Sylvie Eugene MD [address] [place], [place] [id number] [email or web address] Diagnosis unknown Social History Tobacco Use Types [...] could obscure a lesion on mammography. POS: [id number] Narrative 07/20/2017 11:37 AM EST Screening Mammogram, [...] which couldobscure a lesion on mammography. POS: [id number] Sylvie Eugene MD IMG MG EXAMS Final R esult documented in this encounter Visit Diagnoses Diagnosis Diagnosis unknown Diagnosis unknown documented in this encounter Care Teams Maternity Nurse Relationship Specialty Start Date End Date Sylvie Eugene MD [address] [place] [address] PCP - General 06/05/17 Katie Landeros NP [address] [place] [address] Historical LMR Provider 06/03/17 2 Sylvie Eugene MD [address] [place] [address] [email or web address] Historical LMR Provider 06/03/17 documented as of this encounter Additional Source Comments The information contained in this document represents components of the legal health record. It is not the complete legal health record.[facility]
--- OUTSIDE RECORDS SUMMARY | 2025-07-23 22:53 | XMS_ITS | Encounter Summary ---
Author Organization [facility] Address [address] [employer] [facility] [address] [place] [address] Phone Care Team Providers Care Teacher Physically Impaired Name Role Phone Katie Landeros TRANSPLANT SURGEON Unavailable [phone] Sylvie Eugene MD Unavailable [phone] Sylvie Eugene MD Primary Care Provider Encounter Details Date Type Department Care Team (Late st Contact Info) Description 05/09/2020 Procedure Pass [facility], [address] [id number] Social History Tobacco Use Types Packs/Day Years [...] on filedocumented in this encounter Care Teams Teacher Physically Impaired Relationship Specialty Start Date End Date Sylvie Eugene MD [address] [place] [address] [email or web address] PCP - General 06/05/17 Katie Landeros NP [address] [place] [address] Historical LMR Provider 06/03/1708/23/ 2 Sylvie Eugene MD [address] [place] [address] [email or web address] Historical LMR Provider 06/03/17 documented as of this encounter Additional Source Comments The information contained in this document represents components of the legal health record. It is not the complete legal health record.[facility]
--- OUTSIDE RECORDS SUMMARY | 2025-07-23 22:53 | XMS_ITS | Encounter Summary ---
Author Organization [employer] Address [address] [place] [address] 7t [place] [address] Care Team Providers Care Data Center Consultant Name Role Phone Soo Han DDS Unavailable [phone] Encounter Details Date Type Department Care [...] Description 09/19/2025 2:00 PM EST Office Visit [facility] DENTAL 73 [place] [address] Cindy Canales documented as of this encounter Visit Diagnoses Not on filedocumented in this encounter Care Teams Data Center Consultant Relationship Specialty Start Date End Date Soo Han DDS 9 [place] [address] Dental Professor Of Art 02/22/25 documented as of this encounter
--- OUTSIDE RECORDS SUMMARY | 2025-07-23 22:53 | XMS_ITS | Clinical Summary ---
Author Organization [employer] Address [address] [place] [address] 7t [place] [address] Care Team Providers Care Butcher Helper Name Role Phone Soo Han DDS Unavailable [phone] Allergies No known active allergies Medications [...] Replace Required Details, [facility] to [facility], [facility], cm, 01/05... 2 Active [...] Description 09/19/2025 2:00 PM EST Office [facility] DENTAL [address] [place] [address] Cindy Canales Health Maintenance Due Date Last [...] Most Recently Relevant to Health Maintenance Insurance [employer] Y [address] [place] [id number] [address] [place] [address] Care Teams Butcher Helper Relationship Specialty Start Date End Date Soo Han DDS 9 [place] [address] Dental Videotape Operator 02/22/25
--- OUTSIDE RECORDS SUMMARY | 2025-07-23 22:53 | XMS_ITS | Encounter Summary ---
Author Organization [facility] Address [address] [employer] [facility] [address] [place] [address] Phone Care Team Providers Care Microbiological Lab Technician Name Role Phone Katie Landeros NP Unavailable Sylvie Eugene MD Unavailable [phone] Sylvie Eugene MD Primary Care Provider Encounter Details Date Type Department Care Team (Late st Contact Info) Description 06/15/2019 Ancillary Orders Virtual Department 30 [place] [address] Sylvie Eugene MD [address] [place] [address] [email or web address] Breast screening Social History Tobacco Use Types [...] unspecified documented in this encounter Care Teams Microbiological Lab Technician Relationship Specialty Start Date End Date Sylvie Eugene [facility] [place] [address] PCP - General 06/05/17 Katie Landeros NP [address] [place] [address] Historical LMR Provider 06/03/1708/23/ 2 Sylvie Eugene MD [address] [place] [address] [email or web address] Historical LMR Provider 06/03/17 documented as of this encounter Additional Source Comments The information contained in this document represents components of the legal health record. It is not the complete legal health record.[facility]
--- OUTSIDE RECORDS SUMMARY | 2025-07-23 22:53 | XMS_ITS | Encounter Summary ---
Author Organization [employer] Address [address] [place] [address] 7t [place] [address] Care Team Providers Care Radioisotope Technologist Name Role Phone Soo Han DDS Unavailable [phone] Encounter Details Date Type Department Care [...] Description 09/19/2025 2:00 PM EST Office Visit [facility] DENTAL [address] [place] [address] Cindy Canales documented as of this encounter Visit Diagnoses Not on filedocumented in this encounter Care Teams Radioisotope Technologist Relationship Specialty Start Date End Date Soo Han DDS 9 [place] [address] Dental Field Crop Farmworker 02/22/25 documented as of this encounter
--- OUTSIDE RECORDS SUMMARY | 2025-07-23 22:53 | XMS_ITS | Encounter Summary ---
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 Breast composition: The breast tissue is heterogeneously dense which mayobscure small masses. FINDINGS: There are scattered groups of amorphous and punctate calcificationsbilaterally, there has been no significant interval change dating back [id number]. No abnormal masses, suspicious calcifications, or other [...] unspecified documented in this encounter Care Teams Side Trimmer Relationship Specialty Start Date End Date Sylvie Eugene MD [address] [place] [address] PCP - General 06/05/17 Sylvie Eugene MD Historical LMR Provider 06/03/17 documented as of this encounter Additional Source Comments The information contained in this document represents components of the legal health record. It is not the complete legal health record.[facility]
--- OUTSIDE RECORDS SUMMARY | 2025-07-23 22:53 | XMS_ITS | Encounter Summary ---
Author Organization [employer] Address [address] [facility] 7t [place] [address] Care Team Providers Care Leak Operator Paraffin Plant Name Role Phone Soo Han DDS Unavailable [phone] Encounter Details Date Type Department Care [...] Description 09/19/2025 2:00 PM EST Office Visit [facility] DENTAL [address] [place] [address] Cindy Canales documented as of this encounter Visit Diagnoses Not on filedocumented in this encounter Care Teams Leak Operator Paraffin Plant Relationship Specialty Start Date End Date Soo Han DDS 9 [place] [address] Dental Tire Mechanic 02/22/25 documented as of this encounter
--- OUTSIDE RECORDS SUMMARY | 2025-07-23 22:53 | XMS_ITS | Encounter Summary ---
Author Organization [facility] Address [address] [employer] [facility] [address] [place] [address] Phone Care Team Providers Care Presser All Around Name Role Phone Katie Landeros ENTRANCE GUARD Unavailable [phone] Sylvie Eugene MD Unavailable [phone] Sylvie Eugene MD Primary Care Provider Encounter Details Date Type Department Care Team (Late st Contact Info) Description 04/02/2020 Procedure Pass [facility], [address] [address] Social History Tobacco Use Types Packs/Day Years [...] on filedocumented in this encounter Care Teams Presser All Around Relationship Specialty Start Date End Date Sylvie Eugene MD [address] [place] [address] [facility] [email or web address] PCP - General 06/05/17 Katie Landeros NP [address] [place] [address] Historical LMR Provider 06/03/1708/23/ 2 Sylvie Eugene MD [address] [place] [address] [email or web address] Historical LMR Provider 06/03/17 documented as of this encounter Additional Source Comments The information contained in this document represents components of the legal health record. It is not the complete legal health record.[facility]
--- OUTSIDE RECORDS SUMMARY | 2025-07-23 22:53 | XMS_ITS | Clinical Summary ---
Author Organization [facility] Address [address] [place] [address] Care Team Providers Care Retort Kiln Burner Name Role Phone Sylvie Eugene MD Primary Care Provider [phone] Allergies No known active allergies Medications traMADol [...] Influenza Vaccine 03/16/2025 COVID-19 Vaccine (1 - 2024- season) 2025 RSV Vaccine 50 years and old er and Patients (1 - 1-dose 75+ series) 2047 Insurance Care Teams Retort Kiln Burner Relationship Specialty Start Date End Date Sylvie Eugene MD [address] [place] [address] PCP - General 01/23/23
--- OUTSIDE RECORDS SUMMARY | 2025-07-23 22:53 | XMS_ITS | Encounter Summary ---
Author Organization [facility] Address [address] [employer] [facility] [address] [place] [address] Phone Care Team Providers Care Monkey Breeder Name Role Phone Katie Landeros NP Unavailable Sylvie Eugene MD Unavailable [phone] Sylvie Eugene MD Primary Care Provider Encounter Details Date Type Department Care Team (Late st Contact Info) Description 09/19/2020 Ancillary Orders Virtual Department 30 [place] [address] Sylvie Eugene MD [address] [place] [address] [email or web address] Abnormal mammogram Social History Tobacco Use [...] unspecified documented in this encounter Care Teams Monkey Breeder Relationship Specialty Start Date End Date Sylvie Eugene MD [address] [place] [address] PCP - General 06/05/17 Katie Landeros NP 30 [place] [address] Historical LMR Provider 06/03/17 2 Sylvie Eugene MD 30 [place] [address] Historical LMR Provider 06/03/17 documented as of this encounter Additional Source Comments The information contained in this document represents components of the legal health record. It is not the complete legal health record.[facility]
--- OUTSIDE RECORDS SUMMARY | 2025-07-23 22:53 | XMS_ITS | Encounter Summary ---
Author Organization [employer] Address [address] [facility] 7[address] [place] [address] Care Team Providers Care Stockfeed Miller Name Role Phone Soo Han DDS Unavailable [phone] Encounter Details Date Type Department Care [...] Description 09/19/2025 2:00 PM EST Office Visit [facility] DENTAL [address] [place] [address] Cindy Canales documented as of this encounter Visit Diagnoses Not on filedocumented in this encounter Care Teams Stockfeed Miller Relationship Specialty Start Date End Date Soo Han DDS [address] [place] [address] Dental Conference Planner 02/22/25 documented as of this encounter
--- OUTSIDE RECORDS SUMMARY | 2025-07-23 22:53 | XMS_ITS | Clinical Summary ---
Author Organization [facility] Address [address] [facility] [address] [place] [address] Phone Care Team Providers Care Woods Manager Name Role Phone Sylvie Eugene MD Unavailable [phone] Sylvie Eugene MD Primary Care Provider Allergies [...] Active ferrous sulfate 325 mg (65 mg [place] iron) EC tablet Take 325 mg by [...] malignant screening-i.e. mammogram, Pap smear. 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 PAP SMEAR (THIN PREP) CE: SPECIMEN ADEQUACY: Satisfactory for evaluation; transformation zone absent/insufficient . INTERPRETATION: EPITHELIAL CELL ABNORMALITY - SQUAMOUS. Low grade squamous intraepithelial lesion. This specimen was analyzed by the automated ThinPrep Imaging System ([employer] and manually rescreened by a ship purser and/or pathologist. Electronically Signed Out By: MD [...] by real-time polymerase chain reaction (PCR) at [facility], [address] [place] [address] using the FDA-approved BD Onclarity9 HPV Assay with extended genotyping. Uses of the assay in scenarios other than those approved by the FDA should be considered off-label use. The accuracy and precision of this test for all other off-label specimen sources has been verified in the Cytopathology Laboratory of the [facility] and has not been cleared or [...] : 1970 (Age: 54) Sex: F Institution: [facility] Location: [facility] Date of Collection: 07/25/2024 Date of Reported: 07/27/2024 12:54 Results to: Norman Gordon MD, BS [facility] Final Diagnosis A. PAP SMEAR (THIN PREP) CE: SPECIMEN ADEQUACY: Satisfactory for evaluation; transformation zone absent/insufficient . INTERPRETATION: EPITHELIAL CELL ABNORMALITY - SQUAMOUS. Low grade squamous intraepithelial lesion. This specimen was analyzed by the automated ThinPrep Imaging System ([employer] and manually rescreened by a ship purser and/or pathologist. [facility] Gross Description [facility] Results\Interp retation A. PAP SMEAR (THIN PREP) CE: High-risk HPV Panel w/ extended genotyping POSHPV 16-NEG HPV 18-NEG HPV 45-NEG HPV 33/58-NEG HPV 31-NEG HPV 56/59/66-NEG HPV 51-NEG HPV 52-POSHPV 35/39/68-NEG Performed by real-time polymerase chain reaction (PCR) at [facility], [address] [place] [address] using the FDA-approved BD Onclarity HPV Assay with extended genotyping. Uses of the assay in scenarios other than those approved by the FDA should be considered off-label use. The accuracy and precision of this test for all other off-label specimen sources has been verified in the Cytopathology Laboratory of the [facility] and has not been cleared or approved by the U.S. Food and Drug Administration. Clinical correlation is advised. The assay assesses the E6/E7 DNA target and utilizes human beta globin as an internal control. Cytology and HPV testing are screening assays and should not be used as the sole means of detecting cancer. False-positives and false-negatives can occur. [facility] Conversion Type (Conversion Source) 07/25/2024 07/26/2024 9:28 AM EST us Norman Gordon MD CYTOLOGY ORDERABLES Edited Re sult - Final Performing Organization Address [facility]/ZIP Co de Phone Number [address] [address] * (ABNORMAL) Lipid panel (04/02/2020 3:23 AM EDT) HDL 67 mg/dL [facility] Comment: Interpretation <40 mg/dL: Low HDL cholesterol (major risk factor for CHD) Greater than or equal to 60 mg/dL: High HDL cholesterol ( negative risk factor for CHD) HDL - cholesterol is affected by a number of factors, e.g. smoking, excerise, hormones, sex and age. CHOLESTEROL 204 0 - 240 mg/dL [facility] TRIGLYCERIDES 131 30 - 160 mg/dL [facility] LDL 111 50 - 129 mg/dL [facility] Comment: LDL levels in terms of risk for coronary heart disease: <100 mg/dL: Optimal 100-129 mg/dL: Near or above optimal 130-159 mg/dL: Borderline high 160-189 mg/dL: High >190 mg/dL: Very High CARDIAC RISK RATIO 3.0(L) 3.3 - 4.4 C [facility] 04/02/2020 3:23 AM EDT 04/02/2020 3:32 AM EDT us Garett Romo MD LAB BLOOD BKR ORDERABLES Final Result Performing Organization Address City/[facility]/ZIP Co de Phone Number [address] [address] from Last 3 Months or Most Recently Relevant to Health Maintenance Insurance [address] [place] [address] [facility] Advance Directives For more information, please contact: [phone] (9AM - 5PM [facility], Wednesday-Wednesday) * Full Code (Confirmed) (Latest Code Status on File) Date Activated Date Inactivated Comments 04/02/2020 5:37 AM Question Answer Comments Code Status Confirmed With: Patient Code Status Communicated To: Inpatient Attending Care Teams Woods Manager Relationship Specialty Start Date End Date Sylvie Eugene MD [address] [place] [address] PCP - General 06/05/17 Sylvie Eugene MD [email or web address] Historical LMR Provider 06/03/17 Additional Source Comments The information contained in this document represents components of the legal health record. It is not the complete legal health record.[facility]
--- OUTSIDE RECORDS SUMMARY | 2025-07-23 22:53 | XMS_ITS | Encounter Summary ---
Author Organization [facility] Address [address] [employer] [facility] [address] [place] [address] Phone Care Team Providers Care Environmental Services Worker Name Role Phone Katie Landeros NP Unavailable Sylvie Eugene MD Unavailable [phone] Sylvie Eugene MD Primary Care Provider Encounter Details Date Type Department Care Team (Late st Contact Info) Description 05/09/2020 Ancillary Orders Virtual Department [address] [place] [address] Sylvie Eugene MD [address] [place] [address] [email or web address] Breast cancer screening by mammogram [...] mammogram documented in this encounter Care Teams Environmental Services Worker Relationship Specialty Start Date End Date Sylvie Eugene MD [address] [place] [address] PCP - General 06/05/17 Katie Landeros NP [address] [place] [address] Historical LMR Provider 06/03/1708/23/ 2 Sylvie Eugene MD [address] [place] [address] Historical LMR Provider 06/03/17 documented as of this encounter Additional Source Comments The information contained in this document represents components of the legal health record. It is not the complete legal health record.[facility]
--- OUTSIDE RECORDS SUMMARY | 2025-07-23 22:53 | XMS_ITS | Encounter Summary ---
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 It is not the complete legal health record.[facility]
--- OUTSIDE RECORDS SUMMARY | 2025-07-23 22:53 | XMS_ITS | Encounter Summary ---
Author Organization [facility] Address [address] [facility] [address] [place] [address] Phone Care Team Providers Care Gymnasium Teacher Name Role Phone Katie Landeros PODIATRIC AIDE Unavailable [phone] Sylvie Eugene MD Unavailable [phone] Sylvie Eugene MD Primary Care Provider Encounter Details Date Type Department Care Team (Late st Contact Info) Description 09/19/2020 Procedure Pass [facility] - [address] [place] [address] Social History Tobacco Use Types Packs/Day Years [...] on filedocumented in this encounter Care Teams Gymnasium Teacher Relationship Specialty Start Date End Date Sylvie Eugene MD [address] [place] [address] [email or web address] PCP - General 06/05/17 Katie Landeros NP [address] [place] [address] Historical LMR Provider 06/03/1708/23/ 2 Sylvie Eugene MD [address] [place] [address] [email or web address] Historical LMR Provider 06/03/17 documented as of this encounter Additional Source Comments The information contained in this document represents components of the legal health record. It is not the complete legal health record.[facility]
--- OUTSIDE RECORDS SUMMARY | 2025-07-23 22:53 | XMS_ITS | Encounter Summary ---
Author Organization [facility] Address [address] [employer] [facility] [address] [place] [address] Phone Care Team Providers Care Lever Tender Name Role Phone Katie Landeros INSULATION BLANKET MAKER Unavailable [phone] Sylvie Eugene MD Unavailable [phone] Sylvie Eugene MD Primary Care Provider Encounter Details Date Type Department Care Team (Late st Contact Info) Description 07/21/2021 Procedure Pass 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 on file documented as of this encounter Plan of Treatment Not on file documented as of this encounter Visit Diagnoses Not on filedocumented in this encounter Care Teams Lever Tender Relationship Specialty Start Date End Date Sylvie Eugene MD [address] [place] [address] [email or web address] PCP - General 06/05/17 Katie Landeros NP [address] [place] [address] Historical LMR Provider 06/03/17 2 Sylvie Eugene MD [address] [place] [address] [email or web address] Historical LMR Provider 06/03/17 documented as of this encounter Additional Source Comments The information contained in this document represents components of the legal health record. It is not the complete legal health record.[facility]
--- OUTSIDE RECORDS SUMMARY | 2025-07-23 22:53 | XMS_ITS | Encounter Summary ---
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 It is not the complete legal health record.[facility]
--- OUTSIDE RECORDS SUMMARY | 2025-07-23 22:53 | XMS_ITS | Encounter Summary ---
Author Organization [facility] Address [address] [employer] [facility] [address] [place] [address] Phone Care Team Providers Care Operations Superintendent Name Role Phone Katie Landeros DIGITAL OPERATIONS ANALYST Unavailable [phone] Sylvie Eugene MD Unavailable [phone] Sylvie Eugene MD Primary Care Provider Encounter Details Date Type Department Care Team (Late st Contact Info) Description 04/01/2020 Procedure Pass [facility] - [address] [id number] Social History Tobacco Use Types Packs/Day Years [...] on filedocumented in this encounter Care Teams Operations Superintendent Relationship Specialty Start Date End Date Sylvie Eugene MD [address] [place] [address] [email or web address] PCP - General 06/05/17 Katie Landeros NP [address] [place] [address] Historical LMR Provider 06/03/1708/23/ 2 Sylvie Eugene MD [address] [place] [address] [email or web address] Historical LMR Provider 06/03/17 documented as of this encounter Additional Source Comments The information contained in this document represents components of the legal health record. It is not the complete legal health record.[facility]
== END 2025-07-23 14:04 | disposition home or self-care (01) ==
LOC: HO.HMGAL 14:03
PROVIDERS: PCP Family Medicine; Visit Provider Registered Nurse Emergency
DX: J30.89 Other allergic rhinitis (principal)
CPT/HCPCS: 95117; 95165

== ENCOUNTER 2025-07-30 13:33 | Outpatient (AMB) | payer OTHER, SELFPAY ==
--- OUTSIDE RECORDS SUMMARY | 2025-07-26 23:59 | XMS_ITS | Continuity of Care Document ---
Author Organization [facility] Address [address] [place] [address]- Care Team Providers Care Supervisor Mending Name Role Phone Jabier ALBERT, Sylvie Benson Primary Care Physician Encounter [facility] Date(s): 06/26/25 - 07/26/[address] [facility] [address] [place] [address]- Encounter Type: Triage Allergies, Adverse Reactions, Alerts Substance Criticality Severity Reaction Reaction Severity Status Cats Active Dust dust mites Active Pollen trees,grass,stone Active Immunizations Given and Recorded Vaccine Date Status Refusal Reason tetanus-diphtheria toxoids (Td) 10/12/22 Given influenza virus vaccine, inactivated 05/11/22 Jorge rded influenza virus vaccine, inactivated 05/07/21 Jorge rded influenza virus vaccine, inactivated 05/23/19 Jorge rded influenza virus vaccine, inactivated 06/18/18 Jorge rded influenza virus vaccine, inactivated 06/11/17 Jorge rded influenza virus vaccine, inactivated 05/31/17 Jorge rded influenza virus vaccine, inactivated 05/26/16 Jorge rded influenza virus vaccine, inactivated 1 05/14/12 Gi zeonn influenza virus vaccine, inactivated 2 05/23/11 Gi zenon influenza virus vaccine, inactivated 3 05/24/10 Gi zenon influenza virus vaccine, inactivated 4 06/06/09 Gi zenon [id number] 12y+ bivalent booster vax 05/11/22 Recorded SARS-CoV-2 (COVID-19) mRNA-1273 vaccine 06/22/21 R ecorded SARS-CoV-2 (COVID-19) mRNA-1273 vaccine 4/14/21 R ecorded SARS-CoV-2 (COVID-19) mRNA-1273 vaccine 10/30/20 R ecorded Influenza Virus Vaccine (oldterm) 05/07/20 Recorde d Influenza Virus Vaccine (oldterm) 05/07/20 Recorde d pneumococcal 23-valent vaccine 5 09/20/17 Given tetanus/diphtheria/pertussis, acel(Tdap) 6 08/18/12 Given influ virus vac, H1N1, inactive(oldterm) 07/08/09 Given 1Admin Note: VIM 02/15/12 2Admin Note: 03/10/11 vim given today 3Admin Note: VIM given 4Admin Note: Sanof[employer], VIM given, VIM date 03/26/2009 5Result Comment: [09/20/2017] [facility] [id number] 6Admin Note: VIS 09/08/11 Medications acetaminophen 325 mg oral tablet 650 mg, By Mouth, Every 6 hours, May take OTC not to exceed 3000 mg/day, Refills 0, Maintenance, 01/23/23 8:11:00 AM EDT, Partial fill upon patient request if the prescription is for a schedule II opioid drug. Start Date: 01/23/23 Status: Ordered Medication Dispense Status: Completed Total Allowed Fills: 1 Fills Dispensed: 0 aspirin 325 mg oral delayed release tablet 1, tablet, By Mouth, Daily, # 90 tablet, Refills 1, Maintenance, 06/26/25 4:59:00 AM EST, Route to Pharmacy Electronically, [id number], 158, cm, 02/12/25 11:04:00 EDT, Height, 54.5, kg, 01/07/25 12:16:00 EDT, Dry Weight Start Date: 06/26/25 Status: Ordered Medication Dispense Status: Completed Quantity: 90.0 Unit: tablet Total Allowed Fills: 1 Fills Dispensed: 0 Azo-Cranberry See Instructions, 0 Refills, Maintenance, 04/12/24 11:31:00 AM EDT, Partial fill upon patient request if the prescription is for a schedule II opioid drug. Start Date: 04/12/24 Status: Ordered Medication Dispense Status: Completed Total Allowed Fills: 1 Fills Dispensed: 0 ferrous sulfate 325 mg oral enteric coated tablet See Instructions, Take one tablet By Mouth every other day. Take with vitamin C to help absorption,# 45 tablet, Refills 0, Tot. Refills 0, Maintenance, 04/03/24 9:55:00 AM EDT, Instructions Replace Required Details, Route to Pharmacy Electronically, [facility] #[id number], Partial fill upon patient request if the prescription is for a schedule II opioid drug., 158, cm, 01/06/24 8:53:00 EDT, Height, 67.6, kg, 07/20/23 7:13:00 EST, Dry Weight Start Date: 04/03/24 Status: Ordered Medication Dispense Status: Completed Quantity: 45.0 Unit: tablet Total Allowed Fills: 1 Fills Dispensed: 0 fluticasone 50 mcg/inh nasal spray 2 sprays, Nares, Both, Daily, # 1 each, 5 Refills, Maintenance, 08/20/20 2:50:00 PM EST, [id number], 2 sprays Nares, Both Daily, 160, cm, 08/20/20 14:19:00 EST, Height, 64, kg, 05/02/20 11:40:00 EDT, Dry Weight Start Date: 08/20/20 Status: Ordered Medication Dispense Status: Completed Quantity: 1.0 Unit: each Total Allowed Fills: 6 Fills Dispensed: 0 Lipitor 80 mg oral tablet 1 tablet, By Mouth, Daily, # 90 tablet, 1 Refills, Maintenance, 04/04/25 5:35:00 PM EDT, [facility], 158, cm, 02/12/25 11:04:00 EDT, Height, 54.5, kg, 01/07/25 12:16:00 EDT, Dry Weight Start Date: 04/04/25 Status: Ordered Medication Dispense Status: Completed Quantity: 90.0 Unit: tablet Total Allowed Fills: 1 Fills Dispensed: 0 loratadine 10 mg oral tablet 10 mg, 1, tablet, By Mouth, Daily, # 90 tablet, Refills 1, Tot. Refills 1, Soft Stop, 03/29/23 3:32:00 PM EDT, Route to Pharmacy Electronically, [facility], 158, cm, 02/05/23 12:04:00 EDT, Height, 70, kg, 01/22/23 17:08:00 EDT, Dry Weight Start Date: 03/29/23 Status: Ordered Medication Dispense Status: Completed Quantity: 90.0 Unit: tablet Total Allowed Fills: 2 Fills Dispensed: 0 meclizine 12.5 mg oral tablet 1 tablet = 12.5 mg, By Mouth, 3 times a day, PRN as needed for dizziness, # 100 tablet, 0 Refills, Soft Stop, 01/07/25 4:41:00 PM EDT, Tablet, [facility] #[id number], Partial fill upon patient request if the prescription is for a schedule II opioid drug., 158, cm, 01/07/25 12:16:00 EDT, Height,54.5, kg, 01/07/25 12:16:00 EDT, Dry Weight Start Date: 01/07/25 Status: Ordered Medication Dispense Status: Completed Quantity: 100.0 Unit: tablet Total Allowed Fills: 1 Fills Dispensed: 0 montelukast 10 mg oral tablet 1, tablet, By Mouth, Daily before dinner, # 90 tablet, Refills 1, Maintenance, 05/15/25 4:10:00 PM EDT, Route to Pharmacy Electronically, [facility], 158, cm, 02/12/25 11:04:00 EDT, Height, 54.5, kg, 01/07/25 12:16:00 EDT, Dry Weight Start Date: 05/15/25 Status: Ordered Medication Dispense Status: Completed Quantity: 90.0 Unit: tablet Total Allowed Fills: 1 Fills Dispensed: 0 Proventil HFA 90 mcg/inh inhalation aerosol with adapter 2, puffs, Inhalation, 4 times a day, # 1 each, Refills 1, Tot. Refills 1, Maintenance, 09/07/24 10:59:00 AM EST, Aerosol, Route to Pharmacy Electronically, [id number], [id number], 158, cm, 04/12/24 14:20:00 EDT, Height, 67.6, kg, 07/20/23 7:13:00 EST, Dry Weight Start Date: 09/07/24 Status: Ordered Medication Dispense Status: Completed Quantity: 1.0 Unit: each Total Allowed Fills: 2 Fills Dispensed: 0 Vitamin C See Instructions, By Mouth Daily, 0 Refills, Maintenance, 04/12/24 11:31:00 AM EDT, Partial fill upon patient request if the prescription is for a schedule II opioid drug. Start Date: 04/12/24 Status: Ordered Medication Dispense Status: Completed Total Allowed Fills: 1 Fills Dispensed: 0 Problem List Condition Confirmation Course Effective Dates Status H ealth Status Informant Abnormal cervical Papanicolaou smear 1 Confirmed Active Acute pyelonephritis 2 Confirmed Active ALLERGIC RHINITIS Confirmed 02/22/09 Active Arthritis of knee Confirmed Active Asthma Confirmed Active Bacterial vaginosis Confirmed Active Sleep disturbance Confirmed Active History of CVA in adulthood Confirmed Active Migraine headache Confirmed Active Frequent PVCs Confirmed Active Obstructive sleep apnea Confirmed Active Preop examination Confirmed Active Prediabetes Confirmed Active Tubular adenoma of colon 3 Confirmed 07/22/23 Active Vertigo Confirmed Active 1LEEP 1989 2hosp at [facility] 02/18 3repeat screening in 2029 Social History Social History Type Response Smoking Status Former smoker, quit more than 30 days ago; Other: smoked age [age]; entered on: 07/01/20 Sexual Orientation Self described orien tation: ; Straight or heterosexual Sex Sex Representation Female (finding) Patient Care team information Care Team Personnel Name: Anabelle Thomas RN Position: [facility] RN Member Role: Primary Care Nurse Name: Sylvie Eugeen MD Position: [facility] Physician - Primary Care Member Role: PCP Address: [address] [place] [address] Telecom: Care Team Related Persons Name: ANNELIESE MORALES Name: TAMARA SERNA Name: TAMARA SERNA AND ANNELIESE SISTER Name: HEIDI ABRAHAM Insurance Providers Guarantor name: KADEEM JARAD Health Plan Information #: 1 Payer: [facility] Payer Identifier: NA Member Number: [id number] Group Number: [id number] Subscriber Identifier: NA Relationship to Subscriber: self Coverage Type: Commercial Managed Care - HMO Coverage Verification Date: NA Telecom: NA Address:
--- OUTSIDE RECORDS SUMMARY | 2025-07-30 19:42 | XMS_ITS | Encounter Summary ---
Author Organization [employer] Address [address] [place] [address] 7t [place] [address] Care Team Providers Care Steel Worker Name Role Phone Soo Han DDS Unavailable [phone] Encounter Details Date Type Department Care [...] Description 09/19/2025 2:00 PM EST Office Visit [facility] DENTAL [address] [place] [address] Cindy Canales documented as of this encounter Visit Diagnoses Not on filedocumented in this encounter Care Teams Steel Worker Relationship Specialty Start Date End Date Soo Han DDS [address] [place] [address] Dental Postal Service Sectional Center Manager 02/22/25 documented as of this encounter
--- OUTSIDE RECORDS SUMMARY | 2025-07-30 19:42 | XMS_ITS | Encounter Summary ---
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 It is not the complete legal health record.[facility]
--- OUTSIDE RECORDS SUMMARY | 2025-07-30 19:42 | XMS_ITS | Encounter Summary ---
Author Organization [employer] Address [address] [place] [address] 7t [place] [address] Care Team Providers Care Director Market Research Name Role Phone Soo Han DDS Unavailable [phone] Encounter Details Date Type Department Care [...] Description 09/19/2025 2:00 PM EST Office Visit [facility] DENTAL [address] [place] [address] Cindy Canales documented as of this encounter Visit Diagnoses Not on filedocumented in this encounter Care Teams Director Market Research Relationship Specialty Start Date End Date Soo Han DDS 9 [place] [address] Dental Expander Machine Operator 02/22/25 documented as of this encounter
--- OUTSIDE RECORDS SUMMARY | 2025-07-30 19:42 | XMS_ITS | Encounter Summary ---
Author Organization [facility] Address [address] [facility] [address] [place] [address] Phone Care Team Providers Care Assembler Surgical Garment Name Role Phone Katie Landeros TYPEWRITER MECHANIC Unavailable [phone] Sylvie Eugene MD Unavailable [phone] Sylvie Eugene MD Primary Care Provider Encounter Details Date Type Department Care Team (Late st Contact Info) Description 07/21/2021 Procedure Pass [facility], [address] [phone] Social History Tobacco Use Types Packs/Day Years [...] 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 Not on file documented as of this encounter Plan of Treatment Not on file documented as of this encounter Visit Diagnoses Not on filedocumented in this encounter Care Teams Assembler Surgical Garment Relationship Specialty Start Date End Date Sylvie Eugene MD [address] [place] [address] [email or web address] PCP - General 06/05/17 Katie Landeros NP [address] [place] [address] Historical LMR Provider 06/03/17 2 Sylvie Eugene MD [address] [place] [address] [email or web address] Historical LMR Provider 06/03/17 documented as of this encounter Additional Source Comments The information contained in this document represents components of the legal health record. It is not the complete legal health record.[facility]
--- OUTSIDE RECORDS SUMMARY | 2025-07-30 19:43 | XMS_ITS | Encounter Summary ---
Author Organization [facility] Address [address] [employer] [facility] [address] [place] [address] Phone Care Team Providers Care Drug Safety Assistant Name Role Phone Katie Landeros HIGH SCHOOL DRAFTING TEACHER Unavailable [phone] Sylvie Eugene MD Unavailable [phone] Sylvie Eugene MD Primary Care Provider Encounter Details Date Type Department Care Team (Late st Contact Info) Description 04/01/2020 Procedure Pass [facility], [facility] Scan - [address] [phone] Social History Tobacco Use Types Packs/Day Years [...] on filedocumented in this encounter Care Teams Drug Safety Assistant Relationship Specialty Start Date End Date Sylvie Eugene MD [address] [place] [address] [email or web address] PCP - General 06/05/17 Katie Landeros NP [address] [place] [address] Historical LMR Provider 06/03/1708/23/ 2 Sylvie Eugene MD [address] [place] [address] [email or web address] Historical LMR Provider 06/03/17 documented as of this encounter Additional Source Comments The information contained in this document represents components of the legal health record. It is not the complete legal health record.[facility]
--- OUTSIDE RECORDS SUMMARY | 2025-07-30 19:43 | XMS_ITS | Encounter Summary ---
Author Organization [facility] Address [address] [facility] [address] [place] [address] Phone Care Team Providers Care Trench Pipe Layer Name Role Phone Katie Landeros DYSLEXIA TEACHER Unavailable [phone] Sylvie Eugene MD Unavailable [phone] Sylvie Eugene MD Primary Care Provider Encounter Details Date Type Department Care Team (Late st Contact Info) Description 05/09/2020 Procedure Pass [facility], [address] [phone] Social History Tobacco Use Types Packs/Day Years [...] on filedocumented in this encounter Care Teams Trench Pipe Layer Relationship Specialty Start Date End Date Sylvie Eugene MD [address] [place] [address] pending sale to no[facility] [email or web address] PCP - General 06/05/17 Katie Landeros NP [address] [place] [address] Historical LMR Provider 06/03/1708/23/ 2 Sylvie Eugene MD [address] [place] [address] [email or web address] Historical LMR Provider 06/03/17 documented as of this encounter Additional Source Comments The information contained in this document represents components of the legal health record. It is not the complete legal health record.[facility]
--- OUTSIDE RECORDS SUMMARY | 2025-07-30 19:43 | XMS_ITS | Encounter Summary ---
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 Breast composition: The breast tissue is heterogeneously dense which mayobscure small masses. FINDINGS: There are scattered groups of amorphous and punctate calcificationsbilaterally, there has been no significant interval change dating back [id number]. No abnormal masses, suspicious calcifications, or other [...] unspecified documented in this encounter Care Teams Circular Saw Filer Relationship Specialty Start Date End Date Sylvie Eugene MD [address] [place] [address] PCP - General 06/05/17 Sylvie Eugene MD [email or web address] Historical LMR Provider 06/03/17 documented as of this encounter Additional Source Comments The information contained in this document represents components of the legal health record. It is not the complete legal health record.[facility]
--- OUTSIDE RECORDS SUMMARY | 2025-07-30 19:43 | XMS_ITS | Clinical Summary ---
Author Organization [facility] Address [address] [facility] [address] [place] [address] Phone Care Team Providers Care Balance Wheel Hand Filer Name Role Phone Sylvie Eugene MD Unavailable [phone] Sylvie Eugene MD Primary Care Provider Allergies [...] Active ferrous sulfate 325 mg (65 mg [place] iron) EC tablet Take 325 mg by [...] malignant screening-i.e. mammogram, Pap smear. 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 PAP SMEAR (THIN PREP) CE: SPECIMEN ADEQUACY: Satisfactory for evaluation; transformation zone absent/insufficient . INTERPRETATION: EPITHELIAL CELL ABNORMALITY - SQUAMOUS. Low grade squamous intraepithelial lesion. This specimen was analyzed by the automated ThinPrep Imaging System ([employer] and manually rescreened by a sheep killer and/or pathologist. Electronically Signed Out By: MD [...] by real-time polymerase chain reaction (PCR) at [facility], [address] [place] [address] using the FDA-approved BD Onclarity9 HPV Assay with extended genotyping. Uses of the assay in scenarios other than those approved by the FDA should be considered off-label use. The accuracy and precision of this test for all other off-label specimen sources has been verified in the Cytopathology Laboratory of the [facility] and has not been cleared or approved [...] : 1970 (Age: 54) Sex: F Institution: [facility] Location: [facility] Date of Collection: 07/25/2024 Date of Reported: 07/27/2024 12:54 Results to: Norman Gordon MD, BS [facility] Final Diagnosis A. PAP SMEAR (THIN PREP) CE: SPECIMEN ADEQUACY: Satisfactory for evaluation; transformation zone absent/insufficient . INTERPRETATION: EPITHELIAL CELL ABNORMALITY - SQUAMOUS. Low grade squamous intraepithelial lesion. This specimen was analyzed by the automated ThinPrep Imaging System ([employer].) and manually rescreened by a sheep killer and/or pathologist. [facility] Gross Description [facility] Results\Interp retation A. PAP SMEAR (THIN PREP) CE: High-risk HPV Panel w/ extended genotyping POSHPV 16-NEG HPV 18-NEG HPV 45-NEG HPV 33/58-NEG HPV 31-NEG HPV 56/59/66-NEG HPV 51-NEG HPV 52-POSHPV 35/39/68-NEG Performed by real-time polymerase chain reaction (PCR) at [facility], [address] [place] [address] using the FDA-approved BD Onclarity HPV Assay with extended genotyping. Uses of the assay in scenarios other than those approved by the FDA should be considered off-label use. The accuracy and precision of this test for all other off-label specimen sources has been verified in the Cytopathology Laboratory of the [facility] and has not been cleared or approved by the U.S. Food and Drug Administration. Clinical correlation is advised. The assay assesses the E6/E7 DNA target and utilizes human beta globin as an internal control. Cytology and HPV testing are screening assays and should not be used as the sole means of detecting cancer. False-positives and false-negatives can occur. [facility] Conversion Type (Conversion Source) 07/25/2024 07/26/2024 9:28 AM EST us Norman Gordon MD CYTOLOGY ORDERABLES Edited Re sult - Final Performing Organization Address [facility]/ZIP Co de Phone Number [address] [address] * (ABNORMAL) Lipid panel (04/02/2020 3:23 AM EDT) HDL 67 mg/dL [facility] Comment: Interpretation <40 mg/dL: Low HDL cholesterol (major risk factor for CHD) Greater than or equal to 60 mg/dL: High HDL cholesterol ( negative risk factor for CHD) HDL - cholesterol is affected by a number of factors, e.g. smoking, excerise, hormones, sex and age. CHOLESTEROL 204 0 - 240 mg/dL [facility] TRIGLYCERIDES 131 30 - 160 mg/dL [facility] LDL 111 50 - 129 mg/dL [facility] Comment: LDL levels in terms of risk for coronary heart disease: <100 mg/dL: Optimal 100-129 mg/dL: Near or above optimal 130-159 mg/dL: Borderline high 160-189 mg/dL: High >190 mg/dL: Very High CARDIAC RISK RATIO 3.0(L) 3.3 - 4.4 C [facility] 04/02/2020 3:23 AM EDT 04/02/2020 3:32 AM EDT us Garett Romo MD LAB BLOOD BKR ORDERABLES Final Result Performing Organization Address City/[facility]/ZIP Co de Phone Number [address] [address] from Last 3 Months or Most Recently Relevant to Health Maintenance Insurance [address] [place] [address] [facility] Advance Directives For more information, please contact: [phone] (9AM - 5PM [facility], Wednesday-Wednesday) * Full Code (Confirmed) (Latest Code Status on File) Date Activated Date Inactivated Comments 04/02/2020 5:37 AM Question Answer Comments Code Status Confirmed With: Patient Code Status Communicated To: Inpatient Attending Care Teams Balance Wheel Hand Filer Relationship Specialty Start Date End Date Sylvie Eugene MD [address] [place] [address] PCP - General 06/05/17 Sylvie Eugene MD Historical LMR Provider 06/03/17 Additional Source Comments The information contained in this document represents components of the legal health record. It is not the complete legal health record.[facility]
--- OUTSIDE RECORDS SUMMARY | 2025-07-30 19:43 | XMS_ITS | Encounter Summary ---
Author Organization 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 It is not the complete legal health record.[facility]
--- OUTSIDE RECORDS SUMMARY | 2025-07-30 19:43 | XMS_ITS | Encounter Summary ---
Author Organization [facility] Address [address] [employer] [facility] [address] [place] [address] Phone Care Team Providers Care Model And Pattern Supervisor Name Role Phone Katie Landeros NP Unavailable Sylvie Eugene MD Unavailable [phone] Sylvie Eugene MD Primary Care Provider Encounter Details Date Type Department Care Team (Late st Contact Info) Description 05/09/2020 Ancillary Orders Virtual Department 30 [place] [address] Sylvie Eugene MD [address] [place] [address] [email or web address] Breast cancer screening by mammogram Social [...] documented in this encounter Care Teams Model And Pattern Supervisor Relationship Specialty Start Date End Date Sylvie Eugene MD [address] [place] [address] PCP - General 06/05/17 Katie Landeros NP [address] [place] [address] Historical LMR Provider 06/03/1708/23/ 2 Sylvie Eugene MD [address] [place] [address] Historical LMR Provider 06/03/17 documented as of this encounter Additional Source Comments The information contained in this document represents components of the legal health record. It is not the complete legal health record.[facility]
--- OUTSIDE RECORDS SUMMARY | 2025-07-30 19:43 | XMS_ITS | Encounter Summary ---
Author Organization [facility] Address [address] [facility] [address] [place] [address] Phone Care Team Providers Care Director Dietetics Department Name Role Phone Katie Landeros NP Unavailable [phone] Sylvie Eugene MD Unavailable [phone] Sylvie Eugene MD Primary Care Provider Encounter Details Date Type Department Care Team (Late st Contact Info) Description 06/05/2017 Ancillary Orders [facility], [facility] [address] [place] [address] Sylvie Eugene MD [address] [place], [place] [phone] [email or web address] Diagnosis unknown Social History Tobacco Use Types [...] could obscure a lesion on mammography. POS: [id number] Narrative 07/20/2017 11:37 AM EST Screening Mammogram, [...] which couldobscure a lesion on mammography. POS: [id number] Sylvie Eugene MD IMG MG EXAMS Final R esult documented in this encounter Visit Diagnoses Diagnosis Diagnosis unknown Diagnosis unknown documented in this encounter Care Teams Director Dietetics Department Relationship Specialty Start Date End Date Sylvie Eugene MD [address] [place] [address] PCP - General 06/05/17 Katie Landeros NP [address] [place] [address] Historical LMR Provider 06/03/17 2 Sylvie Eugene MD [address] [place] [address] [email or web address] Historical LMR Provider 06/03/17 documented as of this encounter Additional Source Comments The information contained in this document represents components of the legal health record. It is not the complete legal health record.[facility]
--- OUTSIDE RECORDS SUMMARY | 2025-07-30 19:43 | XMS_ITS | Encounter Summary ---
Author Organization [employer] Address [address] [place] [address] 7t [place] [address] Care Team Providers Care Career Technology Teacher Name Role Phone Soo Han DDS Unavailable [phone] Encounter Details Date Type Department Care [...] Description 09/19/2025 2:00 PM EST Office Visit [facility] DENTAL [address] [place] [address] Cindy Canales documented as of this encounter Visit Diagnoses Not on filedocumented in this encounter Care Teams Career Technology Teacher Relationship Specialty Start Date End Date Soo Han DDS [address] [place] [address] Dental Biodiesel Engine Specialist 02/22/25 documented as of this encounter
--- OUTSIDE RECORDS SUMMARY | 2025-07-30 19:43 | XMS_ITS | Encounter Summary ---
Author Organization [employer] Address [address] [facility] 7t [place] [address] Care Team Providers Care Cableway Operator Name Role Phone Soo Han DDS Unavailable [phone] Encounter Details Date Type Department Care [...] Description 09/19/2025 2:00 PM EST Office Visit [facility] DENTAL [address] [place] [address] Cindy Canales documented as of this encounter Visit Diagnoses Not on filedocumented in this encounter Care Teams Cableway Operator Relationship Specialty Start Date End Date Soo Han DDS [address] [place] [address] Dental Veterans' Counselor 02/22/25 documented as of this encounter
--- OUTSIDE RECORDS SUMMARY | 2025-07-30 19:43 | XMS_ITS | Encounter Summary ---
Author Organization [facility] Address [address] [employer] [facility] [address] [place] [address] Phone Care Team Providers Care Travertine Installer Name Role Phone Katie Landeros NP Unavailable Sylvie Eugene MD Unavailable [phone] Sylvie Eugene MD Primary Care Provider Encounter Details Date Type Department Care Team (Late st Contact Info) Description 09/19/2020 Ancillary Orders Virtual Department [address] [place] [address] Sylvie Eugene MD [address] [place] [address] [email or web address] Abnormal mammogram Social History Tobacco Use [...] unspecified documented in this encounter Care Teams Travertine Installer Relationship Specialty Start Date End Date Sylvie Eugene MD [address] [place] [address] PCP - General 06/05/17 Katie Landeros NP [address] [place] [address] Historical LMR Provider 06/03/17 2 Sylvie Eugene MD [address] [place] [address] Historical LMR Provider 06/03/17 documented as of this encounter Additional Source Comments The information contained in this document represents components of the legal health record. It is not the complete legal health record.[facility]
--- OUTSIDE RECORDS SUMMARY | 2025-07-30 19:43 | XMS_ITS | Encounter Summary ---
Author Organization [facility] Address [address] [employer] [facility] [address] [place] [address] Phone Care Team Providers Care Vamp Creaser Name Role Phone Katie Landeros NP Unavailable [phone] Sylvie Eugene MD Unavailable [phone] Sylvie Eugene MD Primary Care Provider Encounter Details Date Type Department Care Team (Late st Contact Info) Description 06/15/2019 Ancillary Orders Virtual Department [address] [place] [address] Sylvie Eugene MD [address] [place] [address] [email or web address] Breast screening Social History Tobacco [...] unspecified documented in this encounter Care Teams Vamp Creaser Relationship Specialty Start Date End Date Syl[facility] Eugene [facility] [place] [address] PCP - General 06/05/17 Katie Landeros NP [address] [place] [address] Historical LMR Provider 06/03/1708/23/ 2 Sylvie Eugene MD [address] [place] [address] [email or web address] Historical LMR Provider 06/03/17 documented as of this encounter Additional Source Comments The information contained in this document represents components of the legal health record. It is not the complete legal health record.[facility]
--- OUTSIDE RECORDS SUMMARY | 2025-07-30 19:43 | XMS_ITS | Encounter Summary ---
Author Organization [facility] Address [address] [facility] [address] [place] [address] Phone Care Team Providers Care Therapist Physical Name Role Phone Katie Landeros METAL STAMPING MACHINE OPERATOR Unavailable [phone] Sylvie Eugene MD Unavailable [phone] Sylvie Eugene MD Primary Care Provider Encounter Details Date Type Department Care Team (Late st Contact Info) Description 09/19/2020 Procedure Pass [facility] - [address] [place] [address] Social History Tobacco Use Types Packs/Day Years [...] on filedocumented in this encounter Care Teams Therapist Physical Relationship Specialty Start Date End Date Sylvie Eugene MD [address] [place] [address] [email or web address] PCP - General 06/05/17 Katie Landeros NP [address] [place] [address] Historical LMR Provider 06/03/1708/23/ 2 Sylvie Eugene MD [address] [place] [address] [email or web address] Historical LMR Provider 06/03/17 documented as of this encounter Additional Source Comments The information contained in this document represents components of the legal health record. It is not the complete legal health record.[facility]
--- OUTSIDE RECORDS SUMMARY | 2025-07-30 19:43 | XMS_ITS | Encounter Summary ---
Author Organization [facility] Address [address] [facility] [address] [place] [address] Phone Care Team Providers Care Patient Registration Representative Name Role Phone Katie Landeros QUALITY ENGINEERING MANAGER Unavailable [phone] Sylvie Eugene MD Unavailable [phone] Sylvie Eugene MD Primary Care Provider Encounter Details Date Type Department Care Team (Late st Contact Info) Description 04/01/2020 Procedure Pass [facility] - [address] [id number] Social History Tobacco Use Types Packs/Day Years [...] on filedocumented in this encounter Care Teams Patient Registration Representative Relationship Specialty Start Date End Date Sylvie Eugene MD [address] [place] [address] [email or web address] PCP - General 06/05/17 Katie Landeros NP [address] [place] [phone] Historical LMR Provider 06/03/1708/23/ 2 Sylvie Eugene MD [address] [place] [address] [email or web address] Historical LMR Provider 06/03/17 documented as of this encounter Additional Source Comments The information contained in this document represents components of the legal health record. It is not the complete legal health record.[facility]
--- OUTSIDE RECORDS SUMMARY | 2025-07-30 19:43 | XMS_ITS | Encounter Summary ---
Author Organization [facility] Address [address] [facility] [address] [place] [address] Phone Care Team Providers Care Leather Stripping Machine Operator Name Role Phone Katie Landeros VICE PRESIDENT COMPLIANCE Unavailable [phone] Sylvie Eugene MD Unavailable [phone] Sylvie Eugene MD Primary Care Provider Encounter Details Date Type Department Care Team (Late st Contact Info) Description 04/02/2020 Procedure Pass [facility], [address] [address] Social History Tobacco Use Types Packs/Day Years [...] on filedocumented in this encounter Care Teams Leather Stripping Machine Operator Relationship Specialty Start Date End Date Sylvie Eugene MD [address] [place] [address] [email or web address] PCP - General 06/05/17 Katie Landeros NP [address] [place] [address] Historical LMR Provider 06/03/1708/23/ 2 Sylvie Eugene MD [address] [place] [address] [email or web address] Historical LMR Provider 06/03/17 documented as of this encounter Additional Source Comments The information contained in this document represents components of the legal health record. It is not the complete legal health record.[facility]
--- OUTSIDE RECORDS SUMMARY | 2025-07-30 19:43 | XMS_ITS | Clinical Summary ---
Author Organization [facility] [employer] Address [address] [place] [address] [address] [place] [address] Care Team Providers Care 6Th Grade Teacher Name Role Phone Soo Han DDS Unavailable [phone] Allergies No known active allergies Medications [...] Replace Required Details, [facility] to [facility]ically[facility], cm, 01/05... 2 Active Social [...] Description 09/19/2025 2:00 PM EST Office Visit [facility] [address] [place] [address] Cindy Canales Health Maintenance Due Date Last [...] Most Recently Relevant to Health Maintenance Insurance [employer] [address] [place] [id number] [address] [place] [id number] Care Teams 6Th Grade Teacher Relationship Specialty Start Date End Date Soo Han DDS [address] [place] [address] Dental Patternmaker Apprentice Metal 02/22/25
--- OUTSIDE RECORDS SUMMARY | 2025-07-30 19:43 | XMS_ITS | Clinical Summary ---
Author Organization [facility] Address [address] [place] [address] Care Team Providers Care Security Administrator Name Role Phone Sylvie Eugene MD Primary Care Provider [phone] Allergies No known active allergies Medications traMADol [...] 1-dose 75+ series) 2047 Insurance Care Teams Security Administrator Relationship Specialty Start Date End Date Sylvie Eugene MD [address] [place] [address] PCP - General 01/23/23
--- OUTSIDE RECORDS SUMMARY | 2025-07-30 19:43 | XMS_ITS | Encounter Summary ---
Author Organization [employer] Address [address] [facility] 7t [place] [address] Care Team Providers Care Seam Steamer Name Role Phone Soo Han DDS Unavailable [phone] Encounter Details Date Type Department Care [...] Description 09/19/2025 2:00 PM EST Office Visit [facility] [address] [place] [address] Cindy Canales documented as of this encounter Visit Diagnoses Not on filedocumented in this encounter Care Teams Seam Steamer Relationship Specialty Start Date End Date Soo Han DDS [address] [place] [address] Dental Laboratory Immunologist 02/22/25 documented as of this encounter
--- OUTSIDE RECORDS SUMMARY | 2025-07-30 19:43 | XMS_ITS | Encounter Summary ---
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 It is not the complete legal health record.[facility]
== END 2025-07-30 13:33 | disposition home or self-care (01) ==
LOC: HO.HMGAL 13:33
PROVIDERS: PCP Family Medicine; Visit Provider Registered Nurse Emergency
DX: J30.89 Other allergic rhinitis (principal)
CPT/HCPCS: 95117; 95165